=== PATIENT | female | born 2005 | race Hispanic/Latino ===

== ENCOUNTER 2024-07-30 17:02 | Inpatient (IN) | payer OTHER, SELFPAY ==
[2024-07-30] VITALS (20 sets, daily range): BP systolic 81–126; BP diastolic 42–85; BMI 35.4; BMI 31.4
[2024-07-30 13:48] LABS: % Eosinophils 0.4 % (0-6); % Immature Granulocytes 0.7 % (0-0.5); % Lymphocytes 23.5 % (20.5-51.1); % Monocytes 4.1 % (1.7-9.3); % Neutrophils 71.3 % (42.2-75.2); Absolute Immature Granulocytes 0.1 10^3/uL (0-0.05); Absolute Lymphocytes 2.1 10^3/uL (1.2-3.4); Absolute Monocytes 0.4 10^3/uL (0.1-0.6); Absolute Neutrophils 6.5 10^3/uL (1.4-6.5); Hematocrit 27.4 % (37.0-47.0); Mean Corp Hgb Conc. 29.2 g/dL (33.0-37.0); Mean Corpuscular Hgb 25.9 pg (27.0-31.0); Mean Corpuscular Volume 88.7 fL (81.0-99.0); Mean Platelet Volume 9.1 fL (7.4-10.4); Nucleated Red Blood Cells % 0.3 %; Platelet Count 329 10^3/uL (130-400); Red Blood Cell Count 3.09 10^6/uL (4.20-5.40); White Blood Cell Count 9.1 10^3/uL (4.8-10.8)
[2024-07-30 14:07] LABS: AST (SGOT) 90 U/L (14-36); Albumin 2.6 g/dl (3.5-5.0); Alkaline Phosphatase 182 U/L (38-126); Blood Urea Nitrogen 9 mg/dl (7-17); Calcium 7.4 mg/dl (8.4-10.2); Carbon Dioxide 16 mmol/L (22-30); Chloride 105 mmol/L (98-107); Glucose 115 mg/dl (70-99); Potassium 3.6 mmol/L (3.5-5.1); Sodium 135 mmol/L (135-145); Total Bilirubin 2.6 mg/dl (0.2-1.3); eGFR > 60.00
[2024-07-30 14:13] LABS: Lactic Acid 6.1 mmol/L (0.7-2.0)
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
[2024-07-30] MEDS: DILAUDID 0.25 MG IV (14:38)
[2024-07-30] MEDS: ZOSYN 100 IV ×2 (15:01→21:41)
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
[2024-07-30 15:38] LABS: ALT (SGPT) 21 U/L (0-35)
[2024-07-30] MEDS: CLEOCIN 50 IV (15:44)
[2024-07-30] MEDS: NSS 1000 IV ×3 (15:50→17:11)
[2024-07-30] MEDS: VANCOCIN 540 MG IV (15:51)
--- NOTE | 2024-07-30 16:17 | HPS.HSE ---
Family Physician
-
Family Physician: NOT KNOW UNKNOWN - PT DOES
Chief Complaint
-
Severe Right Buttock Pain
History of Present Illness
Patient is a 18 y/o female without significant past medical history who presents with severe right buttock pain. Language line used for translation. Patient reports about 1.5 months ago she developed small pimples on her buttocks. Due to the
location she was unable to care for them properly and they got worse. She reports pain, particularly in the right buttock has gotten significantly worse. She reports only tolerating small amount of food and then she develops vomiting. She denies
fevers, sweats or chills. She reports other symptoms including hair loss, dry skin and easy bruising.
Medical History
Past Medical History
Past Medical History: Reports None
Past Surgical History: Reports None
Social History
Tobacco: Non-smoker
Alcohol: None
Drug: None
Living: Other (Lives with Friends)
Family History
Family History: Not pertinent
Allergies / Home Medications
Allergies reflects when Allergies were last updated in [facility].
Home Medications with original date entered in [facility]
Allergy/Medication List:
Allergies
Allergy/AdvReac Type Severity Reaction Status Date / Time
No Known Allergies Allergy Unverified 07/30/24 14:28
Home Medications
No Meds [No Current Medications] 07/30/24
Review of Systems
-
Unable to obtain full review of systems at this time due to: Language Barrier
Physical Exam
Vital Signs
Vital Signs
Temp Pulse Resp BP Pulse Ox
99.5 F 159 34 119/77 100
07/30/24 13:40 07/30/24 14:37 07/30/24 14:37 07/30/24 14:37 07/30/24 13:40
Physical Exam
General: Well Developed, Well Nourished, Conversant, Obese and Other (Appears in pain)
HEENT: Anicteric and Other (Notable hair loss; Dry Lips)
Respiratory: Clear and Non Labored Respirations
Cardiac: S1/S2, Regular Rhythm and Tachycardia
GI: Soft, Tender (Mild throughout) and Other (Protuberant)
Rectal: Hemorrhoids
Musculoskeletal: No Clubbing and No Cyanosis
Skin: Other (Very dry flaking skin; Significant erythema right buttock, perineum and vulva with some superficial ulcers right buttock; Excoriation from scratching noted; Notable bruising on the bilateral upper extremities)
Neuro: Awake, Alert, Oriented and Nonfocal/grossly intact
Psych: Calm and Other (Appears to have poor insight into her medical condition)
Laboratory Results
-
07/30/24 13:38
07/30/24 13:38
Laboratory Results
Lactic Acid 6.1 mmol/L (0.7-2.0) H* 07/30/24 13:38
Total Bilirubin 2.6 mg/dl (0.2-1.3) H 12 13:38
AST 90 U/L (14-36) H 07/30/24 13:38
ALT 21 U/L (0-35) 07/30/24 13:38
Alkaline Phosphatase 182 U/L (38-126) H 07/30/24 13:38
Data Reviewed
-
CT Scan: Other (Abd/Pelvis CT scan )
Lab Data: Labs Reviewed by me
Impression/Plan
-
Septic Shock with Significant Lactic Acidosis
Right Buttock Cellulitis, high clinical concern for deep infection
-Patient evaluated by Surgery in ED
-Await Abd/Pelvis CT scan
-Continue broad spectrum antibiotics with Vancomycin and Zosyn
-Await blood cultures
-Continue to trend lactic acid
-Start Levophed
Severe Normocytic Anemia, unclear etiology
-Patient reports no menses for several months
-Notable skin bruising
-Check iron, ferritin, TIBC, Vit B12, LDH and haptoglobin
-Blood consent obtained by Shana Johns PA-C using Language Line at time of admission and scanned into chart
Elevated LFTs, possibly related to sepsis/shock liver
-Await CT scan result
-Repeat LFTs in AM
-Consider Hepatitis serologies
-Consider GI consult
DVT proph: SCDs
Code Status: Full Code
[2024-07-30] MEDS: DILAUDID 0.5 MG IV (16:43)
--- NOTE | 2024-07-30 16:52 | CON.INTV ---
Consultation
Consultation Request
Date/Time Consultation Requested: 07/30/2024 - 1609
Date/Time Consultation Performed: 07/30/2024 - 1639
Requesting Provider: Shana Johns PA-C
Performing Provider: Bryce Vergara MD
Reason for Consultation: Lactic acidosis/Hypotensive
Medical History
-
Chief Complaint: Worsening pain on wound on buttocks with chills and fast heart rate
History of Present Illness:
18-year-old female with a past medical history of physical deconditioning due to recent knee injury who presents with worsening pain on a right buttocks wound with chills and fast heart rate. Patient is Bhutanese-speaking and the lead systems developer
was used (rn stars number: [id number]). She says that she fell recently while at work at [employer] and hurt her knee. She has been apparently bedridden after this injury for the last 2 weeks or so with reduced mobility over last 1.5 months. She
developed a pressure injury on her right buttocks which has been increasingly becoming more painful and inflamed. It has been affecting her ability to walk due to the pain. She is also been having abdominal pain with vomiting + diarrhea over the
last week and eating less. In the ER she was afebrile to 99.5 �F, tachycardic to 152 bpm, breathing at 35-40 breaths/min, BP 101/79 and saturating 100% on room air. Labs showed WBC was WNL at 9.1, Hb 8, serum bicarbonate level 16 with pH 7.28,
pCO2 26, glucose 115, lactate 6.1, albumin level 2.6, UDS positive for opiates and TSH WNL at 3.99. Blood cultures were collected. CT chest/abdomen/pelvis was obtained showing trace bilateral pleural effusions (R >L) with severe fatty infiltration
and hepatomegaly, with a nonocclusive splenic vein thrombus with no focal collection or abscess seen in the right pelvic/buttocks region. In the ER she was given clindamycin, IV vancomycin, Zosyn, dilaudid, and NS 0.9% x 2 L. Due to hypotension
with SBP's in the 80s, Levophed was ordered and she was transferred to the ICU for further care. Senior Marketing Coordinator services consulted for additional management/recommendations.
When I saw the patient she was resting in bed in no acute distress. lead systems developer was used (see number above). She endorses pain in her right buttocks which she says the pain has been worsening with a burning sensation for the last several
days. Her friend was at bedside. She currently denies shortness of breath, chest pain, CHATTERJEE, or nausea.
PMHx: Recent knee injury leading to immobilization and right buttocks wound
PSHx: Noncontributory
Past Medical History
Past Medical History: Other (Above as per HPI)
Past Surgical History: Other (Above as per HPI)
Social History
Tobacco: Non-smoker
Alcohol: None
Drug: None
Personal: Single
Living: With Roomate
Employment: Not Employed (Previously worked at [employer]
Family History
Family History: Reviewed & Not Pertinent
Allergies / Home Medications
Allergies
Allergy/AdvReac Type Severity Reaction Status Date / Time
No Known Allergies Allergy Unverified 07/30/24 14:28
Home Medications
�Medication �Instructions �Recorded �Confirmed �Last Taken �Type
No Meds [No Current Medications] 07/30/24 07/30/24 Unknown History
Review of Systems
-
History Source: Patient
All other systems: Negative unless noted
Vitals / Labs / Diagnostic Testing
Vital Signs
Temp Pulse Resp BP Pulse Ox
99.5 F 139 38 102/60 97
07/30/24 13:40 07/30/24 16:15 07/30/24 16:15 07/30/24 16:00 07/30/24 15:45
Lab Data
07/30/24 13:38
07/30/24 13:38
Diagnostic Testing:
Physical Exam
-
HEENT: Normocephalic and Anicteric
Cardiovascular: S1/S2, Peripheral Edema (negative) and Other (Tachycardic)
Respiratory: Wheeze (negative), Rales (bibasilar (L>R)), Rhonchi (negative) and Non-Labored Respirations
GI: Soft, Distended (Abdominal obesity), Tender (Periumbilical) and Normal Bowel Sounds
Neurology: AO x 3 and Tremors (negative)
Skin: Warm, Dry and Other (Large area of erythema with multiple skin tears seen on her right buttock with foul odor; erythema spreads into the perineum; no purulence seen; area is painful to palpation; slow ooze of blood seen from right buttock)
General: Respiratory Distress (negative), Pain (right buttocks wound), Chills (negative) and Sweats (negative)
Assessment
-
Assessment: 18-year-old female with a past medical history of physical deconditioning due to recent knee injury who presents with worsening pain on a right buttocks wound with chills and fast heart rate. Patient is Bhutanese-speaking and the Bhutanese
rn stars was used (rn stars #: [id number]). She says that she fell recently while at work at [employer] and hurt her knee. She has been apparently bedridden after this injury for the last 2 weeks or so with reduced mobility over last 1.5 months.
She developed a pressure injury on her right buttocks which has been increasingly becoming more painful and inflamed. It has been affecting her ability to walk due to the pain. She is also been having abdominal pain with vomiting + diarrhea over
the last week and eating less. In the ER she was afebrile to 99.5 �F, tachycardic to 152 bpm, breathing at 35-40 breaths/min, BP 101/79 and saturating 100% on room air. Labs showed WBC was WNL at 9.1, Hb 8, serum bicarbonate level 16 with pH 7.28,
pCO2 26, glucose 115, lactate 6.1, albumin level 2.6, UDS positive for opiates and TSH WNL at 3.99. Blood cultures were collected. CT chest/abdomen/pelvis was obtained showing trace bilateral pleural effusions (R >L) with severe fatty infiltration
and hepatomegaly, with a nonocclusive splenic vein thrombus with no focal collection or abscess seen in the right pelvic/buttocks region. In the ER she was given clindamycin, IV vancomycin, Zosyn, dilaudid, and NS 0.9% x 2 L. Due to hypotension
with SBP's in the 80s, Levophed was ordered and she was transferred to the ICU for further care. Senior Marketing Coordinator services consulted for additional management/recommendations.
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
Impression:
#Shock: Multiple variables including hypovolemia from reduced PO intake + sepsis from right buttocks wound with extensive cellulitis
#Lactic acidosis with hypotension
#Right buttocks cellulitis with multiple skin tears which are slowly oozing blood
#Tachycardic likely due to SIRS criteria from right buttocks infection
#Transaminitis with hyperbilirubinemia
#Anemia (unknown baseline)
#Metabolic acidosis with increased anion gap due to lactic acidosis
#Hypoalbuminemia
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
#Hepatomegaly with severe fatty infiltration likely due to obesity
#Small bilateral pleural effusions (too small to sample)
#Obesity (BMI: 35.4)
Plan:
- Start levophed and titrate to keep MAP>65
- If levo requirements reach 10mcg/min or greater then would start vasopressin at that time
- Continue with broad-spectrum antibiotics (IV vanco + Zosyn) with surgery consult and wound care consult
- IVF with LR at 120cc/hr
- Follow up blood Cx X 2 (collected 07/30/2024)
- Continue to trend serum HCO3 level; her lactate how normalized, and her ABG showed a pH of 7.28. No need for bicarbonate infusion at this time; continue to monitor
- trend LFTs; check abdominal ultrasound with dopplers given that her LFTs are elevated with elevated T. bili and abdominal pain; check with dopplers given her splenic vein thrombus seen on CT
- Maintain SpO2 >90-94% with supplemental oxygen as needed
- Replete electrolytes with K>4, Mg>2
- Maintain euglycemia with goal BG 140-180
- Trend H/H and transfuse if needed to keep Hb>7g/dL; keep plt>20k, unless there is concern for bleeding then keep plt>50k
- prn nebulized bronchodilators - not currently bronchospastic
- Incentive spirometer encouraged 10x per hour for at least 4 hrs a day
- DVT ppx: SCDs for now given that her right buttock wound is bleeding --> once this bleeding is resolved then would consider starting systemic anticoagulation given presence of splenic vein thrombosis
Admit to ICU for this critically ill patient.
Critical care statement: A total of 40 minutes of critical care time was provided for this patient today. This includes management of unstable vital signs, evaluation of the patient at bedside, reviewing the patient's pertinent medical records
including radiographs, microbiology, laboratory evaluations, and discussion with primary team, consultants, pharmacy, nutrition, physical therapy, case management, charge nurse, critical care nursing, and respiratory therapy.
Data:
CT chest/abdomen/pelvis with IV contrast 07/30/2024:
Trace bilateral pleural effusion, right greater than left. Bibasilar atelectasis.
Hepatomegaly. Severe fatty infiltration.
Nonocclusive splenic vein thrombus. The portal vein is patent.
Mild nonspecific soft tissue stranding within the ischiorectal fossa fat, bilaterally, right slightly greater than left. However, no focal collection or abscess.
[2024-07-30 17:38] LABS: Venous Blood Gas B.E. -13.4 mmol/L (-4 to +4); Venous Blood Gas HCO3 12.2 mmol/L (22-27); Venous Blood Gas O2 Sat % 99.5 %; Venous Blood Gas pCO2 26 mmHg (35-48); Venous Blood Gas pH 7.28 (7.32-7.43); Venous Blood Gas pO2 137 mmHg (30-50)
--- NOTE | 2024-07-30 17:44 | W.PN.UPDATE ---
Update Note
Progress Note Update
This note serves as an addendum to the H&P by plunger shovel operator KERMIT Marjorie JENKINS
HPI
18 Japanese speaker F no significant past medical history who presents with severe right buttock pain. Language line used for translation.
- reports about 1.5 months ago she developed small pimples on her buttocks. Due to the location she was unable to care for them properly and they got worse.
- reports pain, particularly in the right buttock has gotten significantly worse. S
- She denies fevers, sweats or chills.
- She reports other symptoms including hair loss, dry skin and easy bruising.
Reviewed VS:
Vital Signs
Temp Pulse Resp BP Pulse Ox
99.5 F 134 25 99/62 97
07/30/24 13:40 07/30/24 16:45 07/30/24 16:45 07/30/24 16:30 07/30/24 15:45
PE
General: Conversant, Obese and looks toxic
HEENT: Notable hair loss; Dry Lips)
Respiratory: Clear and Non Labored Respirations
Cardiac: S1/S2, Regular Rhythm and Tachycardia
GI: Soft, Tender (Mild throughout) and Other (Protuberant)
Rectal: Hemorrhoids
Musculoskeletal: No Clubbing and No Cyanosis
Skin:
Significant erythema right buttock, perineum and vulva with some superficial ulcers right buttock; Excoriation from scratching noted; Notable bruising on the bilateral upper extremities
Neuro: Awake, Alert, Oriented and Nonfocal/grossly intact
Psych: Appears to have poor insight into her medical condition)
Laboratory Tests
07/30/24
13:38
WBC 9.1
Hgb 8.0 L
MCV 88.7
Carbon Dioxide 16 L
Creatinine 0.3 L
Lactic Acid 6.1 H*
Albumin 2.6 L
BCx sent
NO PRIOR hospitalist admission:
ASSESSMENT & PLAN
Septic Shock despite 2 L of septic fluid bolus
significant Lactic Acidosis
Associated Right Buttock Cellulitis, high clinical concern for deep infection
- Switch to LR 120/H in place of NS
- Pressor : Start Levophed
- empiric Vancomycin and Zosyn
- f/u BCx
- trend lactic acid
- Await CT AP scan to eval for necrotizing fascitis
- GS consulted evaluated in ED
Severe Normocytic Anemia, unclear etiology
-Patient reports no menses for several months
-Notable skin bruising
-Check iron, ferritin, TIBC, Vit B12, LDH and haptoglobin
-Blood consent obtained by Shana Chong PA-C using Language Line at time of admission and scanned into chart
Elevated LFTs, possibly related to sepsis/shock liver
-Await CT scan result
-Repeat LFTs in AM
-Consider Hepatitis serologies
-Consider GI consult
Concerning for HIV
-consent for HIV
DVT proph: SCDs
Code: Full code
ICU
Total Critical Care Time__60 ___ minutes. I was immediately available to the patient and staff. I personally examined, reviewed labs, diagnostic images/reports, interpretations, treatment plans, discussed patient care with other providers and
family or caregivers (if patient is unable to make decisions), entered orders as appropriate and documented the medical record.
[2024-07-30 17:46] LABS: Lactic Acid 0.8 mmol/L (0.7-2.0)
[2024-07-30] MEDS: LEVOPHED 250 IV (17:48)
[2024-07-30 17:51] LABS: HCG, Serum Qualitative Screen Negative
[2024-07-30 17:52] LABS: Folate 2.2 ng/ml (2.76-20); Vitamin B12 448 pg/ml (239-931)
[2024-07-30 17:52] LABS: Venous Blood Gas O2 Therapy Oxygen/Room Air 21%
[2024-07-30] MEDS: LR 1000 IV (17:56)
[2024-07-30 17:58] LABS: Iron 68 ug/dl (37-170); LDH 185 U/L (120-246)
[2024-07-30 18:07] LABS: Percent Saturation 45 % (20-50); Total Iron Binding Capacity 149 ug/dl (265-497)
[2024-07-30 18:15] LABS: Urine Albumin 1+ (Neg - Trace); Urine Bilirubin 1+ (Negative); Urine Character Clear (Clear); Urine Color Yellow; Urine Glucose Negative (Negative); Urine Ketone Trace (Negative); Urine Leukocyte Trace (Negative); Urine Nitrite Negative (Negative); Urine Occult Blood Negative (Negative); Urine Urobilinogen 3+ (Neg - 1+)
[2024-07-30 18:25] LABS: Urine Bacteria Few (Negative); Urine Red Blood Cell 0-2 /HPF (0-2); Urine Squamous Cell 0-2 /LPF (Few); Urine White Cell 0-2 /HPF (0-5)
[2024-07-30 18:31] LABS: Amphetamines Negative (Negative); Barbiturates Negative (Negative); Benzodiazepines Negative (Negative); Buprenorphine Negative (Negative); Cocaine Negative (Negative); Marijuana Negative (Negative); Methadone Negative (Negative); Methamphetamines Negative (Negative); Opiates Positive (Negative); Phencyclidine Negative (Negative); Tricyclic Antidepressants Negative (Negative)
[2024-07-30 18:57] LABS: Fentanyl, Urine Negative (Negative)
--- NOTE | 2024-07-30 20:00 | PTCARENOTE ---
Patient received from the ED accompanied by RN and friend. Transferred and admitted to ICU bed 3361. See assessment charted. Extensive Bilateral buttock wounds noted. Patient is malodorous and unkempt. Complete bath given with linen change. Very dry
on assessment. VSS. Levophed turned off, MAP 96. ST on CM 110-120s.
--- NOTE | 2024-07-30 20:12 | PHA.VAN.IN ---
Assessment
- Assessment
Renal Function: Appears similar to baseline
Concomitant Antimicrobials: Piperacillin/tazobactam, Clindamycin
AUC Dosing Plan
- Dosing Variables
Dosing Weight (kg): 82.2
Dosing CrCl (ml/min): 176
Vd coefficient (L/kg): 0.7
- Empiric Dosing
Initial / Loading Dose: Vanco 2000 mg loading dose given 07/30/24 at 15:01
Maintenance Regimen: Vanco 1500 mg Q12H Starting 07/31/24 0600
Estimated AUC (mcg*h/mL): 521
Estimated Peak (mcg*h/mL): 35.9
Estimated Trough (mcg/ml): 11.5
Estimated Half Life (H): 6.4
- Monitoring
No levels ordered at this time: Consider level in the next few days
Pharmacokinetics Vancomycin I
- -
Patient Age: 18
Patient Sex: Female
Vancomycin Day #: 1
Indication: Skin And Soft Tissue
Requesting Provider: Nat/Colin
Pertinent Antimicrobial Allergies:
NKDA
Height / Weight:
Height 5 ft
Actual Weight 82.2 kg
- Vital Signs / Lab Results
Temp Pulse Resp BP Pulse Ox
99.6 F 125 25 108/67 99
07/30/24 17:54 07/30/24 19:15 07/30/24 19:15 07/30/24 19:00 07/30/24 19:15
Lab Results - Hematology
07/30/24
13:38
WBC 9.1
Lab Results - Chemistry
07/30/24
13:38
BUN 9
Creatinine 0.3 L
Albumin 2.6 L
07/30/24 07/30/24 07/30/24
13:38 17:15 21:30
Lactic Acid 6.1 H* 0.8 Cancelled
Lab Results - Urine
07/30/24
17:15
Urine Nitrite (Reflex) Negative
Leukocyte Esterase Rfl Trace A
Urine WBC (Reflex) 0-2
Ur Squamous Epith Cells 0-2
Urine Bacteria (Reflex) Few A
[2024-07-30 21:10] LABS: TSH Reflex To Free T4 3.99 uIU/ml (0.47-4.68)
--- NOTE | 2024-07-30 21:20 | PTCARENOTE ---
Patient assisted to BSC with assist x 1. Voids 200 cc mekhi urine, cloudy. Skin care given and assisted back to bed. Transfers steadily but LEs weak.
[2024-07-30] MEDS: PEPCID 20 MG IV (21:41)
[2024-07-30] MEDS: TYLENOL 650 MG PO (21:49)
[2024-07-31] VITALS (23 sets, daily range): BP systolic 84–124; BP diastolic 60–82; BMI 32.0
--- NOTE | 2024-07-31 | PTCARENOTE ---
At 2200 patient was provided snack and water. Did not tolerate, vomited. Notified Nilson Conn APN. Made NPO. Incontinent of large amount of urine. Skin care given with linen change. Refused Tigan. Otherwise assessment essentially unchanged.
--- NOTE | 2024-07-31 01:45 | PTCARENOTE ---
Addendum entered by Caroline Grajeda RN 07/31/24 07:39:
Refusing SCDs due to LE discomfort
Original Note:
up to BSC with assistance x 2. Very weak and unsteady on feet. Voided 200, skin care and assisted back to bed.
[2024-07-31] MEDS: LR 1000 IV ×2 (03:11→16:41)
[2024-07-31] MEDS: ZOSYN 100 IV ×4 (03:58→21:32)
[2024-07-31] MEDS: DILAUDID 0.25 MG IV ×4 (03:58→16:54)
--- NOTE | 2024-07-31 04:00 | PTCARENOTE ---
No marked change in assessment. Labs drawn and sent.
[2024-07-31 05:41] LABS: Hematocrit 18.5 % (37.0-47.0); Hemoglobin 5.6 g/dL (12.0-16.0); Mean Corp Hgb Conc. 30.3 g/dL (33.0-37.0); Mean Corpuscular Hgb 26.7 pg (27.0-31.0); Mean Corpuscular Volume 88.1 fL (81.0-99.0); Mean Platelet Volume 9.2 fL (7.4-10.4); Platelet Count 235 10^3/uL (130-400); Red Cell Dist. Width 18.3 % (11.5-14.5); White Blood Cell Count 3.5 10^3/uL (4.8-10.8)
[2024-07-31 05:54] LABS: ALT (SGPT) 11 U/L (0-35); AST (SGOT) 50 U/L (14-36); Alkaline Phosphatase 134 U/L (38-126); Blood Urea Nitrogen 6 mg/dl (7-17); Calcium 6.9 mg/dl (8.4-10.2); Carbon Dioxide 18 mmol/L (22-30); Chloride 105 mmol/L (98-107); Direct Bilirubin 1.7 mg/dl (0.0-0.4); Estimated Creatinine Clearance > 125 ml/min; Glucose 101 mg/dl (70-99); Magnesium 1.5 mg/dl (1.6-2.3); Phosphorus 3.4 mg/dl (2.5-4.5); Sodium 135 mmol/L (135-145); Total Bilirubin 2.3 mg/dl (0.2-1.3); eGFR > 60.00
--- NOTE | 2024-07-31 06:00 | PTCARENOTE ---
H/H low. Labs redrawn per order.
[2024-07-31] MEDS: VANCOCIN 530 MG IV ×2 (06:12→17:08)
[2024-07-31 07:15] LABS: Blood Urea Nitrogen 6 mg/dl (7-17); Calcium 7.1 mg/dl (8.4-10.2); Carbon Dioxide 20 mmol/L (22-30); Chloride 106 mmol/L (98-107); Estimated Creatinine Clearance > 125 ml/min; Glucose 78 mg/dl (70-99); Magnesium 1.5 mg/dl (1.6-2.3); Sodium 134 mmol/L (135-145); eGFR > 60.00
[2024-07-31 07:24] LABS: Hematocrit 17.9 % (37.0-47.0); Hemoglobin 5.4 g/dL (12.0-16.0); Mean Corp Hgb Conc. 30.2 g/dL (33.0-37.0); Mean Corpuscular Hgb 26.3 pg (27.0-31.0); Mean Corpuscular Volume 87.3 fL (81.0-99.0); Mean Platelet Volume 9.3 fL (7.4-10.4); Platelet Count 227 10^3/uL (130-400); Red Blood Cell Count 2.05 10^6/uL (4.20-5.40); Red Cell Dist. Width 18.5 % (11.5-14.5); White Blood Cell Count 3.1 10^3/uL (4.8-10.8)
--- NOTE | 2024-07-31 07:25 | PTCARENOTE ---
Report given to oncoming OTILIA Rush, questions answered. #16 FR Huffman catheter inserted via sterile technique, tolerated well with yellow urine.
--- NOTE | 2024-07-31 07:36 | PTCARENOTE ---
up to BSC with assistance x 2. Very weak and unsteady on feet. Voided 200, skin care and assisted back to bed.
[2024-07-31] MEDS: PEPCID 20 MG IV ×2 (08:14→21:03)
[2024-07-31] MEDS: FLUSH (NSS) 1 FLUSH IV (08:15)
[2024-07-31 08:20] LABS: INR 1.23; PT 15.8 Sec (11.4-14.6)
[2024-07-31 08:21] LABS: APTT 40.5 Sec (23.4-35.0)
--- NOTE | 2024-07-31 08:31 | W.PN.INTV ---
Today's Communication / Plan
Recommendations
Keep MAP >65
Pain control
PICC team is working on IV access - right arm is more swollen but ultrasound shows no evidence of thrombus
Antibiotics
Follow-up blood cultures (NGTD)
Transfuse blood products to maintain Hb >7 (patient is not actively bleeding besides low bruise on right buttocks)
Surgery consult with recommendation appreciated
Wound care
If patient remains hemodynamically stable today without vasopressors for >6-8 hours then will downgrade out of ICU to telemetry. Once downgraded then we will sign off. Please call back with any additional questions or concerns.
Assessment
-
Assessment: 18-year-old female with a past medical history of physical deconditioning due to recent knee injury who presents with worsening pain on a right buttocks wound with chills and fast heart rate. Patient is Nicaraguan-speaking and the [place]araguan
whiting can worker was used (whiting can worker #: [id number]). She says that she fell recently while at work at [employer] and hurt her knee. She has been apparently bedridden after this injury for the last 2 weeks or so with reduced mobility over last 1.5 months.
She developed a pressure injury on her right buttocks which has been increasingly becoming more painful and inflamed. It has been affecting her ability to walk due to the pain. She is also been having abdominal pain with vomiting + diarrhea over
the last week and eating less. In the ER she was afebrile to 99.5 �F, tachycardic to 152 bpm, breathing at 35-40 breaths/min, BP 101/79 and saturating 100% on room air. Labs showed WBC was WNL at 9.1, Hb 8, serum bicarbonate level 16 with pH 7.28,
pCO2 26, glucose 115, lactate 6.1, albumin level 2.6, UDS positive for opiates and TSH WNL at 3.99. Blood cultures were collected. CT chest/abdomen/pelvis was obtained showing trace bilateral pleural effusions (R >L) with severe fatty infiltration
and hepatomegaly, with a nonocclusive splenic vein thrombus with no focal collection or abscess seen in the right pelvic/buttocks region. In the ER she was given clindamycin, IV vancomycin, Zosyn, dilaudid, and NS 0.9% x 2 L. Due to hypotension
with SBP's in the 80s, Levophed was ordered and she was transferred to the ICU for further care. Media Supervisor services consulted for additional management/recommendations.
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
Impression:
#Shock: Multiple variables including hypovolemia from reduced PO intake + sepsis from right buttocks wound with extensive cellulitis - shock state now resolved
#Lactic acidosis with hypotension - lactic acidosis now resolved
#Right buttocks cellulitis with multiple skin tears which are slowly oozing blood
#Tachycardic likely due to SIRS criteria from right buttocks infection - HR now normalized
#Transaminitis with hyperbilirubinemia - improving
#Anemia (unknown baseline) - worse (?dilutional)
#Metabolic acidosis with increased anion gap due to lactic acidosis - acidosis improving
#Hypoalbuminemia
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
#Hepatomegaly with severe fatty infiltration likely due to obesity
#Small bilateral pleural effusions (too small to sample)
#Obesity (BMI: 35.4)
Plan:
- Pt now off levophed; keep MAP>65
- Continue with broad-spectrum antibiotics (IV vanco + Zosyn) with surgery consult and wound care consult
- Surgery saw patient and there is no acute need for surgical intervention at this time
- IVF with LR at 120cc/hr --> stop this today as pt is eating
- Follow up blood Cx X 2 (collected 07/30/2024 - NGTD)
- Continue to trend serum HCO3 level; her lactate how normalized, and her ABG showed a pH of 7.28. No need for bicarbonate infusion at this time; continue to monitor; trend VBG to assess pH + pCO2
- trend LFTs; check abdominal ultrasound with dopplers given that her LFTs are elevated with elevated T. bili and abdominal pain; check with dopplers given her splenic vein thrombus seen on CT
- Abdominal ultrasound shows diffusely fatty liver with hepatomegaly with no cholelithiasis, gallbladder wall thickening or biliary ductal dilatation; there was normal directional blood flow in the hepatic and portal veins and unable to confirm
splenic vein thrombosis
- Maintain SpO2 >90-94% with supplemental oxygen as needed
- Replete electrolytes with K>4, Mg>2
- Maintain euglycemia with goal BG 140-180
- Trend H/H and transfuse if needed to keep Hb>7g/dL; keep plt>20k, unless there is concern for bleeding then keep plt>50k
- prn nebulized bronchodilators - not currently bronchospastic
- Incentive spirometer encouraged 10x per hour for at least 4 hrs a day
- DVT ppx: SCDs for now given that her right buttock wound is bleeding --> once this bleeding is resolved then would consider starting systemic anticoagulation given presence of splenic vein thrombosis
If patient remains off vasopressors for at least 6-8 hours and remains clinically stable then will downgrade to telemetry. Once downgraded then home care and home health aides teacher/pulmonary service will sign off. Please call back if there are any additional questions or
concerns.
Data:
CT chest/abdomen/pelvis with IV contrast 07/30/2024:
Trace bilateral pleural effusion, right greater than left. Bibasilar atelectasis.
Hepatomegaly. Severe fatty infiltration.
Nonocclusive splenic vein thrombus. The portal vein is patent.
Mild nonspecific soft tissue stranding within the ischiorectal fossa fat, bilaterally, right slightly greater than left. However, no focal collection or abscess.
Total time spent today was 78 minutes for this encounter. Time includes reviewing laboratory test/imaging results, reviewing pertinent medical records, obtaining and reviewing medical history, performing an appropriate exam, ordering medications,
tests and procedures. Time also includes documentation of this encounter, coordinating patient care and communicating with other healthcare professionals. Total time does not include separately billed tests performed on this date of service.
Subjective Dataa
Subjective Data
Date of Service:
Date of Service: July 31, 2024
Chief Complaint: Media Supervisor Follow Up
Subjective:
Patient seen and evaluated today at bedside. Heart rate 97, BP 119/76 and saturating 99% on room air. Still has pain on her right buttocks region. Afebrile overnight. She denies chest pain, CHATTERJEE, shortness of breath, fevers or chills.
Review of Systems
General: Other (Negative unless mentioned above)
Objective Data
Data Reviewed
Vital Signs / I&O / Oxygen:
Vital Signs
Temp Pulse Resp BP Pulse Ox
97.9 F 109 24 109/68 100
07/31/24 09:48 07/31/24 09:48 07/31/24 09:48 07/31/24 09:48 07/31/24 09:48
Intake and Output
07/30/24 07/31/24 08/01/24
06:59 06:59 06:59
Intake Total 2009 / 2260 250 / 250
Output Total 500 / 500
Balance 1510 / 1760 250 / 250
SaO2 100
Physical Exam
General: Respiratory Distress (negative), Pain (right buttocks region), Chills (negative) and Sweats (negative)
HEENT: Normocephalic and Anicteric
Cardiovascular: S1-S2, Rub (negative) and Peripheral Edema (negative)
Respiratory: Wheeze (negative), Crackles (Bibasilar (L >R)), Rhonchi (negative), Non-Labored Respirations and Stridor (negative)
GI: Distended (Abdominal obesity), Non Tender and Normal Bowel Sounds
Neurology: Awake, Alert and Tremors (negative)
Skin: Warm, Dry, Cyanosis (negative), Jaundice (negative) and Other (arge area of erythema with multiple skin tears seen on her right buttock with foul odor; erythema spreads into the perineum; no purulence seen; area is painful to palpation; slow
ooze of blood seen from right buttock)
Labs/Micro/Reports
Lab Data
07/31/24 06:22
07/31/24 06:22
Laboratory Results
07/31/24
07:59
PT 15.8 H
INR 1.23
APTT 40.5 H
--- NOTE | 2024-07-31 08:37 | PTCARENOTE ---
Addendum entered by Adri Marshall RN 07/31/24 09:54:
first unit PRBC initiated
Original Note:
report received, stat labs sent. increased anxiety and pain. assessments and care provided utilizing video mechanic and welder. monitor sinus tachycardia. generalized anasarca. oriented. c/o tingling sensation soles of feet, left more than right. Dr Molina
at bedside. wound assessments per work list. lips cracked with some bleeding. abdomen soft, hypoactive bowel sounds. c/o generalized severe pain, cries with touch. medicated with dilaudid per prn order. arms and legs bruised.
--- NOTE | 2024-07-31 08:52 | PHA.VAN.FU ---
Vancomycin Assessment / Plan
- Assessment
Renal Function: Stable
WBC's are: Trending Down
In the past 24 hrs, patient has been: Afebrile
Concomitant Antimicrobials: Piperacillin-tazobactam
- Dosing Plan
Continue: Vanc 1500mg IV q12H
- Monitoring Plan
No level(s) ordered at this time: Will order levels after 08/01 1800 dose
- Follow Up
Pharmacy will continue to follow.
Vancomycin Follow UP
- -
Patient Age: 18
Patient Sex: Female
Vancomycin Day #: 2
Indication: Skin And Soft Tissue
Requesting Provider: Nat/Colin
Pertinent Antimicrobial Allergies:
NKDA
Height / Weight:
Height 5 ft 4 in
Actual Weight 82.8 kg
- Vital Signs / Lab Results
Temp Pulse Resp BP Pulse Ox
97.9 F 101 25 118/64 97
07/31/24 08:05 07/31/24 06:00 07/31/24 06:00 07/31/24 04:00 07/31/24 06:00
Lab Results - Hematology
07/30/24 07/31/24 07/31/24
13:38 04:42 06:22
WBC 9.1 3.5 L 3.1 L
Lab Results - Chemistry
07/30/24 07/31/24 07/31/24
13:38 04:42 06:22
BUN 9 6 L 6 L
Creatinine 0.3 L 0.4 L 0.4 L
Estimated Creat Clear > 125 > 125
Albumin 2.6 L 2.0 L
07/30/24 07/30/24 07/30/24
13:38 17:15 21:30
Lactic Acid 6.1 H* 0.8 Cancelled
Lab Results - Urine
07/30/24
17:15
Urine Nitrite (Reflex) Negative
Leukocyte Esterase Rfl Trace A
Ur Squamous Epith Cells 0-2
--- NOTE | 2024-07-31 09:04 | CON.ID ---
Consultation
-
Date/Time Consultation Requested: 07/30/20241957
Date/Time Consultation Performed: 07/31/2024 0830
Requesting Provider: Shana Johns PA-C
Performing Provider: Dr. Cruz
Reason for Consultation: Bilateral buttock cellulitis
Chief Complaint / Past History
History of Present Illness
Domenica Paulson is a 18-year-old female being evaluated at the request of Shana Johns regarding buttock cellulitis. History is obtained from chart review, along with patient interview (via language line).
The patient reports no prior medical history and states that she was in her usual state of health until approximately 1-1/2 months ago. She reports that she recently had a knee injury, having fallen while she was working at [employer]. She reports
the knee injury has gotten worse, with decreased overall mobility over the past 1-1/2 months, but worse over the past approximately 2 weeks.
She also reports that she developed a pimple on her buttock area approximately 1-1/2 months ago when she tried to take care of, but over the interval time discomfort in the buttock region has gotten worse. She found it difficult to take care of at
home, and combined with her decreased mobility and reportedly being bedbound over the past 2 weeks, it has grown increasingly more painful.
Additional history indicates that she has been having abdominal pain with vomiting along with diarrhea over the past week. She has had decreased p.o. intake. She noted some bloody drainage on her bed sheets at home. Currently she has the most
pain in the right buttock region, but notes that discomfort extends out from that area. She additionally reports some bilateral heel discomfort. She notes no prior history of pimples or carbuncles. She has no sick contacts.
Past History
Past Medical History: None
Past Surgical History: None
Allergy History:
pineapple Allergy (Verified 07/31/24 00:13)
Unknown
Medications Reviewed: Yes
Current Antibiotics:
Vancomycin (dosed per pharmacy)
Zosyn 4.5 g IV every 6 hours
Social History
Tobacco: Non-Smoker
Alcohol: None
Drug: None
Personal: Single
Living: Alone
Employment: Employed
Family History
Family History: Not Pertinent
Review of Systems
Vital Signs
Temp Pulse Resp BP Pulse Ox
97.9 F 101 25 118/64 97
07/31/24 08:05 07/31/24 06:00 07/31/24 06:00 07/31/24 04:00 07/31/24 06:00
Physical Exam
Physical Exam
Constitutional: Comfortable, Acutely Ill, Non-toxic and Obese
Head: Normocephalic and Other (Partial alopecia)
Eyes: Pupils Equal, Pupils Round, No Conjunctival Hemorrhage and Sclera Anicteric
Oral: No Thrush and No Ulcers
Cardiovascular: Regular Rate and S1/S2; Negative S3/S4
Pulmonary: Clear; Negative Wheezes, Rales or Rhonchi
Gastrointestinal: Soft, Non Tender, Non Distended and Normal Bowel Sounds
Genito-Urinary: Huffman and Turbid Urine; Negative Hematuria
Extremities: Edema; Negative Cyanosis or Erythema
Musculoskeletal: Negative Joint Swelling or Joint Effusion
Skin: Warm and Dry
Wound: Other (Bilateral buttock excoriations and superficial wounds with marked surrounding erythema. No purulence noted.)
Neurological: Awake and Alert
Psychological: Calm
.
Lab / Diagnostic Study Results
07/31/24 06:22
07/31/24 06:22
Abs Immat Gran (auto) 0.1 10^3/uL (0-0.05) H 07/30/24 13:38
Absolute Neuts (auto) 6.5 10^3/uL (1.4-6.5) 07/30/24 13:38
Absolute Lymphs (auto) 2.1 10^3/uL (1.2-3.4) 07/30/24 13:38
Absolute Monos (auto) 0.4 10^3/uL (0.1-0.6) 07/30/24 13:38
Absolute Basos (auto) 0.0 10^3/uL (0-0.2) 07/30/24 13:38
Immature Gran % 0.7 % (0-0.5) H 07/30/24 13:38
Neutrophils % 71.3 % (42.2-75.2) 07/30/24 13:38
Lymphocytes % 23.5 % (20.5-51.1) 07/30/24 13:38
Monocytes % 4.1 % (1.7-9.3) 07/30/24 13:38
Eosinophils % 0.4 % (0-6) 07/30/24 13:38
Basophils % 0.0 % (0-2) 07/30/24 13:38
PT 15.8 Sec (11.4-14.6) H 07/31/24 07:59
INR 1.23 07/31/24 07:59
Lactic Acid Cancelled 07/30/24 21:30
Ur Squamous Epith Cells 0-2 /LPF (Few) 07/30/24 17:15
Microbiology Results
Micro:
07/31/24 04:22 MRSA Screen - Pending
Nose
07/30/24 15:56 Blood Culture - Pending
Blood/Venous
07/30/24 15:56 Blood Culture - Pending
Blood/Venous
Imaging:
07/30/2024 CT chest / abdomen / pelvis with IV contrast: Hepatomegaly with severe fatty infiltration. No retroperitoneal mass or adenopathy. Nonocclusive thrombus demonstrated throughout most of the splenic vein. Portal vein is patent. No
abdominal free air or ascites. No focal collection or abscess noted. Mild nonspecific soft tissue stranding within the ischial rectal fossa fat bilaterally, right slightly greater than left. No focal collection or abscess seen, although on direct
visualization, attenuation noted in the right buttock/gluteal area on image 105.
Assessment / Plan
Bilateral buttock/gluteal cellulitis with superficial tissue ulcerations
- Given history of immobility, suspect local reaction to incontinence
Marked anemia
SIRS (hypotension, tachycardia, leukopenia)
Fatty liver
Elevated bilirubin
Obesity
Recommendations:
Continue with empiric vancomycin and Zosyn for the present.
Monitor white count and temperature curve.
Trend hemoglobin. Transfusion per primary service.
Continue with supportive measures. Local care to the superficial buttock wounds.
Follow pending cultures.
Further recommendations as additional data is returned.
Care Review
Plan reviewed with: Nurse
[2024-07-31] MEDS: KCL 40 MEQ PO (09:26)
[2024-07-31] MEDS: FOLVITE 1 MG PO (09:26)
[2024-07-31] MEDS: MAGNESIUM SULFATE 50 IV (10:10)
--- NOTE | 2024-07-31 10:14 | CM ---
Initial assessment and case management consult completed with the assistance of Language Line audio/video medical office administrator
Pharmacy verified: [facility] @ [address] [place] [address], [place], [place]
No Family Physician
Lives with friend/primary contact, Chad Smith in a 2 story home; bathroom on 1st floor; has been staying on the 2nd floor; 2nd floor bath has tub w/shower
PLOF: reported she recently needs assistance with ADLs; unable to go up/down stairs; unable to walk; does not drive; currently unemployed
No DME
No history of SNF or Home Health utilization
Friend will transport home; takes the Bus when she needs transport
Midline IV Cath insertion ordered
No Medication Coverage; no medical insurance
Plan: CM will monitor hospital course and coordinate discharge planning when determined
[2024-07-31 10:39] LABS: Glycohemoglobin (HgbA1c) 4.7 % (4.0-5.6)
--- NOTE | 2024-07-31 11:55 | CON.ONC ---
Impression
Impression
Septic shock secondary to right buttocks wound with extensive cellulitis
Normocytic anemia, folic acid deficiency
Possible nonocclusive splenic vein thrombosis, seen on CT but not by ultrasound
Plan
Plan
I suspect that anemia is multifactorial, including marrow suppression from prolonged infection, folic acid deficiency/malnutrition, blood loss from wound. She also reports a history of anemia at baseline, of unknown etiology.
Would transfuse as clinically indicated
Fecal occult blood testing
Continue folic acid and B12 supplementation. Iron stores are replete, no need for iron supplementation.
Broad-spectrum antibiotics and supportive care per primary team
Would hold off on any anticoagulation for possible nonocclusive splenic vein thrombus in the setting of significant anemia, and thrombus not seen on ultrasound
Patient History
History of Present Illness
This is a 26-year-old Yi-speaking female who presented to the emergency room on July 30, 2024 with progressive buttock cellulitis. She reports that she fell at work 6 weeks ago and had a knee injury, for which she spent a lot of time in
bed. She developed a pimple to her buttocks, which has progressed and caused significant swelling and cellulitis. CBC upon admission was noted for hemoglobin of 8, white blood cell count of 9.1 and platelet count of 329. With IV fluids, her CBC
today shows hemoglobin of 5.4 with an MCV of 87.3. White blood cell count is 3.1 and platelet count is 227. Reticulocyte count is 2%. Haptoglobin is pending. Iron studies are consistent with anemia of chronic disease. Folate is low at 2.2. She
has had some bleeding from her cellulitis, but denies bleeding elsewhere. She has not had a menstrual period in many months. She reports nausea and vomiting, weight loss.
She does report a history of anemia, without further explanation. She has not needed blood transfusions in the past.
CT scans showed severe fatty liver with hepatomegaly, inflammation consistent with her cellulitis and possible nonocclusive thrombus in the splenic vein. Ultrasound of the abdomen did not identify any thrombus.
She is currently receiving broad-spectrum antibiotics, blood transfusion, and pressor support in the ICU.
She was interviewed with the use of a language line supervisor plate pasting
Past-Medical/Surgical History
Past medical/surgical history, only noted for anemia
Social history: Lives with friends, previously worked at [employer]
Family history: Mother with diabetes
Patient Medication
�Medication �Instructions �Recorded �Confirmed �Last Taken �Type
No Meds [No Current Medications] 07/30/24 07/30/24 Unknown History
Active Medications
Generic Name Dose Route Start Last Admin
Trade Name Freq PRN Reason Stop Dose Admin
Acetaminophen 650 mg 07/30/24 19:58 07/30/24 21:49
Acetaminophen 325 Mg Tablet PO 08/27/24 19:57 650 mg
Q4HPRN PRN Administration
CHATTERJEE/mild pain/temp > 100.4 F
Acetaminophen 650 mg 07/30/24 19:58
Acetaminophen 650 Mg Rectal Suppository RECTAL 08/27/24 19:57
Q4HPRN PRN
CHATTERJEE/ mild pain/ temp >/= 100.4F
Cyanocobalamin 1,000 mcg 08/01/24 08:00
Cyanocobalamin 1,000 Mcg Tablet PO 08/29/24 07:59
DAILY LINDA
Famotidine 20 mg 07/30/24 20:00 07/31/24 08:14
Famotidine 20 Mg/2 Ml Vial IV 08/27/24 19:59 20 mg
Q12 LINDA Administration
Folic Acid 1 mg 07/31/24 10:00 07/31/24 09:26
Folic Acid 1 Mg Tablet PO 08/28/24 09:59 1 mg
DAILY LINDA Administration
Hydromorphone HCl 0.25 mg 07/30/24 19:58 07/31/24 08:14
Hydromorphone 0.25 Mg/0.5 Ml Syringe IV 08/13/24 19:57 0.25 mg
Q3HPRN PRN Administration
severe pain
Norepinephrine Bitartrate 4 mg in 250 mls @ 0 mls/hr 07/30/24 17:45 07/30/24 17:48
Levophed IV 250 mls
PER PROTOCOL LINDA Administration
Protocol
Per Protocol
Lactated Ringer's 1,000 mls @ 120 mls/hr 07/30/24 18:00 07/31/24 03:11
Lr IV 1,000 mls
.Q8H20M LINDA Administration
Piperacillin Sod/Tazobactam Sod 4.5 gram in 100 mls @ 200 mls/hr 07/30/24 21:00 07/31/24 09:11
Zosyn IV 100 mls
Q6H LINDA Administration
Vancomycin HCl 1,500 mg/ 530 mls @ 353.333 mls/hr 07/31/24 06:00 07/31/24 06:12
Sodium Chloride IV 530 mls
Q12H LINDA Administration
Oxycodone HCl 5 mg 07/30/24 19:58
Oxycodone 5 Mg Regular Release Tablet PO 08/13/24 19:57
Q4HPRN PRN
moderate pain
Sodium Chloride 0 flush 07/30/24 18:00 07/31/24 08:15
Sodium Chloride 0.9% (Flush) Syringe IV 08/27/24 17:59 1 flush
PER PROTOCOL LINDA Administration
Trimethobenzamide HCl 200 mg 07/30/24 23:13
Trimethobenzamide 200 Mg/2 Ml Vial IM 08/27/24 23:12
Q6HPRN PRN
Nausea and vomiting
Review of Systems
-
All Other Systems: Not reviewed unless documented
Physical Exam
-
General: No Apparent Distress, Conversant and Appears Chronically Ill
HEENT: Moist Mucous Membranes (Dry cracked lips) and Other (Hair loss noted)
Neurology: Non Focal, No Lateralizing Symptoms and No Word Finding Difficulty
Psych: Calm and Intact Judgement/Insight
Labs
Lab Results
WBC 3.1 10^3/uL (4.8-10.8) L 07/31/24 06:22
RBC 2.05 10^6/uL (4.20-5.40) L 07/31/24 06:22
Hgb 5.4 g/dL (12.0-16.0) L* 07/31/24 06:22
Hct 17.9 % (37.0-47.0) L* 07/31/24 06:22
MCV 87.3 fL (81.0-99.0) 07/31/24 06:22
MCH 26.3 pg (27.0-31.0) L 07/31/24 06:22
MCHC 30.2 g/dL (33.0-37.0) L 07/31/24 06:22
RDW 18.5 % (11.5-14.5) H 07/31/24 06:22
Plt Count 227 10^3/uL (130-400) 07/31/24 06:22
MPV 9.3 fL (7.4-10.4) 07/31/24 06:22
Abs Immat Gran (auto) 0.1 10^3/uL (0-0.05) H 07/30/24 13:38
Absolute Neuts (auto) 6.5 10^3/uL (1.4-6.5) 07/30/24 13:38
Absolute Lymphs (auto) 2.1 10^3/uL (1.2-3.4) 07/30/24 13:38
Absolute Monos (auto) 0.4 10^3/uL (0.1-0.6) 07/30/24 13:38
Absolute Eos (auto) 0.0 10^3/uL (0-0.7) 07/30/24 13:38
Absolute Basos (auto) 0.0 10^3/uL (0-0.2) 07/30/24 13:38
Immature Gran % 0.7 % (0-0.5) H 07/30/24 13:38
Neutrophils % 71.3 % (42.2-75.2) 07/30/24 13:38
Lymphocytes % 23.5 % (20.5-51.1) 07/30/24 13:38
Monocytes % 4.1 % (1.7-9.3) 07/30/24 13:38
Eosinophils % 0.4 % (0-6) 07/30/24 13:38
Basophils % 0.0 % (0-2) 07/30/24 13:38
Creatinine 0.4 mg/dL (0.6-1.0) L 07/31/24 06:22
Vital Signs
Vital Signs
Temp Pulse Resp BP Pulse Ox
98.1 F 106 28 111/74 99
07/31/24 10:04 07/31/24 11:00 07/31/24 11:00 07/31/24 10:06 07/31/24 11:00
--- NOTE | 2024-07-31 12:32 | W.PN.GS2 ---
Addendum entered and electronically signed by Avni Yancey MD 07/31/24 12:54:
I saw and examined the patient.
The Ammunition Comp[employer] Inspector's note was reviewed and I agree with the note.
Comment: Pt feeling better today than yesterday. Discussed the CT results which do not indicate a need for surgical intervention at this time. Rec local wound care, nutrition, offloading, abx. Pls call with ?s
Original Note:
Today's Communication / Plan
-
no surgical intervention; continue local wound care
Assessment / Plan
-
18 yo female presenting in septic shock from cellulitis to the perineum/buttocks. N/V on presentation which is resolved with treatment of acidosis.
Hematology following for anemia
Metabolic derangements being corrected in ICU
ID following on ABX
CT imaging consistent with cellulitis changes without drainable abscess present or acute intraabdominal pathology.
--No surgical intervention needed at this time, continue local wound care
--Started on clears this am, ok to advance as tolerated from surgical standpoint
--Wound care consulted to follow
--Continue abx as per ID for management of cellulitis
Surgery service to follow peripherally, please call with question's concerns
Subjective Data
-
Date of Service: July 31, 2024
Patient seen and examined at bedside with Dr. Yancey. Feeling a little better today. Notes she was afraid to come to the hospital, but is glad that she did. Denies nausea/vomiting.
Utilized language line it operations specialist #[id number]
Objective Data
-
Intake and Output
07/30/24 07/31/24 08/01/24
06:59 06:59 06:59
Intake Total 2009 1085 / 1085
Output Total 500 / 500 375 / 375
Balance 1510 / 1760 710 / 710
Intake:
Oral fluids 480 / 480 125 / 125
IV fluids (Total) 1079 60 60
Levophed 0 / 0
Lr 1,000 ml @ 120 mls/hr IV . 1079 60
Q8H20M LINDA Rx#:[id number]
IV piggybacks 450 / 700 650 / 650
Blood Product Amount Infused ( 250 / 250
mL)
Packed Rbc Leukoreduced Unit 250 / 250
[id number]
Output:
Urine, Huffman 375 / 375
Urine, Voided 500 / 500
Other:
Number of approximated MODERATE 1
amounts of urine
Vital Signs
Temp Pulse Resp BP Pulse Ox
98.1 F 109 23 113/70 99
07/31/24 12:00 07/31/24 12:00 07/31/24 12:00 07/31/24 12:00 07/31/24 12:00
Lab Results
07/31/24 06:22
07/31/24 06:22
Calcium 7.1 mg/dl (8.4-10.2) L 07/31/24 06:22
Phosphorus 3.4 mg/dl (2.5-4.5) 07/31/24 04:42
Magnesium 1.5 mg/dl (1.6-2.3) L 07/31/24 06:22
Total Bilirubin 2.3 mg/dl (0.2-1.3) H 07/31/24 04:42
Direct Bilirubin 1.7 mg/dl (0.0-0.4) H 07/31/24 04:42
AST 50 U/L (14-36) H 07/31/24 04:42
ALT 11 U/L (0-35) 07/31/24 04:42
Alkaline Phosphatase 134 U/L (38-126) H 07/31/24 04:42
Total Protein 5.0 g/dl (6.3-8.2) L 07/31/24 04:42
Albumin 2.0 g/dl (3.5-5.0) L 07/31/24 04:42
Physical Exam
-
NAD
ABD soft, nt, nd
Wound with ulcerations to the right buttock and significant erythema/excoriations to the BL buttocks, perineum to upper thighs
Huffman with clear, yellow urine
--- NOTE | 2024-07-31 12:42 | PTCARENOTE ---
patien reassessed. multiple MD in to evaluate. first unit PRBC completed without signs reaction. second unit initiated. awaiting ultrasound to evaluate right upper arm prior to VAT team insertion of midline. myles draining mekhi urine. call wheeler in
hand.
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
[2024-07-31] MEDS: ZOFRAN 4 MG IV (13:51)
--- NOTE | 2024-07-31 14:00 | PTCARENOTE ---
Addendum entered by Adri Marshall RN 07/31/24 14:31:
unit PRBC completed without signs transfusion reaction. medicated with dilaudid for pain.
Original Note:
medicated with zofran per prn order for c/o slight nausea. transfusing second unit PRBC without signs reaction
[2024-07-31 15:16] LABS: Hematocrit 27.3 % (37.0-47.0); Hemoglobin 8.9 g/dL (12.0-16.0)
--- NOTE | 2024-07-31 16:47 | PTCARENOTE ---
VAT RN placed midline right arm. patient tearful post procedure. support given. face timing with her mother. urine mekhi orange
--- NOTE | 2024-07-31 20:00 | PTCARENOTE ---
Received patient AAOx3, following commands. Normal sinus/sinus tach 80s-100s, BP stable. Normothermic. +2 pitting edema generalized anasarca, bruising throughout b/l upper extremities. 98% on room air, lung sounds diminished. Abdomen round, obese,
hypoactive bowel sounds. BM with diarrhea. Huffman in place draining yellow/mekhi urine. Stage 2 pressure injuries throughout buttocks/perineum, dressings changed, CDI. PIVs patent, WNL. Midline patent. Call wheeler within reach.
--- NOTE | 2024-07-31 20:00 | PTCARENOTE ---
Cannot verify vitals prior to 1900, previous shift.
[2024-07-31] MEDS: NSS (PRESERVATIVE FREE) 8 ML IV (21:02)
[2024-07-31 21:46] LABS: Blood Urea Nitrogen 4 mg/dl (7-17); Calcium 7.3 mg/dl (8.4-10.2); Carbon Dioxide 19 mmol/L (22-30); Chloride 110 mmol/L (98-107); Estimated Creatinine Clearance > 125 ml/min; Glucose 86 mg/dl (70-99); Magnesium 2.2 mg/dl (1.6-2.3); Potassium 3.6 mmol/L (3.5-5.1); Sodium 134 mmol/L (135-145); eGFR > 60.00
[2024-08-01] VITALS (8 sets, daily range): BP systolic 106–127; BP diastolic 67–83; BMI 32.8
--- NOTE | 2024-08-01 01:15 | PTCARENOTE ---
Patient assessment unchanged from previous, call wheeler within reach.
[2024-08-01] MEDS: DILAUDID 0.25 MG IV ×3 (01:57→13:27)
[2024-08-01] MEDS: ZOSYN 100 IV ×4 (01:57→20:14)
--- NOTE | 2024-08-01 04:41 | PTCARENOTE ---
Patient assessment unchanged from previous, call wheeler within reach.
[2024-08-01] MEDS: VANCOCIN 530 MG IV (05:28)
[2024-08-01 05:36] LABS: Venous Blood Gas O2 Sat % 99.7 %; Venous Blood Gas pCO2 29 mmHg (35-48); Venous Blood Gas pO2 144 mmHg (30-50)
[2024-08-01 06:16] LABS: ALT (SGPT) 13 U/L (0-35); AST (SGOT) 97 U/L (14-36); Alkaline Phosphatase 180 U/L (38-126); Blood Urea Nitrogen 4 mg/dl (7-17); Calcium 7.4 mg/dl (8.4-10.2); Carbon Dioxide 18 mmol/L (22-30); Chloride 110 mmol/L (98-107); Estimated Creatinine Clearance > 125 ml/min; Glucose 83 mg/dl (70-99); Magnesium 2.2 mg/dl (1.6-2.3); Phosphorus 3.6 mg/dl (2.5-4.5); Potassium 3.3 mmol/L (3.5-5.1); Sodium 136 mmol/L (135-145); Total Bilirubin 1.9 mg/dl (0.2-1.3); eGFR > 60.00
[2024-08-01 06:24] LABS: Hematocrit 26.5 % (37.0-47.0); Hemoglobin 8.3 g/dL (12.0-16.0); Mean Corp Hgb Conc. 31.3 g/dL (33.0-37.0); Mean Corpuscular Hgb 27.5 pg (27.0-31.0); Mean Corpuscular Volume 87.7 fL (81.0-99.0); Mean Platelet Volume 8.9 fL (7.4-10.4); Platelet Count 241 10^3/uL (130-400); Red Blood Cell Count 3.02 10^6/uL (4.20-5.40); Red Cell Dist. Width 17.2 % (11.5-14.5); White Blood Cell Count 3.2 10^3/uL (4.8-10.8)
[2024-08-01 06:33] LABS: Vitamin D, 25-OH*** < 12.8 ng/mL (30-80)
[2024-08-01] MEDS: ROXICODONE 5 MG PO ×2 (08:06→15:29)
[2024-08-01] MEDS: NSS (PRESERVATIVE FREE) 8 ML IV (08:06)
[2024-08-01] MEDS: FOLVITE 1 MG PO (08:06)
[2024-08-01] MEDS: PEPCID 20 MG IV (08:06)
[2024-08-01] MEDS: VITAMIN B-12 1000 MCG PO (08:06)
--- NOTE | 2024-08-01 08:31 | W.PN.INTV ---
Today's Communication / Plan
Recommendations
Keep MAP >65
Pain control
Antibiotics
Follow-up blood cultures (NGTD)
Transfuse blood products to maintain Hb >7 with serial H/H
Surgery consult with recommendation appreciated
Wound care
Patient is stable for downgrade out of ICU to telemetry. No additional recommendations at this time. Website Admin/Pulmonary service will now sign off. Please reconsult if there are any additional questions/concerns, or if patient's respiratory
status deteriorates.
Assessment
-
Assessment: 18-year-old female with a past medical history of physical deconditioning due to recent knee injury who presents with worsening pain on a right buttocks wound with chills and fast heart rate. Patient is Italian-speaking and the Italian
structural design engineer was used (structural design engineer #: [id number]). She says that she fell recently while at work at [employer] and hurt her knee. She has been apparently bedridden after this injury for the last 2 weeks or so with reduced mobility over last 1.5 months.
She developed a pressure injury on her right buttocks which has been increasingly becoming more painful and inflamed. It has been affecting her ability to walk due to the pain. She is also been having abdominal pain with vomiting + diarrhea over
the last week and eating less. In the ER she was afebrile to 99.5 �F, tachycardic to 152 bpm, breathing at 35-40 breaths/min, BP 101/79 and saturating 100% on room air. Labs showed WBC was WNL at 9.1, Hb 8, serum bicarbonate level 16 with pH 7.28,
pCO2 26, glucose 115, lactate 6.1, albumin level 2.6, UDS positive for opiates and TSH WNL at 3.99. Blood cultures were collected. CT chest/abdomen/pelvis was obtained showing trace bilateral pleural effusions (R >L) with severe fatty infiltration
and hepatomegaly, with a nonocclusive splenic vein thrombus with no focal collection or abscess seen in the right pelvic/buttocks region. In the ER she was given clindamycin, IV vancomycin, Zosyn, dilaudid, and NS 0.9% x 2 L. Due to hypotension
with SBP's in the 80s, Levophed was ordered and she was transferred to the ICU for further care. Website Admin services consulted for additional management/recommendations.
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
Impression:
#Shock: Multiple variables including hypovolemia from reduced PO intake + sepsis from right buttocks wound with extensive cellulitis - shock state now resolved
#Lactic acidosis with hypotension - lactic acidosis now resolved
#Right buttocks cellulitis with multiple skin tears which are slowly oozing blood
#Tachycardic likely due to SIRS criteria from right buttocks infection
#Transaminitis with hyperbilirubinemia - improving
#Anemia (unknown baseline) - worse (?dilutional)
#Metabolic acidosis with increased anion gap due to lactic acidosis - acidosis improving
#Hypoalbuminemia
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
#Hepatomegaly with severe fatty infiltration likely due to obesity
#Small bilateral pleural effusions (too small to sample)
#Obesity (BMI: 35.4)
Plan:
- Pt now off levophed; keep MAP>65
- Continue with broad-spectrum antibiotics (Zosyn s/p IV vanco) with surgery consult and wound care consult
- Abx as per ID
- Surgery saw patient and there is no acute need for surgical intervention at this time
- Follow up blood Cx X 2 (collected 07/30/2024 - NGTD)
- Continue to trend serum HCO3 level; her lactate how normalized, and her ABG showed a pH of 7.4 this AM (08/01). No need for bicarbonate infusion at this time; continue to monitor
- trend LFTs; check abdominal ultrasound with dopplers given that her LFTs are elevated with elevated T. bili and abdominal pain; check with dopplers given her splenic vein thrombus seen on CT
- Abdominal ultrasound shows diffusely fatty liver with hepatomegaly with no cholelithiasis, gallbladder wall thickening or biliary ductal dilatation; there was normal directional blood flow in the hepatic and portal veins and unable to confirm
splenic vein thrombosis
- Maintain SpO2 >90-94% with supplemental oxygen as needed
- Replete electrolytes with K>4, Mg>2
- Maintain euglycemia with goal BG 140-180
- Trend H/H and transfuse if needed to keep Hb>7g/dL; keep plt>50k given the slow ooze of blood seen on right buttocks wound
- Getting 2 units PRBC this AM - c/t trend H/H s/p transfusion to assess for appropriate rise
- prn nebulized bronchodilators - not currently bronchospastic
- Incentive spirometer encouraged 10x per hour for at least 4 hrs a day
- DVT ppx: SCDs for now given her acute anemia this AM --> once H/H is stable and her right buttocks is not bleeding then would consider starting systemic anticoagulation given suspected splenic vein thrombosis
Patient is stable for downgrade out of ICU to telemetry. No additional recommendations at this time. Website Admin/Pulmonary service will now sign off. Thank you for allowing us to be involved in the care of this patient. Please reconsult if there
are any additional questions/concerns, or if patient's respiratory status deteriorates.
Data:
CT chest/abdomen/pelvis with IV contrast 07/30/2024:
Trace bilateral pleural effusion, right greater than left. Bibasilar atelectasis.
Hepatomegaly. Severe fatty infiltration.
Nonocclusive splenic vein thrombus. The portal vein is patent.
Mild nonspecific soft tissue stranding within the ischiorectal fossa fat, bilaterally, right slightly greater than left. However, no focal collection or abscess.
Total time spent today was 38 minutes for this encounter. Time includes reviewing laboratory test/imaging results, reviewing pertinent medical records, obtaining and reviewing medical history, performing an appropriate exam, ordering medications,
tests and procedures. Time also includes documentation of this encounter, coordinating patient care and communicating with other healthcare professionals. Total time does not include separately billed tests performed on this date of service.
Subjective Dataa
Subjective Data
Date of Service:
Date of Service: August 01, 2024
Chief Complaint: Website Admin Follow Up
Subjective:
Patient seen and evaluated today at bedside. Pain in her belly is now gone. She feels much better today. Still having some pain on the right side of her leg. Afebrile from overnight. Denies chest pain, CHATTERJEE, nausea, fevers or chills.
Review of Systems
General: Other (Negative unless mentioned above)
Objective Data
Data Reviewed
Vital Signs / I&O / Oxygen:
Vital Signs
Temp Pulse Resp BP Pulse Ox
98.7 F 107 30 119/81 98
08/01/24 07:32 08/01/24 09:00 08/01/24 09:00 08/01/24 08:00 08/01/24 09:00
Intake and Output
07/31/24 08/01/24 08/02/24
06:59 06:59 06:59
Intake Total 2009 / 0 3165 / 3165
Output Total 500 / 500 1330 / 1330
Balance 1510 / 1760 1835 / 1835
SaO2 98
Physical Exam
General: Respiratory Distress (negative), Pain (right buttocks region), Chills (negative) and Sweats (negative)
HEENT: Normocephalic and Anicteric
Cardiovascular: S1-S2, Rub (negative) and Peripheral Edema (negative)
Respiratory: Wheeze (negative), Crackles (Bibasilar (L >R)), Rhonchi (negative), Non-Labored Respirations and Stridor (negative)
GI: Soft, Distended (Abdominal obesity), Non Tender and Normal Bowel Sounds
Neurology: Awake, Alert and Tremors (negative)
Skin: Warm, Dry, Cyanosis (negative), Jaundice (negative) and Other (Large area of erythema with multiple skin tears seen on her right buttock; erythema spreads into the perineum; no purulence seen; area is painful to palpation)
Labs/Micro/Reports
Lab Data
08/01/24 05:29
08/01/24 05:29
Microbiology
07/31/24 04:22 Nose MRSA Screen - Final
No Methicillin Resistant Staphylococcus aureus isolated.
07/30/24 15:56 Blood/Venous Blood Culture - Preliminary
No Growth in 24 hours- Final report to follow
07/30/24 15:56 Blood/Venous Blood Culture - Preliminary
No Growth in 24 hours- Final report to follow
[2024-08-01] MEDS: KCL 40 MEQ PO (09:08)
[2024-08-01] MEDS: SODIUM BICARBONATE 650 MG PO ×3 (09:08→21:10)
--- NOTE | 2024-08-01 09:22 | PTCARENOTE ---
report received, assessments per work list. patient anxious. legs with increased discomfort, left greater than right. c/o tingling bilateral lower extremities. roxicodone per prn order. monitor sinus tachycardia. diminished breath sounds. crackles
bases. + 2 edema. abdomen soft, hyperactive bowel sounds. assisted to bedpan, had large liquid yellow stool, complete buttock sacral and perineal wound care completed. wounds bleeding with care. foely draining clear yellow urine.hospitalist at
bedside, orders received. care, assessments and plan of care reviewed with patient utilizing transcriber services
--- NOTE | 2024-08-01 09:30 | PHA.VAN.FU ---
Vancomycin Assessment / Plan
- Assessment
Renal Function: Stable
WBC's are: Trending Down
In the past 24 hrs, patient has been: Afebrile
Concomitant Antimicrobials: Piperacillin-tazobactam
- Dosing Plan
Continue: Vanc 1500mg IV q12H
- Monitoring Plan
Peak Level: 08/01 at 2100
Trough Level: 08/02 at 0530
- Follow Up
Pharmacy will continue to follow.
Vancomycin Follow UP
- -
Patient Age: 18
Patient Sex: Female
Vancomycin Day #: 3
Indication: Skin And Soft Tissue
Requesting Provider: Nat/Colin
Pertinent Antimicrobial Allergies:
NKDA
Height / Weight:
Height 5 ft 4 in
Actual Weight 86.5 kg
- Vital Signs / Lab Results
Temp Pulse Resp BP Pulse Ox
98.7 F 107 30 119/81 98
08/01/24 07:32 08/01/24 09:00 08/01/24 09:00 08/01/24 08:00 08/01/24 09:00
Lab Results - Hematology
07/30/24 07/31/24 07/31/24
13:38 04:42 06:22
WBC 9.1 3.5 L 3.1 L
08/01/24
05:29
WBC 3.2 L
Lab Results - Chemistry
07/30/24 07/31/24 07/31/24
13:38 04:42 06:22
BUN 9 6 L 6 L
Creatinine 0.3 L 0.4 L 0.4 L
Estimated Creat Clear > 125 > 125
Albumin 2.6 L 2.0 L
07/31/24 08/01/24
21:12 05:29
BUN 4 L 4 L
Creatinine 0.3 L 0.4 L
Estimated Creat Clear > 125 > 125
Albumin 2.0 L
07/30/24 07/30/24 07/30/24
13:38 17:15 21:30
Lactic Acid 6.1 H* 0.8 Cancelled
Microbiology Results
07/30/24 15:56 Blood Culture - Preliminary
Blood/Venous No Growth in 24 hours- Final report to follow
07/30/24 15:56 Blood Culture - Preliminary
Blood/Venous No Growth in 24 hours- Final report to follow
[2024-08-01] MEDS: DRISDOL (VITAMIN D2) 50000 UNITS PO (10:09)
--- NOTE | 2024-08-01 10:14 | W.PN.ID1 ---
Date of Service
Date of Service: August 01, 2024
Today's Communication
Continue Zosyn.
Assessment / Plan
Bilateral buttock/gluteal cellulitis with superficial tissue ulcerations
- Given history of immobility, suspect local reaction to incontinence
Marked anemia
SIRS (hypotension, tachycardia, leukopenia)
- improved
Fatty liver
Elevated bilirubin
Obesity
Recommendations:
Continue with empiric Zosyn (day #2). Discontinue further Vanco as MRSA screen is negative.
Monitor white count and temperature curve.
Continue with supportive measures. Local care to the superficial buttock wounds.
Follow pending cultures.
Further recommendations as additional data is returned.
����������������������������������������������������������
Chief Complaint
-: Cellulitis
Subjective / Review of Systems
Review of Systems: No Fever and No Chills
Vital Signs / Physical Exam
Vital Signs
Vital Signs
Temp Pulse Resp BP Pulse Ox
98.7 F 107 30 119/81 98
08/01/24 07:32 08/01/24 09:00 08/01/24 09:00 08/01/24 08:00 08/01/24 09:00
Physical Exam
Constitutional: Comfortable, Chronically Ill, Non-toxic and Obese
Head: Normocephalic
Eyes: No Conjunctival Hemorrhage and Sclera Anicteric
Cardiovascular: S1/S2; Negative S3/S4
Pulmonary: Non Labored
Gastrointestinal: Soft, Non Tender and Non Distended
Neurological: Awake and Alert
Psychological: Calm
Objective Data
Lab Data
Lab Results
08/01/24 05:29
08/01/24 05:29
PT 15.8 Sec (11.4-14.6) H 07/31/24 07:59
INR 1.23 07/31/24 07:59
APTT 40.5 Sec (23.4-35.0) H 07/31/24 07:59
Estimated Creat Clear > 125 ml/min 08/01/24 05:29
Lactic Acid Cancelled 07/30/24 21:30
Total Bilirubin 1.9 mg/dl (0.2-1.3) H 08/01/24 05:29
AST 97 U/L (14-36) H 08/01/24 05:29
ALT 13 U/L (0-35) 08/01/24 05:29
Alkaline Phosphatase 180 U/L (38-126) H 08/01/24 05:29
Most recent labs reviewed.
Micro Results:
07/31/24 04:22 MRSA Screen - Final
Nose No Methicillin Resistant Staphylococcus aureus isolated.
07/30/24 15:56 Blood Culture - Preliminary
Blood/Venous No Growth in 24 hours- Final report to follow
07/30/24 15:56 Blood Culture - Preliminary
Blood/Venous No Growth in 24 hours- Final report to follow
Imaging:
07/30/2024 CT chest / abdomen / pelvis with IV contrast: Hepatomegaly with severe fatty infiltration. No retroperitoneal mass or adenopathy. Nonocclusive thrombus demonstrated throughout most of the splenic vein. Portal vein is patent. No
abdominal free air or ascites. No focal collection or abscess noted. Mild nonspecific soft tissue stranding within the ischial rectal fossa fat bilaterally, right slightly greater than left. No focal collection or abscess seen, although on direct
visualization, attenuation noted in the right buttock/gluteal area on image 105.
(Photo taken 07/31/2024)
--- NOTE | 2024-08-01 10:49 | W.PN.HOSP.TC ---
Today's Communication/Plan
-
Check LE xray
check venous doppler
trend cbc
start vit D supplementation
Tx out of ICU
Assessment / Plan
Assessment / Plan
#Septic Shock with Significant Lactic Acidosis
#Bilateral gluteal/ Buttock Cellulitis with skin ulceration
Lactic acidosis resolved with IV fluid
Patient is off Levophed . Monitor blood pressure.
CT abdomen pelvis was negative for deep tissue infection or abscess
Continue with broad-spectrum antibiotic with zosyn. MRSA negative and vancomycin stopped.
Follow-up on the blood culture data
Surgery signed off. Advance diet.
Wound consult. Off loading.
ID following
#Normocytic anemia which is multifactorial secondary to malnutrition, inflammatory, folate and B12 deficiency
Patient has been started on folate and vitamin B12
No margarito hematuria noted
Check for FOBT would be difficult as patient with perianal and buttocks wound
No margarito luminal bleeding was noted
Hemoglobin of 5.4 s/p 2u of PRBC. Hgb at 8.
Trend H&H and transfuse for hemoglobin less than 7.
Doubt any hemolysis. Reticulocyte count at 2 Expected to be higher.
Iron stores are appropriate. LDH normal. Haptoglobin is pending.
Appreciate oncology assistance
Hemoglobin was 8 on admission. ?chronic anemia
Appreciate oncology recs.
#Left knee pain/brusing from fall
#B/L LE swelling L>R
-Check B/L LE xray as complaining of generalized pain
-Check venous doppler
-Fall prior to arrival-Check B/L LE xray.
#Leukopenia
? Due to sepsis
Trend CBC for now
#Nonocclusive splenic vein thrombosis
On arterial Doppler ultrasound splenic vein thrombosis. Confirmed
Oncology correspondence noted and recommended against anticoagulation
#Hypokalemia/hypomagnesemia
Replete and monitor
Check phos level-wnl
#HypoViT D
-started supplementation
#Hair loss could be due to inflammatory condition
Will need to see dermatology as outpatient
Vitamin B12 and folic supplementation was started
TSH is normal
HIV was checked and pending
#Mild metabolic acidosis
-started po sodium bicarbonate
#Obesity wit hepatomegaly
Will need to f/u with GI as outpatient
Once improvement in mobility recommend wt loss.
DVT proph: SCDs if pt can tolerate it
Code Status: Full Code
PT ordered
Anticipated Discharge: > 48 hours
Subjective/Interval History
-
Date of Service: August 01, 2024
Patient on video call with mother.
states of numbing and tingling in LE started 8 days ago while bedbound
states of body pain diffuse
states of pain at IV site
Denies nausea. having loose stools
mild oozing from wound per RN
used Translational line for interview
Objective Data
-
Labs:
Laboratory Results
08/01/24
05:29
WBC 3.2 L
Hgb 8.3 L
Hct 26.5 L
Plt Count 241
Sodium 136
Potassium 3.3 L
Chloride 110 H
Carbon Dioxide 18 L
BUN 4 L
Creatinine 0.4 L
Glucose 83
Calcium 7.4 L
Total Bilirubin 1.9 H
AST 97 H
ALT 13
Alkaline Phosphatase 180 H
Vital Signs:
Vital Signs
Temp Pulse Resp BP Pulse Ox
98.7 F 107 30 119/81 98
08/01/24 07:32 08/01/24 09:00 08/01/24 09:00 08/01/24 08:00 08/01/24 09:00
I&O
07/31/24 08/01/24 08/02/24
06:59 06:59 06:59
Intake Total 2009 3165 / 3165 580 / 580
Output Total 500 / 500 1330 / 1330 550 / 550
Balance 1510 / 1760 1835 / 1835 30 / 30
Physical Exam
-
General: Well Developed, Well Nourished, No Apparent Distress and Obese
HEENT: Normocephalic, Atraumatic, Moist Mucous Membranes and Other (hair loss/hair wig noted )
Respiratory: Clear to Auscultation
Cardiac: Regular Rhythm and S1/S2; Negative Murmur, Rub or Gallop
GI: Soft, Nontender, Nondistended and Normal Bowel Sounds; Negative Organomegaly
Rectal: Deferred by Provider
Musculoskeletal: No Clubbing, No Cyanosis, Edema, Right Lower Extrem (non pitting ) and Edema, Left Lower Extrem (non pitting )
Skin: Rash (Buttocks ) and Other (bruising noted on Left knee and Right arm)
Neuro: Awake, Alert, Oriented, AO x 3, No Motor Deficits, Nonfocal/Grossly Intact and No Sensory Deficits; Negative Slurred Speech or Facial Droop
Psych: Calm
Data Reviewed
-
Total Time Spent with Patient (in minutes): 56
[2024-08-01 11:21] LABS: % Basophils 0.3 % (0-2); % Eosinophils 2.5 % (0-6); % Immature Granulocytes 0.9 % (0-0.5); % Lymphocytes 25.2 % (20.5-51.1); % Monocytes 4.4 % (1.7-9.3); % Neutrophils 66.7 % (42.2-75.2); Absolute Eosinophils 0.1 10^3/uL (0-0.7); Absolute Lymphocytes 0.8 10^3/uL (1.2-3.4); Absolute Monocytes 0.1 10^3/uL (0.1-0.6); Absolute Neutrophils 2.1 10^3/uL (1.4-6.5); Nucleated Red Blood Cells % 0 %
--- NOTE | 2024-08-01 13:53 | PTCARENOTE ---
patient xray completed. unable to tolerate ultrasound in department due to pain. returned to unit. medicated with dilaudid, ultrasound notified to come to unit to complete study
--- NOTE | 2024-08-01 20:15 | PTCARENOTE ---
Received patient AAOx3, following commands. Pain when cleaned but patient reports being able to move extremities more and feels 'very happy'. Normal sinus/sinus tach 90s-100s, BP stable, normothermic. +2/3 generalized anasarca, palpable radial and
pedal pulses b/l. 98% on room air, lung sounds clear. Abdomen soft, round, obese, hypoactive BS. Poor appetite. Liquid bowel movement, CHG bath done, sheets changed, myles care done. Myles in place draining yellow urine. PIV and midline patent, WNL.
Call wheeler within reach.
[2024-08-02] VITALS (10 sets, daily range): BP systolic 101–134; BP diastolic 73–94; PULSE 90; O2SAT 99; BMI 32.3
[2024-08-02 02:40] LABS: Haptoglobin 179 mg/dL (30-200)
[2024-08-02] MEDS: ZOSYN 100 IV ×4 (03:12→21:50)
[2024-08-02] MEDS: PEPCID 20 MG PO (08:19)
[2024-08-02] MEDS: VITAMIN B-12 1000 MCG PO (08:19)
[2024-08-02] MEDS: SODIUM BICARBONATE 650 MG PO ×3 (08:19→21:51)
[2024-08-02] MEDS: FOLVITE 1 MG PO (08:19)
[2024-08-02 08:27] LABS: % Basophils 0.4 % (0-2); % Eosinophils 2.5 % (0-6); % Immature Granulocytes 1.1 % (0-0.5); % Lymphocytes 32.4 % (20.5-51.1); % Monocytes 11.5 % (1.7-9.3); % Neutrophils 52.1 % (42.2-75.2); Absolute Eosinophils 0.1 10^3/uL (0-0.7); Absolute Lymphocytes 0.9 10^3/uL (1.2-3.4); Absolute Monocytes 0.3 10^3/uL (0.1-0.6); Absolute Neutrophils 1.5 10^3/uL (1.4-6.5); Hematocrit 27.4 % (37.0-47.0); Hemoglobin 8.4 g/dL (12.0-16.0); Mean Corp Hgb Conc. 30.7 g/dL (33.0-37.0); Mean Corpuscular Hgb 27.6 pg (27.0-31.0); Mean Corpuscular Volume 90.1 fL (81.0-99.0); Mean Platelet Volume 8.6 fL (7.4-10.4); Nucleated Red Blood Cells % 0 %; Platelet Count 248 10^3/uL (130-400); Red Blood Cell Count 3.04 10^6/uL (4.20-5.40); Red Cell Dist. Width 18.4 % (11.5-14.5); White Blood Cell Count 2.8 10^3/uL (4.8-10.8)
[2024-08-02 08:46] LABS: ALT (SGPT) 15 U/L (0-35); AST (SGOT) 116 U/L (14-36); Albumin 2.2 g/dl (3.5-5.0); Alkaline Phosphatase 175 U/L (38-126); Blood Urea Nitrogen < 2 mg/dl (7-17); Calcium 7.8 mg/dl (8.4-10.2); Carbon Dioxide 18 mmol/L (22-30); Chloride 114 mmol/L (98-107); Estimated Creatinine Clearance > 125 ml/min; Glucose 75 mg/dl (70-99); Potassium 3.5 mmol/L (3.5-5.1); Sodium 141 mmol/L (135-145); Total Bilirubin 1.6 mg/dl (0.2-1.3); Total Protein 5.2 g/dl (6.3-8.2); eGFR > 60.00
[2024-08-02] MEDS: DILAUDID 0.25 MG IV (10:19)
--- NOTE | 2024-08-02 11:40 | WOUNDNOTE ---
SACRAL/INNER BUTTOCKS
--- NOTE | 2024-08-02 11:41 | WOUNDNOTE ---
WOC RN note: Patient admitted with severe septic lactic acidosis. Patient lives with friends and has been recently bedbound suspect d/t recent fall at work and hurt her knee.
See H&P for complete history.
PMH: obesity.
Wound Location and type/assessment: Patient admitted with: Multiple scattered deep dermal stage 2 pressure injuries/moisture related injuries bilateral buttocks (R>L) and linear stage 2 vs MASD coccyx crease ulcer. Bruises posterior legs.
Appetite: good.
Pressure redistribution devices in place: Centrella Max air bed. Patient turns with assistance.
Plan: Buttocks and coccyx dressings changed. Patient turned with help from WOC RN Jl Davis and REPAIR COIL WINDER Lukas. Heels off bed with pillows. Bariatric air chair cushion given. PT/OT in to see patient.
Will confirm orders with Dr. Grijalva and discussed with OTILIA Gaytan.
Care plan to be updated and will follow as needed.
Note to case management of equipment requested for discharge: Air mattress if mobility does not improve.
Recommend follow up at wound care center upon discharge.
[2024-08-02 12:13] LABS: HIV Combo Negative (Negative)
--- NOTE | 2024-08-02 12:53 | W.PN.ID1 ---
Date of Service
Date of Service: August 02, 2024
Today's Communication
Continue Zosyn for today.
Assessment / Plan
Bilateral buttock/gluteal cellulitis with superficial tissue ulcerations
- Given history of immobility, suspect local reaction to incontinence
Marked anemia
SIRS (hypotension, tachycardia, leukopenia)
- improved
Fatty liver
Elevated bilirubin
Obesity
Recommendations:
Continue with empiric Zosyn (day #4).
Monitor white count and temperature curve.
Continue with supportive measures. Local care to the superficial buttock wounds.
Follow pending cultures.
Further recommendations as additional data is returned.
����������������������������������������������������������
Chief Complaint
-: Cellulitis
Subjective / Review of Systems
Patient seen and examined. Continues with general body pain. Significant discomfort still noted and excoriated areas of buttock region.
Review of Systems: No Fever and No Chills
Vital Signs / Physical Exam
Vital Signs
Vital Signs
Temp Pulse Resp BP Pulse Ox
98.5 F 105 30 101/76 99
08/02/24 07:13 08/02/24 12:00 08/01/24 10:00 08/02/24 12:00 08/02/24 12:00
Physical Exam
Constitutional: Comfortable, Chronically Ill, Non-toxic and Obese
Head: Normocephalic
Eyes: No Conjunctival Hemorrhage and Sclera Anicteric
Cardiovascular: S1/S2; Negative S3/S4
Pulmonary: Non Labored
Gastrointestinal: Soft, Non Tender and Non Distended
Wound: Other (Buttock wounds dressed. Surrounding tissue remains erythematous, although slight improvement. Wounds appear less 'moist')
Neurological: Awake and Alert
Psychological: Calm
Objective Data
Lab Data
Lab Results
08/02/24 08:20
08/02/24 08:20
PT 15.8 Sec (11.4-14.6) H 07/31/24 07:59
INR 1.23 07/31/24 07:59
APTT 40.5 Sec (23.4-35.0) H 07/31/24 07:59
Estimated Creat Clear > 125 ml/min 08/02/24 08:20
Lactic Acid Cancelled 07/30/24 21:30
Total Bilirubin 1.6 mg/dl (0.2-1.3) H 08/02/24 08:20
AST 116 U/L (14-36) H 08/02/24 08:20
ALT 15 U/L (0-35) 08/02/24 08:20
Alkaline Phosphatase 175 U/L (38-126) H 08/02/24 08:20
Most recent labs reviewed.
Micro Results:
07/30/24 15:56 Blood Culture - Preliminary
Blood/Venous No Growth in 48 hours- Final report to follow
07/30/24 15:56 Blood Culture - Preliminary
Blood/Venous No Growth in 48 hours- Final report to follow
07/31/24 04:22 MRSA Screen - Final
Nose No Methicillin Resistant Staphylococcus aureus isolated.
Imaging:
07/30/2024 CT chest / abdomen / pelvis with IV contrast: Hepatomegaly with severe fatty infiltration. No retroperitoneal mass or adenopathy. Nonocclusive thrombus demonstrated throughout most of the splenic vein. Portal vein is patent. No
abdominal free air or ascites. No focal collection or abscess noted. Mild nonspecific soft tissue stranding within the ischial rectal fossa fat bilaterally, right slightly greater than left. No focal collection or abscess seen, although on direct
visualization, attenuation noted in the right buttock/gluteal area on image 105.
(Photo taken 07/31/2024)
--- NOTE | 2024-08-02 13:26 | W.PN.HOSP.TC ---
Today's Communication/Plan
-
Continue antibiotics for now
Continue vitamin D, folate, B12 supplementation
Increase Dilaudid to 0.5 as needed
Trend CBC
Assessment / Plan
Assessment / Plan
#Septic shock secondary to bilateral gluteal cellulitis with skin ulceration
-Status post vasopressor course with Levophed, has been hemodynamically stable since
-CT A/P was negative for deep tissue infection or abscess
-ID following, has been improving on IV Zosyn; s/p vancomycin, negative MRSA test
-Was evaluated by surgery, recommended no surgical intervention at this time
-Blood cultures pending final results, have been negative after 48 hours
-Continue IV Zosyn, trend CBC and temperature curve, follow-up cultures
-Continue with as needed analgesia
#Leukopenia
-Likely secondary to B vitamin deficiency and reactive component with sepsis
-White cell count has been in the range of 3-4
-Continue to trend CBC
#Bruising
-Patient complaining of generalized discomfort, noted to have bruising along extremities
-Question if she has some underlying coagulopathy
-On arrival PT 15.8, APTT 40.5
-Will repeat coags tomorrow, consider mixing study
#Transaminitis
-ALT levels normal, AST elevated in the 100s (>10 X ALT)
-Suspect that this may be secondary to muscle breakdown and ulcerations
-Will continue to trend LFTs, consider RUQ US
#Normocytic anemia
-Likely multifactorial secondary to malnutrition, folate and B12 deficiency; possible component of inflammatory anemia
-Status post 2 units of PRBC for initial hemoglobin 5.4; most recent hemoglobin 8.4
-Iron panel without evidence of iron deficiency; reticulocyte count 2 likely low in the context of B vitamin deficiency
-No obvious signs of bleeding, trace amounts near her skin ulcers on the buttocks
-Continue to trend daily CBC
#Nonocclusive splenic vein thrombus
-Noted on arterial Doppler ultrasound
-Evaluated by heme/onc, recommended against anticoagulation
#Vitamin D deficiency
-Was started on vitamin D supplement here
#Mild metabolic acidosis
-Likely secondary to infection, was started on oral bicarbonate previously here
-Continue to trend BMP, expect this to improve with elimination of infection
#Hair loss
-Cannot rule out underlying inflammatory condition/autoimmunity
-TSH levels were normal, no other obvious metabolic cause
-Should follow-up with manager of selection and assessment as outpatient
#Hepatomegaly
-With her obesity, suspicion high for NAFLD
-Will need to follow-up with gastroenterology as outpatient
DVT prophylaxis: SCDs
Diet: Regular
CODE STATUS: Full code
Anticipated Discharge: > 48 hours
Subjective/Interval History
-
Date of Service: August 02, 2024
Seen and examined at the bedside. No acute events reported overnight. AFVSS this morning
She does complain of generalized achiness/pain. Still has significant discomfort at the site of the ulcerations on her buttocks. Significant bruising noted along extremity
She denies acute complaints such as chest pain, dyspnea, fevers or chills, nausea/vomiting/diarrhea, abnormal bleeding, paresthesias or weakness
Objective Data
-
Labs:
Laboratory Results
08/02/24
08:20
WBC 2.8 L
Hgb 8.4 L
Hct 27.4 L
Plt Count 248
Sodium 141
Potassium 3.5
Chloride 114 H
Carbon Dioxide 18 L
BUN < 2 L
Creatinine 0.5 L
Glucose 75
Calcium 7.8 L
Total Bilirubin 1.6 H
AST 116 H
ALT 15
Alkaline Phosphatase 175 H
Vital Signs:
Vital Signs
Temp Pulse Resp BP Pulse Ox
98.5 F 105 30 101/76 99
08/02/24 07:13 08/02/24 12:00 08/01/24 10:00 08/02/24 12:00 08/02/24 12:00
I&O
08/01/24 08/02/24 08/03/24
06:59 06:59 06:59
Intake Total 3165 / 3165 1140 / 1140 480 / 480
Output Total 1330 / 1330 3005 / 3005 600 / 600
Balance 1835 / 1835 -1865 / -1865 -120 / -120
Review of Systems
-
History Source: Patient
All other systems: Reviewed and negative
Physical Exam
-
General: Well Developed, Pain, Conversant and Obese
HEENT: Normocephalic, Atraumatic, Moist Mucous Membranes, Anicteric and Other (Thinning hair)
Respiratory: Clear to Auscultation and Non Labored Respirations
Cardiac: Regular Rhythm, S1/S2 and Tachycardic; Negative Murmur, Rub or Gallop
GI: Soft, Nontender, Nondistended and Normal Bowel Sounds
Musculoskeletal: No Clubbing, No Cyanosis and No Edema
Skin: Warm, Dry, Ulcers (Bilateral buttocks, indurated, no purulence or fluctuance) and Other (Bruising along extremity); Negative Rash
Neuro: AO x 3 and Nonfocal/Grossly Intact; Negative Tremors
Psych: Calm
Data Reviewed
-
Labs: Labs Reviewed by me, Discussed with Nurse and Discussed with Patient
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
[2024-08-02] MEDS: DILAUDID 0.5 MG IV (16:57)
--- NOTE | 2024-08-02 17:08 | PTCARENOTE ---
Pt received start of shift, HR Sinus Arrhythmia. Pt AAOx4. Lungs diminished at bases, shallow breathing. Huffman catheter in place - urine clear yellow, large output. Language line in room. Pt very tender on buttocks. PRN dilaudid - see MAR. Assisted
pt in ordering food. Good appetite. Pt w/ loose BM - unable to hemetest as wounds on buttocks oozing blood into sample. Dressings changed.
On alarm review, ~0532 pt in what appears to be second degree HB type 1 with rate down to 40s. MD aware.
--- NOTE | 2024-08-02 19:45 | PTCARENOTE ---
Patient received sitting up in bed, eating dinner slowly. Denies N/V. Patient primarily speaks Croatian but does speak some Romanian. I speak some Croatian so we are able to communicate. She currently denies pain or other problems. Huffman catheter in
place, patent and draining clear yellow urine. Tolerating po intake. Respirations nonlabored. Scattered bruising noted of BUEs and BLEs. She continues to have BLE toe and foot numbness and tingling. Some right ankle tenderness. XR noted with no
fracture but some soft tissue swelling of right ankle. Right UE Midline in place. Afebrile and VSS. ST on CM. Patient is currently downgraded to Telemetry. Patient's friend is at the bedside.
[2024-08-03] VITALS (9 sets, daily range): BP systolic 111–137; BP diastolic 68–96; BMI 32.9
[2024-08-03] MEDS: ZOSYN 100 IV (03:55)
--- NOTE | 2024-08-03 05:10 | PTCARENOTE ---
Patient is a difficult stick for Lab draw. Unable to draw blood from Midline or peripheral line. Labs drawn after attempt x 4 by 2 RNs.
[2024-08-03 05:27] LABS: % Basophils 0.3 % (0-2); % Eosinophils 2.9 % (0-6); % Immature Granulocytes 0.6 % (0-0.5); % Lymphocytes 30.3 % (20.5-51.1); % Monocytes 8.3 % (1.7-9.3); % Neutrophils 57.6 % (42.2-75.2); Absolute Eosinophils 0.1 10^3/uL (0-0.7); Absolute Monocytes 0.3 10^3/uL (0.1-0.6); Absolute Neutrophils 1.8 10^3/uL (1.4-6.5); Hematocrit 25.3 % (37.0-47.0); Hemoglobin 7.8 g/dL (12.0-16.0); Mean Corp Hgb Conc. 30.8 g/dL (33.0-37.0); Mean Corpuscular Hgb 27.3 pg (27.0-31.0); Mean Corpuscular Volume 88.5 fL (81.0-99.0); Mean Platelet Volume 8.5 fL (7.4-10.4); Nucleated Red Blood Cells % 0 %; Platelet Count 281 10^3/uL (130-400); Red Blood Cell Count 2.86 10^6/uL (4.20-5.40); Red Cell Dist. Width 17.8 % (11.5-14.5); White Blood Cell Count 3.1 10^3/uL (4.8-10.8)
[2024-08-03 05:27] LABS: INR 1.11; PT 14.6 Sec (11.4-14.6)
[2024-08-03 05:28] LABS: APTT 34.3 Sec (23.4-35.0)
[2024-08-03 05:56] LABS: ALT (SGPT) 16 U/L (0-35); AST (SGOT) 107 U/L (14-36); Albumin 2.2 g/dl (3.5-5.0); Alkaline Phosphatase 176 U/L (38-126); Blood Urea Nitrogen < 2 mg/dl (7-17); Calcium 7.6 mg/dl (8.4-10.2); Carbon Dioxide 22 mmol/L (22-30); Chloride 110 mmol/L (98-107); Estimated Creatinine Clearance > 125 ml/min; Glucose 76 mg/dl (70-99); Potassium 3.1 mmol/L (3.5-5.1); Sodium 139 mmol/L (135-145); Total Bilirubin 1.7 mg/dl (0.2-1.3); Total Protein 5.3 g/dl (6.3-8.2); eGFR > 60.00
--- NOTE | 2024-08-03 07:25 | PTCARENOTE ---
Report given verbally to oncoming Amna braden RN. Questions answered.
--- NOTE | 2024-08-03 07:56 | W.PN.UPDATE ---
Update Note
Progress Note Update
Anemia likely acute on chronic, in the setting of infection/sepsis, malnutrition, blood loss from wounds.
No evidence for add'l hematologic issue.
Continue B12, folic acid, Vit D supplements. I've also added Vit C supplements, which is likely low but not reliable/easy to test for. (Vit C deficiency can cause hair loss and poor wound healing.)
Heme will sign off, pls call w/ questions.
--- NOTE | 2024-08-03 08:30 | W.PN.ID1 ---
Date of Service
Date of Service: August 03, 2024
Today's Communication
Continue antibiotics. Narrow to Unasyn.
Assessment / Plan
Bilateral buttock/gluteal cellulitis with superficial tissue ulcerations
- Given history of immobility, suspect local reaction to incontinence
Marked anemia
Leukopenia
SIRS (hypotension, tachycardia, leukopenia)
- improved
Fatty liver
Elevated bilirubin
Obesity
Recommendations:
Currently on Zosyn (day #5).
No resistant organisms recovered.
Narrow to Unasyn for an additional 3 to 5 days.
Monitor white count and temperature curve.
Continue with supportive measures. Local care to the superficial buttock wounds.
Further recommendations as additional data is returned.
����������������������������������������������������������
Chief Complaint
-: Cellulitis
Subjective / Review of Systems
Patient seen and examined. No specific complaints at present. Reports some mild shortness of breath.
Review of Systems: No Fever and No Chills
Vital Signs / Physical Exam
Vital Signs
Vital Signs
Temp Pulse Resp BP Pulse Ox
98.6 F 100 28 123/90 98
08/03/24 07:41 08/03/24 08:00 08/02/24 20:00 08/03/24 08:00 08/03/24 08:00
Physical Exam
Constitutional: No Acute Distress, Comfortable, Chronically Ill, Non-toxic and Obese
Head: Normocephalic
Eyes: No Conjunctival Hemorrhage and Sclera Anicteric
Cardiovascular: S1/S2; Negative S3/S4
Pulmonary: Coarse and Non Labored
Gastrointestinal: Soft, Non Tender and Non Distended
Extremities: Edema; Negative Cyanosis or Erythema
Wound: Other (Buttock wounds dressed. Surrounding tissue remains erythematous, although slight improvement. Wounds appear less 'moist')
Neurological: Awake and Alert
Psychological: Calm
Objective Data
Lab Data
Lab Results
08/03/24 05:04
08/03/24 05:04
PT 14.6 Sec (11.4-14.6) 08/03/24 05:03
INR 1.11 08/03/24 05:03
APTT 34.3 Sec (23.4-35.0) 08/03/24 05:03
Estimated Creat Clear > 125 ml/min 08/03/24 05:04
Lactic Acid Cancelled 07/30/24 21:30
Total Bilirubin 1.7 mg/dl (0.2-1.3) H 08/03/24 05:04
AST 107 U/L (14-36) H 08/03/24 05:04
ALT 16 U/L (0-35) 08/03/24 05:04
Alkaline Phosphatase 176 U/L (38-126) H 08/03/24 05:04
Most recent labs reviewed.
Micro Results:
07/30/24 15:56 Blood Culture - Preliminary
Blood/Venous No Growth in 72 hours- Final report to follow
07/30/24 15:56 Blood Culture - Preliminary
Blood/Venous No Growth in 72 hours- Final report to follow
07/31/24 04:22 MRSA Screen - Final
Nose No Methicillin Resistant Staphylococcus aureus isolated.
Imaging:
07/30/2024 CT chest / abdomen / pelvis with IV contrast: Hepatomegaly with severe fatty infiltration. No retroperitoneal mass or adenopathy. Nonocclusive thrombus demonstrated throughout most of the splenic vein. Portal vein is patent. No
abdominal free air or ascites. No focal collection or abscess noted. Mild nonspecific soft tissue stranding within the ischial rectal fossa fat bilaterally, right slightly greater than left. No focal collection or abscess seen, although on direct
visualization, attenuation noted in the right buttock/gluteal area on image 105.
(Photo taken 07/31/2024)
[2024-08-03] MEDS: VITAMIN B-12 1000 MCG PO (09:17)
[2024-08-03] MEDS: PEPCID 20 MG PO (09:17)
[2024-08-03] MEDS: UNASYN IV ×2 (09:18→15:48)
[2024-08-03] MEDS: SODIUM BICARBONATE 650 MG PO ×2 (09:18→15:48)
[2024-08-03] MEDS: VITAMIN C 1000 MG PO (09:18)
[2024-08-03] MEDS: FOLVITE 1 MG PO (09:18)
[2024-08-03] MEDS: KCL 40 MEQ PO ×2 (09:18→21:08)
--- NOTE | 2024-08-03 10:33 | PN.CDI ---
CDI
- -
CDI:
Physician Documentation Request
Admit Date: 07/30/24 17:02
Dear Doctor Mike,
Hospitalist progress notes states 'normocytic anemia-Likely multifactorial secondary to malnutrition, folate and B12 deficiency'
To ensure the quality of the medical record, based on the above information and the recognized standards for malnutrition , could you please verify in your progress notes which of the following responses best reflects the patient's nutritional
status:
(Specify severity) Malnutrition is/was present and is a clinical diagnosis (please provide additional support in the medical record)
No nutritional deficiency
Other (please specify)
[place] Criteria ([facility] Hospitalist 2017)
2 or more criteria must be present for either
non severe or severe malnutrition
Note that the criteria differs related to the
presence of an acute or chronic illness
Acute Illness Chronic Illness
Energy Intake Non Severe: <75% for >7 days Non Severe: <75% for >1 month
Severe: <50% for >5 days Severe: <75% for >1 month
Weight Loss Non Severe: 1-2% over 1 week Non Severe: 5% over 1 month
5% over 1 month 7.5% over 3 months
7.5% over 3 months 10% over 6 months
1 year N/A 20% over 1 year
Severe: >2% over 1 week Severe: >5% over 1 month
>5% over 1 month >7.5% over 3 months
>7.5% over 3 months >10% over 6 months
1 year N/A >20% over 1 year
Body Fat Non Severe: Mild Decrease Non Severe: Mild Loss
Severe: Moderate Decrease Severe: Severe Loss
Muscle Mass Non Severe: Mild Decrease Non Severe: Mild Loss
Severe: Moderate Decrease Severe: Severe Loss
Fluid Accumulation Non Severe: Mild Accumulation Non Severe: Mild Accumulation
Severe: Moderate to severe Severe: Moderate to severe
accumulation accumulation
Reduced Blending Tank Tender Helper Strength Non Severe: N/A Non Severe: N/A
Severe: Measurably reduced Severe: Measurably reduced
Use of terms such as suspected, likely, concern for, or probable (associated with a specific diagnosis that is being evaluated, monitored, or treated as if it exists) are acceptable and can be coded in the inpatient setting, when documented at the
time of discharge.
Thank you,
Ladi Meadows RN, BSN
CDI Specialist
tiger text
Please use your independent medical judgment in providing your response.
--- NOTE | 2024-08-03 10:37 | PN.CDI ---
CDI
- -
CDI:
Physician Documentation Request
Admit Date: 07/30/24 17:02
Dear Doctor Mike,
08/02 WOCN note states ' Multiple scattered deep dermal stage 2 pressure injuries/moisture related injuries bilateral buttocks (R>L) and linear stage 2 vs MASD coccyx crease ulcer.'
Physician documentation of the type and location of wounds is required for compliant documentation. Based on the above clinical findings and your assessment, please provide the following in your progress note:
1. Location of the ulcer/wound, including laterality.
2. Type (etiology) of ulcer/wound:
- Traumatic wound
- Pressure (decubitus) ulcer
- Other
Use of terms such as suspected, likely, concern for, or probable (associated with a specific diagnosis that is being evaluated, monitored, or treated as if it exists) are acceptable and can be coded in the inpatient setting, when documented at the
time of discharge.
Thank you,
Ladi Meadows RN, BSN
CDI Specialist
tiger text
Please use your independent medical judgment in providing your response.
*Source: National Pressure Ulcer Advisory Panel (NPUAP)
[2024-08-03] MEDS: DILAUDID 0.5 MG IV ×2 (11:21→20:40)
--- NOTE | 2024-08-03 11:51 | W.PN.HOSP.TC ---
Today's Communication/Plan
-
Transition to IV Unasyn per ID
Continue to trend CBC, follow-up for final cultures
Check CPK level
Assessment / Plan
Assessment / Plan
#Septic shock secondary to bilateral gluteal cellulitis with skin ulceration
-Status post vasopressor course with Levophed, has been hemodynamically stable since
-CT A/P was negative for deep tissue infection or abscess
-ID following, has been improving on IV Zosyn; s/p vancomycin, negative MRSA test
-Was evaluated by surgery, recommended no surgical intervention at this time
-Blood cultures pending final results, have been negative after 48 hours
-Antibiotics de-escalated to Unasyn by ID today
-Continue to trend CBC and temperature curve
-Continue with as needed analgesia
#Leukopenia
-Likely secondary to B vitamin deficiency and reactive component with sepsis
-White cell count has been in the range of 3-4
-Continue to trend CBC
#Bruising
-Patient complaining of generalized discomfort, noted to have bruising along extremities
-Question if she has some underlying coagulopathy
-On arrival PT 15.8, APTT 40.5
-Repeat coags WNL
#Transaminitis
-ALT levels normal, AST elevated in the 100s (>10 X ALT)
-Suspect that this may be secondary to muscle breakdown and ulcerations
-Will continue to trend LFTs, consider RUQ US
#Normocytic anemia
-Likely multifactorial secondary to folate and B12 deficiency; possible component of inflammatory anemia
-Status post 2 units of PRBC for initial hemoglobin 5.4; most recent hemoglobin 8.4
-Iron panel without evidence of iron deficiency; reticulocyte count 2 likely low in the context of B vitamin deficiency
-No obvious signs of bleeding, trace amounts near her skin ulcers on the buttocks
-Continue to trend daily CBC
#Nonocclusive splenic vein thrombus
-Noted on arterial Doppler ultrasound
-Evaluated by heme/onc, recommended against anticoagulation
#Vitamin D deficiency
-Was started on vitamin D supplement here
#Mild metabolic acidosis
-Likely secondary to infection, was started on oral bicarbonate previously here
-Continue to trend BMP, expect this to improve with elimination of infection
#Hair loss
-Cannot rule out underlying inflammatory condition/autoimmunity
-Per the patient it started about 2 months ago, with hair falling out
-TSH levels were normal, no other obvious metabolic cause
-Should follow-up with chemical process equipment operator as outpatient
#Hepatomegaly
-With her obesity, suspicion high for NAFLD
-Will need to follow-up with gastroenterology as outpatient
#Stage II ulcerative lesions of the buttocks
-Likely related to pressure, also possibly contamination from incontinence
-Wound care following
#Musculoskeletal chest wall pain
-Has generalized discomfort, especially with palpation
-Reproducible pain to the left chest, ordered lidocaine patch
#Weakness
-Patient states roughly 2 months ago she developed difficulty with walking upstairs and falls
-Still seems fairly weak, has not been out of bed much in the hospital
-PT/OT ordered for assessment
-Consider checking CK level
DVT prophylaxis: SCDs
Diet: Regular
CODE STATUS: Full code
Anticipated Discharge: 24 - 48 hours
Subjective/Interval History
-
Date of Service: August 03, 2024
Seen and examined at bedside. No acute events reported overnight. AFVSS this morning
States she feels better, seems like she has more energy and is in less discomfort today. Still generalized tenderness to palpation/achiness, improved from previously per her history. Also mentions some chest discomfort associated with breathing.
Reproducible to palpation of the chest wall
Denies any other acute complaints
Objective Data
-
Labs:
Laboratory Results
08/03/24 08/03/24
05:03 05:04
WBC 3.1 L
Hgb 7.8 L
Hct 25.3 L
Plt Count 281
PT 14.6
INR 1.11
APTT 34.3
Sodium 139
Potassium 3.1 L
Chloride 110 H
Carbon Dioxide 22
BUN < 2 L
Creatinine 0.5 L
Glucose 76
Calcium 7.6 L
Total Bilirubin 1.7 H
AST 107 H
ALT 16
Alkaline Phosphatase 176 H
Vital Signs:
Vital Signs
Temp Pulse Resp BP Pulse Ox
98.6 F 110 28 123/90 98
08/03/24 07:41 08/03/24 10:00 08/02/24 20:00 08/03/24 08:00 08/03/24 08:00
I&O
08/02/24 08/03/24 08/04/24
06:59 06:59 06:59
Intake Total 1140 / 1140 2170 / 2170
Output Total 3005 / 3005 2800 / 2800
Balance -1865 / -1865 -630 / -630
Review of Systems
-
History Source: Patient
All other systems: Reviewed and negative
Physical Exam
-
General: Well Developed, No Apparent Distress, Comfortable and Obese
HEENT: Normocephalic, Atraumatic, Moist Mucous Membranes, Anicteric and Other (Patches of thin hair)
Respiratory: Clear to Auscultation and Non Labored Respirations; Negative Wheezes, Rales or Rhonchi
Cardiac: Regular Rhythm and S1/S2; Negative Murmur, Rub or Gallop
GI: Soft, Nontender, Nondistended and Normal Bowel Sounds
Musculoskeletal: No Clubbing, No Cyanosis, No Edema and Other (Tenderness to palpation generally, reproducible chest wall tenderness)
Skin: Warm, Dry and Normal Turgor; Negative Rash
Neuro: AO x 3 and Nonfocal/Grossly Intact
Psych: Calm
Data Reviewed
-
Labs: Labs Reviewed by me, Discussed with Patient and Discussed with Family
[2024-08-03 13:02] LABS: Creatine Phosphokinase < 20 U/L (30-135)
[2024-08-03] MEDS: LIDOCAINE 4% PATCH 1 PATCH TOPICAL (13:20)
[2024-08-03] MEDS: THERAGRAN 1 TABLET PO (18:01)
--- NOTE | 2024-08-03 18:07 | PTCARENOTE ---
Pt transferred from IMU . Report received from irasema BINGHAM. Patient resting comfortably in bed. Tele monitor in place.
[2024-08-04] VITALS (7 sets, daily range): BP systolic 122–161; BP diastolic 84–97; BMI 34.1
[2024-08-04] MEDS: DILAUDID 0.5 MG IV ×2 (00:12→03:30)
[2024-08-04] MEDS: UNASYN IV ×3 (00:14→11:04)
[2024-08-04] MEDS: SODIUM BICARBONATE 650 MG PO ×4 (00:15→21:31)
[2024-08-04] MEDS: BENADRYL 25 MG PO (05:11)
[2024-08-04 06:03] LABS: % Basophils 0.2 % (0-2); % Eosinophils 3.5 % (0-6); % Immature Granulocytes 1.1 % (0-0.5); % Lymphocytes 24.2 % (20.5-51.1); Absolute Eosinophils 0.2 10^3/uL (0-0.7); Absolute Immature Granulocytes 0.1 10^3/uL (0-0.05); Absolute Lymphocytes 1.1 10^3/uL (1.2-3.4); Absolute Monocytes 0.5 10^3/uL (0.1-0.6); Absolute Neutrophils 2.8 10^3/uL (1.4-6.5); Hematocrit 25.6 % (37.0-47.0); Hemoglobin 8.2 g/dL (12.0-16.0); Mean Corpuscular Hgb 27.4 pg (27.0-31.0); Mean Corpuscular Volume 85.6 fL (81.0-99.0); Nucleated Red Blood Cells % 0 %; Red Blood Cell Count 2.99 10^6/uL (4.20-5.40); Red Cell Dist. Width 17.7 % (11.5-14.5); White Blood Cell Count 4.6 10^3/uL (4.8-10.8)
[2024-08-04 06:10] LABS: Troponin I < 0.012 ng/ml
[2024-08-04 06:12] LABS: Blood Urea Nitrogen < 2 mg/dl (7-17); Calcium 7.6 mg/dl (8.4-10.2); Carbon Dioxide 21 mmol/L (22-30); Chloride 109 mmol/L (98-107); Creatine Phosphokinase < 20 U/L (30-135); Estimated Creatinine Clearance > 125 ml/min; Glucose 75 mg/dl (70-99); Potassium 3.5 mmol/L (3.5-5.1); Sodium 138 mmol/L (135-145); eGFR > 60.00
[2024-08-04] MEDS: KCL 40 MEQ PO (08:19)
[2024-08-04] MEDS: FOLVITE 1 MG PO (08:19)
[2024-08-04] MEDS: VITAMIN B-12 1000 MCG PO (08:19)
[2024-08-04] MEDS: VITAMIN B1 100 MG PO (08:19)
[2024-08-04] MEDS: PEPCID 20 MG PO (08:19)
[2024-08-04] MEDS: THERAGRAN 1 TABLET PO (08:19)
[2024-08-04] MEDS: VITAMIN C 1000 MG PO (08:19)
[2024-08-04] MEDS: LIDOCAINE 4% PATCH 1 PATCH TOPICAL (08:20)
--- NOTE | 2024-08-04 11:14 | W.PN.ID1 ---
Date of Service
Date of Service: August 04, 2024
Today's Communication
Sign off.
Assessment / Plan
Bilateral buttock/gluteal cellulitis with superficial tissue ulcerations
- Given history of immobility, suspect local reaction to incontinence
Marked anemia
Leukopenia
SIRS (hypotension, tachycardia, leukopenia)
- improved
Fatty liver
Elevated bilirubin
Obesity
Recommendations:
Currently antibiotic d#6.
Narrow to Keflex 500 mg p.o. 4 times daily for an additional 4 days.
Continue with supportive measures. Local care to the superficial buttock wounds.
Little more to offer from a Infectious Diseases standpoint.
Will see again at your request.
����������������������������������������������������������
Chief Complaint
-: Cellulitis
Subjective / Review of Systems
Review of Systems: No Fever and No Chills
Vital Signs / Physical Exam
Vital Signs
Vital Signs
Temp Pulse Resp BP Pulse Ox
98.5 F 114 17 161/91 98
08/04/24 07:35 08/04/24 07:35 08/04/24 07:35 08/04/24 07:35 08/04/24 07:35
Physical Exam
Constitutional: No Acute Distress, Comfortable, Chronically Ill, Non-toxic and Obese
Head: Normocephalic
Eyes: No Conjunctival Hemorrhage and Sclera Anicteric
Cardiovascular: S1/S2; Negative S3/S4
Pulmonary: Coarse and Non Labored
Gastrointestinal: Soft, Non Tender and Non Distended
Extremities: Edema; Negative Cyanosis or Erythema
Wound: Other (Buttock wounds dressed. )
Neurological: Awake and Alert
Psychological: Calm
Objective Data
Lab Data
Lab Results
08/04/24 05:33
08/04/24 05:33
PT 14.6 Sec (11.4-14.6) 08/03/24 05:03
INR 1.11 08/03/24 05:03
APTT 34.3 Sec (23.4-35.0) 08/03/24 05:03
Estimated Creat Clear > 125 ml/min 08/04/24 05:33
Lactic Acid Cancelled 07/30/24 21:30
Total Bilirubin 1.7 mg/dl (0.2-1.3) H 08/03/24 05:04
AST 107 U/L (14-36) H 08/03/24 05:04
ALT 16 U/L (0-35) 08/03/24 05:04
Alkaline Phosphatase 176 U/L (38-126) H 08/03/24 05:04
Most recent labs reviewed.
Micro Results:
07/30/24 15:56 Blood Culture - Preliminary
Blood/Venous No Growth in 4 days- Final report to follow
07/30/24 15:56 Blood Culture - Preliminary
Blood/Venous No Growth in 4 days- Final report to follow
07/31/24 04:22 MRSA Screen - Final
Nose No Methicillin Resistant Staphylococcus aureus isolated.
Imaging:
07/30/2024 CT chest / abdomen / pelvis with IV contrast: Hepatomegaly with severe fatty infiltration. No retroperitoneal mass or adenopathy. Nonocclusive thrombus demonstrated throughout most of the splenic vein. Portal vein is patent. No
abdominal free air or ascites. No focal collection or abscess noted. Mild nonspecific soft tissue stranding within the ischial rectal fossa fat bilaterally, right slightly greater than left. No focal collection or abscess seen, although on direct
visualization, attenuation noted in the right buttock/gluteal area on image 105.
[2024-08-04] MEDS: ZOFRAN 4 MG IV (11:27)
--- NOTE | 2024-08-04 12:00 | PTCARENOTE ---
Patient having nausea and vomiting after taking PO pills and while eating breakfast. Patient also having loose stools. PRN Zofran administered per order. Language line used to communicate with patient. Patient states that for 1.5 months she has had
nausea and vomiting after eating. Patient states that she has also been losing her hair since that time as well. Other symptoms patient reported is weakness and body aches. MD made aware. Labs ordered. Stool sample sent.
--- NOTE | 2024-08-04 13:10 | W.PN.HOSP.TC ---
Today's Communication/Plan
-
Transition to Keflex
Malabsorption labs
Test for norovirus
Nutritional supplements
Monitor BMP and CBC
Assessment / Plan
Assessment / Plan
#Septic shock secondary to bilateral gluteal cellulitis with skin ulceration
-Status post vasopressor course with Levophed, has been hemodynamically stable since
-CT A/P was negative for deep tissue infection or abscess
-ID following, has been improving on IV Zosyn; s/p vancomycin, negative MRSA test
-Was evaluated by surgery, recommended no surgical intervention at this time
-Blood cultures pending final results, have been negative after 48 hours
-Antibiotics de-escalated from Unasyn to Keflex, last day ABX 08/08
-Continue to trend CBC and temperature curve
-Continue with as needed analgesia
#Malnutrition
-Suspect that this may be related to underlying malabsorptive process
-Multiple vitamin and mineral deficiencies seen on admission
-Dietary history adequate for multiple sources of nutrition, variety
-Currently on vitamin supplements with vitamin C, B vitamins, multivitamin
-Ordering celiac panel, fecal fat, fecal elastase to assess for underlying malabsorptive process
-Encourage p.o. intake for now
#Nausea and vomiting
-Has had on occasion but was significant today
-Had nausea and vomiting following her morning meds
-Zofran ordered, norovirus testing ordered
#Leukopenia
-Likely secondary to B vitamin deficiency and reactive component with sepsis
-White cell count has been in the range of 3-4
-Continue to trend CBC
-May benefit from bone marrow biopsy as OP
#Bruising
-Patient complaining of generalized discomfort, noted to have bruising along extremities
-Question if she has some underlying coagulopathy
-On arrival PT 15.8, APTT 40.5
-Repeat coags WNL
#Transaminitis
-ALT levels normal, AST elevated in the 100s (>10 X ALT)
-Suspect that this may be secondary to muscle breakdown and ulcerations
-Will continue to trend LFTs, consider RUQ US
#Normocytic anemia
-Likely multifactorial secondary to folate and B12 deficiency; possible component of inflammatory anemia
-Status post 2 units of PRBC for initial hemoglobin 5.4; most recent hemoglobin 8.4
-Iron panel without evidence of iron deficiency; reticulocyte count 2 likely low in the context of B vitamin deficiency
-No obvious signs of bleeding, trace amounts near her skin ulcers on the buttocks
-Continue to trend daily CBC
#Nonocclusive splenic vein thrombus
-Noted on arterial Doppler ultrasound
-Evaluated by heme/onc, recommended against anticoagulation
#Vitamin D deficiency
-Was started on vitamin D supplement here
#Mild metabolic acidosis
-Likely secondary to infection, was started on oral bicarbonate previously here
-Continue to trend BMP, expect this to improve with elimination of infection
#Hair loss
-Cannot rule out underlying inflammatory condition/autoimmunity
-Per the patient it started about 2 months ago, with hair falling out
-TSH levels were normal, no other obvious metabolic cause
-Should follow-up with track patrol as outpatient
#Hepatomegaly
-With her obesity, suspicion high for NAFLD
-Will need to follow-up with gastroenterology as outpatient
#Stage II ulcerative lesions of the buttocks
-Likely related to pressure, also possibly contamination from incontinence
-Wound care following
#Musculoskeletal chest wall pain
-Has generalized discomfort, especially with palpation
-Reproducible pain to the left chest, ordered lidocaine patch
#Weakness
-Patient states roughly 2 months ago she developed difficulty with walking upstairs and falls
-Still seems fairly weak, has not been out of bed much in the hospital
-CK level normal
DVT prophylaxis: SCDs
Diet: Regular
CODE STATUS: Full code
Anticipated Discharge: 24 - 48 hours
Subjective/Interval History
-
Date of Service: August 04, 2024
Seen and examined at the bedside. No acute events reported overnight. AFVSS this morning. Organisational Psychologist [id number] assisted with conversation
She states she felt well at time of my evaluation. Pain improving daily. Later in the morning she did start to complain of some nausea and vomiting, noted to have some nausea and vomiting.
I had a very long discussion about her GI history. States that she has had times where she has had multiple days of diarrhea without a clear reason why. They are not very frequent to though have happened on multiple occurrences. She denies any
known reactions to foods including those that contain gluten. Does state that milk has upset her stomach recently. On a daily basis at home, she seems to have a consistent source of nutrition with 2-3 meals daily. Has a variety of foods she eats
and include vegetables fruits, meats, breads. Denies any previous intra-abdominal procedures.
States she has a bit of a sore throat this morning though has no other acute complaints
Objective Data
-
Labs:
Laboratory Results
08/04/24
05:33
WBC 4.6 L
Hgb 8.2 L
Hct 25.6 L
Plt Count
Sodium 138
Potassium 3.5
Chloride 109 H
Carbon Dioxide 21 L
BUN < 2 L
Creatinine 0.4 L
Glucose 75
Calcium 7.6 L
Vital Signs:
Vital Signs
Temp Pulse Resp BP Pulse Ox
98.5 F 113 17 130/87 94
08/04/24 11:00 08/04/24 11:00 08/04/24 11:00 08/04/24 11:00 08/04/24 11:00
I&O
08/03/24 08/04/24 08/05/24
06:59 06:59 06:59
Intake Total 2170 / 2170
Output Total 2800 / 2800 1575 / 1575
Balance -630 / -630 -1575 / -1575
Review of Systems
-
History Source: Patient
All other systems: Reviewed and negative
Physical Exam
-
General: Well Developed, No Apparent Distress, Comfortable and Obese
HEENT: Normocephalic, Atraumatic, Moist Mucous Membranes, Anicteric, PERRLA and Other (Generalized hair thinning)
Respiratory: Clear to Auscultation and Non Labored Respirations
Cardiac: Regular Rhythm and S1/S2; Negative Murmur, Rub or Gallop
GI: Soft, Nontender, Nondistended and Normal Bowel Sounds
Musculoskeletal: No Clubbing, No Cyanosis, No Edema and Other (Generalized tenderness to palpation, improving)
Skin: Warm, Dry and Normal Turgor; Negative Rash or Jaundice
Neuro: AO x 3, Nonfocal/Grossly Intact and Central Nerve's Intact
Hematologic / Lymphatic: No Lymphadenopathy
Psych: Calm
Data Reviewed
-
Labs: Labs Reviewed by me, Discussed with Physician (Infectious disease) and Discussed with Patient
--- NOTE | 2024-08-04 13:46 | CM ---
Reviewed the chart notes. Placed a call to [facility] . CM spoke with customer counter representative who informed CM that she collects information and passes it on to the APS branch who will call CM back. CM provided contact information to
customer counter representative and awaits call back. CM continues to be available to patient/family and is monitoring medical plan for needs at discharge.
Plan: Discharge plans will depend on the patient's progress. Patient has no insurance. [facility] information was provided by previous CM.
[2024-08-04] MEDS: KEFLEX 500 MG PO ×3 (14:03→21:31)
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
--- NOTE | 2024-08-04 16:20 | WOUNDNOTE ---
L HIP/THIGH (POSTERIOR)
--- NOTE | 2024-08-04 16:21 | WOUNDNOTE ---
R HIP/THIGH/KNEE (POSTERIOR)
--- NOTE | 2024-08-04 16:23 | WOUNDNOTE ---
R AXILLA/UPPER MEDIAL ARM
--- NOTE | 2024-08-04 16:38 | WOUNDNOTE ---
[facility] RN note: Was asked to take pictures of patient's bruises for documentation by nursing supervisor trust accounts Ana Lugo. Patient turned to R semi side lying position. Heels off bed with pillow. Patient turned slowly in bed. Bariatric air chair cushion
placed in recliner chair. Will follow as needed.
[2024-08-05] VITALS (9 sets, daily range): BP systolic 124–140; BP diastolic 82–101; BMI 32.8
[2024-08-05 05:31] LABS: IgA 287 mg/dl (70-400)
[2024-08-05] MEDS: TYLENOL 650 MG PO (06:35)
[2024-08-05 07:12] LABS: % Basophils 0.3 % (0-2); % Eosinophils 2.7 % (0-6); % Immature Granulocytes 1.2 % (0-0.5); % Lymphocytes 26.5 % (20.5-51.1); % Monocytes 9.1 % (1.7-9.3); % Neutrophils 60.2 % (42.2-75.2); Absolute Eosinophils 0.2 10^3/uL (0-0.7); Absolute Immature Granulocytes 0.1 10^3/uL (0-0.05); Absolute Lymphocytes 1.6 10^3/uL (1.2-3.4); Absolute Monocytes 0.5 10^3/uL (0.1-0.6); Absolute Neutrophils 3.6 10^3/uL (1.4-6.5); Hematocrit 24.4 % (37.0-47.0); Hemoglobin 7.6 g/dL (12.0-16.0); Mean Corp Hgb Conc. 31.1 g/dL (33.0-37.0); Mean Corpuscular Hgb 27.7 pg (27.0-31.0); Mean Corpuscular Volume 89.1 fL (81.0-99.0); Mean Platelet Volume 9.8 fL (7.4-10.4); Nucleated Red Blood Cells % 0 %; Platelet Count 313 10^3/uL (130-400); Red Blood Cell Count 2.74 10^6/uL (4.20-5.40); Red Cell Dist. Width 17.9 % (11.5-14.5); White Blood Cell Count 5.9 10^3/uL (4.8-10.8)
[2024-08-05 07:53] LABS: ALT (SGPT) 19 U/L (0-35); AST (SGOT) 111 U/L (14-36); Albumin 2.1 g/dl (3.5-5.0); Alkaline Phosphatase 202 U/L (38-126); Blood Urea Nitrogen 2 mg/dl (7-17); Calcium 7.5 mg/dl (8.4-10.2); Carbon Dioxide 23 mmol/L (22-30); Chloride 110 mmol/L (98-107); Direct Bilirubin 1.2 mg/dl (0.0-0.4); Estimated Creatinine Clearance > 125 ml/min; Glucose 94 mg/dl (70-99); Potassium 3.3 mmol/L (3.5-5.1); Sodium 138 mmol/L (135-145); Total Bilirubin 1.8 mg/dl (0.2-1.3); Total Protein 5.2 g/dl (6.3-8.2); eGFR > 60.00
[2024-08-05] MEDS: KCL ELIXIR 40 MEQ PO (09:09)
[2024-08-05] MEDS: THERAGRAN 1 TABLET PO (09:09)
[2024-08-05] MEDS: FEOSOL 325 MG PO (09:09)
[2024-08-05] MEDS: SODIUM BICARBONATE 650 MG PO ×3 (09:09→21:18)
[2024-08-05] MEDS: PEPCID 20 MG PO (09:10)
[2024-08-05] MEDS: VITAMIN B1 100 MG PO (09:10)
[2024-08-05] MEDS: VITAMIN C 1000 MG PO (09:10)
[2024-08-05] MEDS: VITAMIN B-12 1000 MCG PO (09:10)
[2024-08-05] MEDS: LIDOCAINE 4% PATCH 1 PATCH TOPICAL (09:11)
[2024-08-05] MEDS: FOLVITE 1 MG PO (09:11)
[2024-08-05] MEDS: KEFLEX 500 MG PO ×4 (09:11→21:18)
--- NOTE | 2024-08-05 09:36 | PTCARENOTE ---
MD made aware of tachycardia, HR sustaining in 130s and fever. 1 unit PRBCs ordered. Temp rechecked after patient received Tylenol and is 97.6.
--- NOTE | 2024-08-05 11:59 | CON.GI ---
Addendum entered and electronically signed by Lyndsey Jiang MD 08/05/24 16:49:
I saw and examined the patient.
The ACID PUMP OPERATOR's note was reviewed and I agree with the note.
Comment: This is an unfortunate 18-year-old female with no significant past medical history who presented on 07/30 with rash on her buttock and was diagnosed with and was diagnosed with gluteal cellulitis and also had sepsis and was on pressors was
able to wean off of it and has been on antibiotics. She also had leukopenia and severe anemia and has been started on thiamine folic acid B12 and multivitamin and counts have improved. She did receive 2 units of packed red blood cells and her
hemoglobin went up from 5.4 and now is 8.4 but today is 7.6 and is scheduled to receive another unit of blood. she was also noted to have severe vitamin D deficiency and has been started on supplements. On imaging she was found to have nonocclusive
splenic vein thrombosis was evaluated by hematology and recommended against anticoagulation and also was noted to have bruising on her upper extremities her platelet counts are normal and INR is normal.. She was also noted to have abnormal LFTs and
fatty liver on imaging. She works at [employer]. She is also been having weakness and has not really been able to ambulate in the hospital. She has been having symptoms of abdominal pain with nausea vomiting diarrhea prior to admission and even
in the hospital had recurrent nausea vomiting and we were consulted. She did have norovirus tested yesterday which was negative rest of the stool studies are pending
Assessment and plan 1. Severe anemia most likely related to malnutrition with decreased oral intake of iron and also anemia of chronic disease her iron studies are more consistent with AOCD may be related to her sepsis with severe cellulitis and
also may be related to chronic blood loss from her periods. will also need to rule out chronic GI blood loss and will need eventual endoscopy and colonoscopy for this. Celiac serologies are currently pending.
2. She also has been having symptoms of nausea vomiting diarrhea intermittently CT on admission was negative for bowel obstruction, symptoms may be related to severe multi vitamin deficiencies she has alopecia. also she has been started on
supplements with folate B12 thiamine and also vitamin D for deficiency. Celiac serologies currently pending. continue Pepcid. will need eventual E/C when stable if symptoms persist. She may also need autoimmune workup
3. She also has abnormal LFTs with fatty liver on imaging studies and on ultrasound and CT will need further workup of this as outpatient continue to monitor LFTs. HIV was negative will get hepatitis serologies. She denies alcohol use her AST is
greater than ALT.
Original Note:
Consultation
-
Date/Time Consultation Requested: 08/05/24 1115
Date/Time Consultation Performed: 08/05/24 1430
Requesting Provider: Neil Mckeon DO
Performing Provider: NIKHIL Stone, Lyndsey Jiang MD
Reason for Consultation: anemia/bruising
Medical History
Chief Complaint / HPI
Chief Complaint: weakness
History of Present Illness:
Pt is a 18yo with admission 07/30 with reported rash and hives on buttock with increased redness and progressive weakness. On admission there was concern for cellulitis with multiple excoriated wounds, ulceration and bruising throughout her body and
sepsis with hypotension and tachycardia. She is also noted with multiple issue with hypokalemia, leukopenia, normocytic anemia with hbg down to 5.4 and iron studies not consistent with iron deficiency but folate deficiency with folate 2.2 with
B12 448 and severe vitamin D deficiency with level <12.8. She also has elevated LFT's with initial labs with bili 2.6, AST 90, ALT 21, alk phos 182 ,INR 1.23, and albumin 2.6. Drug screen + Opiates. abd imaging since admission with CT
chest/ab/pelvis with treace effusion, hepatomegaly, severe fatty liver, nonocclusive splenic vein thrombosis and patent portal vein, soft tissue stranding in ischiorectal fossa fat, b/l right greater than left. Doppler US with HM, no
cholelithiasis, GBWT or biliary dilation, normal directional flow cannot confirm splenic vein thrombosis.US abdomen with mild hepatic enlargement, diffuse fatty liver, no cholelithiasis or acute cholecystitis.
With use of language line as pt speaks only tanzanian. She admits to only medical care as child was when she was sick and has not seen MD in December years. She came to to [place] about 3 years ago and has been working at [employer]. She states a few
weeks ago she fell and has been weak and unable to walk with development of sores on Buttocks. She admits to weight loss but unsure how much. She c/o scratchy throat and mid abdominal pain. Difficulty to say what makes pain better or worse. She
also admits to diarrhea. She denies no dysphagia, GERD, nausea, vomiting. Denies NSAID use but does use Tylenol as needed.
Past Medical History
Past Medical History: Other (no medical care for years only when sick as child years ago)
Social History
Tobacco: Non-Smoker
Alcohol: None
Drug: None
Living: Other (friends )
Family History
Family History: Other (father history unknown, mother lives in [facility] with hx diabetes )
Allergies / Home Medications
Allergy/AdvReac Type Severity Reaction Status Date / Time
pineapple Allergy Unknown Verified 07/31/24 00:13
�Medication �Instructions �Recorded
No Meds [No Current Medications] 07/30/24
Review of Systems
-
Unable to obtain full review of systems at this time due to: Language Barrier
History Source: Patient
Constitutional: Reports Weight Loss (unsure on amount ) and Fatigue
EENT: Reports No Symptoms
Respiratory: Reports No Symptoms
Cardiac: Reports No Symptoms
Abdomen/GI: Reports Abdominal Pain and Diarrhea
: Reports No Symptoms and Other (denies mense for last 4-5 months )
Musculoskeletal: Reports Other (weakness states inability to walk in past 2 weeks s/p fall)
Skin: Reports No Symptoms
Neurological: Reports Weakness
Endocrine: Reports No Symptoms
Hematologic/Lymphatic: Reports No Symptoms
Vital Signs
Temp Pulse Resp BP Pulse Ox
97.6 F 127 18 135/88 95
08/05/24 09:26 08/05/24 07:35 08/05/24 07:35 08/05/24 07:35 08/05/24 07:35
Physical Exam
Exam
General: Other (noted with poor hygiene with long nails and matted hair with some missing spots of hair, multiple diffuse bruising arms, legs, periarea)
HEENT: Normocephalic, Anicteric and Other (dry lips and mouth )
Respiratory: Clear
Cardiac: Other (tachy )
GI: Soft, Non Distended and Tender (mild diffuse )
Rectal: Deferred by Provider
Musculoskeletal: No Clubbing and No Cyanosis
Skin: Warm, Dry and Other (diffuse bruising )
Neuro: Awake, Alert and AO x 3
Psych: Calm
Results
WBC 5.9 10^3/uL (4.8-10.8) 08/05/24 06:37
Hgb 7.6 g/dL (12.0-16.0) L 08/05/24 06:37
Hct 24.4 % (37.0-47.0) L 08/05/24 06:37
MCV 89.1 fL (81.0-99.0) 08/05/24 06:37
Plt Count 313 10^3/uL (130-400) 08/05/24 06:37
Absolute Neuts (auto) 3.6 10^3/uL (1.4-6.5) 08/05/24 06:37
PT 14.6 Sec (11.4-14.6) 08/03/24 05:03
INR 1.11 08/03/24 05:03
APTT 34.3 Sec (23.4-35.0) 08/03/24 05:03
Sodium 138 mmol/L (135-145) 08/05/24 06:37
Potassium 3.3 mmol/L (3.5-5.1) L 08/05/24 06:37
Chloride 110 mmol/L (98-107) H 08/05/24 06:37
Carbon Dioxide 23 mmol/L (22-30) 08/05/24 06:37
BUN 2 mg/dl (7-17) L 08/05/24 06:37
Creatinine 0.4 mg/dL (0.6-1.0) L 08/05/24 06:37
Calcium 7.5 mg/dl (8.4-10.2) L 08/05/24 06:37
Total Bilirubin 1.8 mg/dl (0.2-1.3) H 08/05/24 06:37
AST 111 U/L (14-36) H 08/05/24 06:37
ALT 19 U/L (0-35) 08/05/24 06:37
Alkaline Phosphatase 202 U/L (38-126) H 08/05/24 06:37
Diagnostic Image Results:
07/30/24 CT Chest/abd/pelvis
Trace bilateral pleural effusion, right greater than left. Bibasilar atelectasis.
Hepatomegaly. Severe fatty infiltration.
Nonocclusive splenic vein thrombus. The portal vein is patent.
Mild nonspecific soft tissue stranding within the ischiorectal fossa fat, bilaterally, right slightly greater than left. However, no focal collection or abscess.
07/31 US doppler
Hepatomegaly with diffuse fatty liver.
No evidence of cholelithiasis, gallbladder wall thickening or biliary tract dilatation.
Normal directional blood flow in the hepatic and portal veins. Cannot confirm splenic vein thrombosis.
08/05/24 US abdomen
1. Mild hepatic enlargement. Suggestion of diffuse fatty infiltration of liver.
2. No evidence of cholelithiasis or acute cholecystitis.
Prior GI Procedures:
EGD: none
Colonoscopy: none
Assessment / Plan
-
Pt is a 18yo with admission 07/30 with reported rash and hives on buttock with increased redness and progressive weakness. On admission there was concern for cellulitis with multiple excoriated wounds, ulceration and bruising throughout her body and
sepsis with hypotension and tachycardia. She is also noted with multiple issue with hypokalemia, leukopenia, normocytic anemia with hbg down to 5.4 and iron studies not consistent with iron deficiency but folate deficiency with folate 2.2 with
B12 448 and severe vitamin D deficiency with level <12.8. She also has elevated LFT's with initial labs with bili 2.6, AST 90, ALT 21, alk phos 182 ,INR 1.23, and albumin 2.6. Drug screen + Opiates. abd imaging since admission with CT
chest/ab/pelvis with Trace effusion, hepatomegaly, severe fatty liver, nonocclusive splenic vein thrombosis and patent portal vein, soft tissue stranding in ischiorectal fossa fat, b/l right greater than left. Doppler US with HM, no
cholelithiasis, GBWT or biliary dilation, normal directional flow cannot confirm splenic vein thrombosis.US abdomen with mild hepatic enlargement, diffuse fatty liver, no cholelithiasis or acute cholecystitis.
-sepsis with hypotension/tachycardia on admission
-buttock cellulitis
-multiple bruising throughout
-elevated LFT's
-leukopenia
-normocytic anemia
-folate deficiency
-several vitamin D deficiency
-diarrhea
-hepatomegaly with severe fatty liver
-wt loss
PLAN:
etiology of symptoms related to related to folate, B12, vitamin D deficiency vs other
cont to replete
add CRP, ESR and fecal riley
agree with fecal fat, celiac testing
check stool studies including O+P testing
cont Pepcid
good nutrition
t/c eventual EGD/colon when improved with current issues
CT and US as noted some limitation without oral contrast
OP follow up for fatty liver
cont abx per ID
-
-
Thank you for consultation and allowing me to participate in the patient's care. Please call the continuing education instructor GI physician during the after hours with any questions or concerns.
--- NOTE | 2024-08-05 13:35 | W.PN.HOSP.TC ---
Addendum entered and electronically signed by Neil Mckeon DO 08/05/24 14:17:
CDI: Malnutrition is present despite BMI. Folate, B12 levels low, vitamin D deficiency noted, likely component of iron deficiency with her anemia. Suspicion for malabsorptive process is high, adequate home diet per history
Original Note:
Today's Communication/Plan
-
Order 1 unit PRBC for symptomatic anemia (tachycardia)
RUQ ultrasound
Follow-up malabsorptive studies
GI consult
Continue Keflex through 08/08
Assessment / Plan
Assessment / Plan
#Symptomatic anemia
#Normocytic anemia
-Likely multifactorial secondary to folate and B12 deficiency; possible component of inflammatory anemia
-Status post 2 units of PRBC for initial hemoglobin 5.4; most recent hemoglobin 8.4
-Iron panel without evidence of iron deficiency; reticulocyte count 2 likely low in the context of B vitamin deficiency
-No obvious signs of bleeding, trace amounts near her skin ulcers on the buttocks
-Hemoglobin today 7.6, significantly tachycardic, suspect still symptomatic from her anemia
-Ordered an additional 1 unit PRBC for today, continue to trend CBC
-Continue to monitor vital signs and for symptoms of anemia
#Malnutrition
-Suspect that this may be related to underlying malabsorptive process
-Multiple vitamin and mineral deficiencies seen on admission
-Dietary history adequate for multiple sources of nutrition, variety
-Currently on vitamin supplements with vitamin C, B vitamins, multivitamin
-Ordered celiac panel, fecal fat, fecal elastase to assess for underlying malabsorptive process
-Ordered stool WBC and calprotectin to assess for underlying IBD
-Encourage p.o. intake for now
-GI consulted
#Elevated LFTs
-Unclear etiology, imaging previously showed enlarged liver suspicious for steatosis
-ALT levels normal, AST elevated in the 100s (8 X ALT), elevated T. bili and D bili
-LFTs have been generally stable though persistently elevated
-Will order RUQ ultrasound to further assess
-GI consulted as above
#Nausea and vomiting
-Has had on occasion but was significant today
-Had nausea and vomiting following her morning meds
-Zofran ordered, norovirus testing ordered
#Septic shock secondary to bilateral gluteal cellulitis with skin ulceration
-Status post vasopressor course with Levophed, has been hemodynamically stable since
-CT A/P was negative for deep tissue infection or abscess
-ID following, has been improving on IV Zosyn; s/p vancomycin, negative MRSA test
-Was evaluated by surgery, recommended no surgical intervention at this time
-Blood cultures pending final results, have been negative after 48 hours
-Antibiotics de-escalated from Unasyn to Keflex, last day ABX 08/08
-Continue to trend CBC and temperature curve
-Continue with as needed analgesia
#Leukopenia
-Likely secondary to B vitamin deficiency and reactive component with sepsis
-Resolved after vitamin replacement
#Bruising
-Patient complaining of generalized discomfort, noted to have bruising along extremities
-Question if she has some underlying coagulopathy
-On arrival PT 15.8, APTT 40.5
-Repeat coags WNL
#Nonocclusive splenic vein thrombus
-Noted on arterial Doppler ultrasound
-Evaluated by heme/onc, recommended against anticoagulation
#Vitamin D deficiency
-Was started on vitamin D supplement here
#Mild metabolic acidosis
-Likely secondary to infection, was started on oral bicarbonate previously here
-Continue to trend BMP, expect this to improve with elimination of infection
#Hair loss
-Cannot rule out underlying inflammatory condition/autoimmunity
-Per the patient it started about 2 months ago, with hair falling out
-TSH levels were normal, no other obvious metabolic cause
-Should follow-up with director market research as outpatient
#Hepatomegaly
-With her obesity, suspicion high for NAFLD
-Will need to follow-up with gastroenterology as outpatient
#Stage II ulcerative lesions of the buttocks
-Likely related to pressure, also possibly contamination from incontinence
-Wound care following
#Musculoskeletal chest wall pain
-Has generalized discomfort, especially with palpation
-Reproducible pain to the left chest, ordered lidocaine patch
#Weakness
-Patient states roughly 2 months ago she developed difficulty with walking upstairs and falls
-Still seems fairly weak, has not been out of bed much in the hospital
-CK level normal
DVT prophylaxis: SCDs
Diet: Regular
CODE STATUS: Full code
Anticipated Discharge: 24 - 48 hours
Subjective/Interval History
-
Date of Service: August 05, 2024
Seen and examined at the bedside. No acute events reported overnight. AFVSS this morning though persistently tachycardic. [employer] #[id number] assisted with translation
I spoke with the patient in more regards to her history. Denies any previous medical or surgical diagnoses. Denies any family history of significant issues other than her mother with diabetes. Mentions that in the past she has had diarrhea
intermittently. I asked her if she had days where she has had diarrhea upwards of 10 times in a day, and she states on occasion. Also mentions that she has seen blood in her stool previously though not frequently. Denies any alcohol usage.
Denies previous pregnancies or living children
Otherwise she states she is feeling better. Denies any acute complaints.
Tachycardic at 130/min this morning, hemoglobin 7.6. Suspect she is still has a degree of symptomatic anemia
Objective Data
-
Labs:
Laboratory Results
08/05/24
06:37
WBC 5.9
Hgb 7.6 L
Hct 24.4 L
Plt Count 313
Sodium 138
Potassium 3.3 L
Chloride 110 H
Carbon Dioxide 23
BUN 2 L
Creatinine 0.4 L
Glucose 94
Calcium 7.5 L
Total Bilirubin 1.8 H
AST 111 H
ALT 19
Alkaline Phosphatase 202 H
Vital Signs:
Vital Signs
Temp Pulse Resp BP Pulse Ox
98.4 F 107 16 136/95 99
08/05/24 13:14 08/05/24 13:14 08/05/24 13:14 08/05/24 13:14 08/05/24 13:14
I&O
08/04/24 08/05/24 08/06/24
06:59 06:59 06:59
Intake Total 2160 / 2160 0 / 0
Output Total 1575 / 1575 2875 / 2875
Balance -1575 / -1575 -715 / -715 0 / 0
Review of Systems
-
History Source: Patient
All other systems: Reviewed and negative
Physical Exam
-
General: Well Developed, No Apparent Distress, Comfortable and Obese
HEENT: Normocephalic, Atraumatic, Moist Mucous Membranes and Anicteric
Respiratory: Clear to Auscultation and Non Labored Respirations
Cardiac: Regular Rhythm and S1/S2; Negative Murmur, Rub or Gallop
GI: Soft, Nondistended, Normal Bowel Sounds and Tender (Mild, generalized, no peritoneal sign)
Musculoskeletal: No Clubbing, No Cyanosis and No Edema
Skin: Warm and Dry; Negative Rash
Neuro: AO x 3 and Nonfocal/Grossly Intact
Psych: Calm
Data Reviewed
-
Labs: Labs Reviewed by me, Discussed with Physician (Gastroenterology) and Discussed with Patient
--- NOTE | 2024-08-05 14:04 | PN.CDI ---
CDI
- -
CDI:
Physician Documentation Request
Admit Date: 07/30/24 17:02
Dear Doctor Mike,
Hospitalist progress notes 08/02 states 'normocytic anemia-Likely multifactorial secondary to malnutrition, folate and B12 deficiency'
To ensure the quality of the medical record, based on the above information and the recognized standards for malnutrition , could you please verify in your progress notes which of the following responses best reflects the patient's nutritional
status:
(Specify severity) Malnutrition is/was present and is a clinical diagnosis (please provide additional support in the medical record)
No nutritional deficiency
Other (please specify)
[place] Criteria ([facility] Hospitalist 2017)
2 or more criteria must be present for either
non severe or severe malnutrition
Note that the criteria differs related to the
presence of an acute or chronic illness
Acute Illness Chronic Illness
Energy Intake Non Severe: <75% for >7 days Non Severe: <75% for >1 month
Severe: <50% for >5 days Severe: <75% for >1 month
Weight Loss Non Severe: 1-2% over 1 week Non Severe: 5% over 1 month
5% over 1 month 7.5% over 3 months
7.5% over 3 months 10% over 6 months
1 year N/A 20% over 1 year
Severe: >2% over 1 week Severe: >5% over 1 month
>5% over 1 month >7.5% over 3 months
>7.5% over 3 months >10% over 6 months
1 year N/A >20% over 1 year
Body Fat Non Severe: Mild Decrease Non Severe: Mild Loss
Severe: Moderate Decrease Severe: Severe Loss
Muscle Mass Non Severe: Mild Decrease Non Severe: Mild Loss
Severe: Moderate Decrease Severe: Severe Loss
Fluid Accumulation Non Severe: Mild Accumulation Non Severe: Mild Accumulation
Severe: Moderate to severe Severe: Moderate to severe
accumulation accumulation
Reduced Record Librarian Strength Non Severe: N/A Non Severe: N/A
Severe: Measurably reduced Severe: Measurably reduced
Use of terms such as suspected, likely, concern for, or probable (associated with a specific diagnosis that is being evaluated, monitored, or treated as if it exists) are acceptable and can be coded in the inpatient setting, when documented at the
time of discharge.
Thank you,
Ladi Meadows RN, BSN
CDI Specialist
tiger text
Please use your independent medical judgment in providing your response.
--- NOTE | 2024-08-05 14:18 | CM ---
Reviewed the chart notes. Patient order 1 unit PRBC for symptomatic anemia (tachycardia). CM continues to be available to patient/family and is monitoring medical plan for needs at discharge.
Plan: Discharge plans will depend on patient's progress. Barrier to assistance is that the patient has no insurance. Patient has [facility] information brochure in [place].
--- NOTE | 2024-08-05 15:47 | PTCARENOTE ---
Blood not started by this RN, primary RN was called in RR on a patient in a different room as this blood finished, this RN flushed midline IV and assessed post transfusion. VSS, blood tubing properly disposed of in red biohazard bag. Primary RN
updated on blood being finished.
[2024-08-06] VITALS (7 sets, daily range): BP systolic 127–154; BP diastolic 84–114; BMI 32.5
[2024-08-06] MEDS: TYLENOL 650 MG PO ×2 (02:19→20:09)
--- NOTE | 2024-08-06 05:08 | PTCARENOTE ---
Pt with HR on 130's, asymptomatic. Low grade fever noted with T 100.9 and treated with PRN tylenol and ice packs, + effect. HR down to pt's baseline.
[2024-08-06 09:42] LABS: % Basophils 0.3 % (0-2); % Eosinophils 2.3 % (0-6); % Immature Granulocytes 1.2 % (0-0.5); % Lymphocytes 21.7 % (20.5-51.1); % Neutrophils 67.5 % (42.2-75.2); Absolute Eosinophils 0.2 10^3/uL (0-0.7); Absolute Immature Granulocytes 0.1 10^3/uL (0-0.05); Absolute Lymphocytes 1.4 10^3/uL (1.2-3.4); Absolute Monocytes 0.5 10^3/uL (0.1-0.6); Absolute Neutrophils 4.4 10^3/uL (1.4-6.5); Hematocrit 27.6 % (37.0-47.0); Hemoglobin 8.8 g/dL (12.0-16.0); Mean Corp Hgb Conc. 31.9 g/dL (33.0-37.0); Mean Corpuscular Hgb 27.5 pg (27.0-31.0); Mean Corpuscular Volume 86.3 fL (81.0-99.0); Mean Platelet Volume 9.2 fL (7.4-10.4); Nucleated Red Blood Cells % 0.3 %; Platelet Count 311 10^3/uL (130-400); Red Cell Dist. Width 18.2 % (11.5-14.5); White Blood Cell Count 6.5 10^3/uL (4.8-10.8)
[2024-08-06] MEDS: FEOSOL 325 MG PO (10:10)
[2024-08-06] MEDS: VITAMIN C 1000 MG PO (10:10)
[2024-08-06] MEDS: SODIUM BICARBONATE 650 MG PO ×3 (10:10→21:24)
[2024-08-06] MEDS: LIDOCAINE 4% PATCH 1 PATCH TOPICAL (10:10)
[2024-08-06] MEDS: PEPCID 20 MG PO (10:10)
[2024-08-06] MEDS: FOLVITE 1 MG PO (10:10)
[2024-08-06] MEDS: VITAMIN B1 100 MG PO (10:10)
[2024-08-06] MEDS: KEFLEX 500 MG PO ×4 (10:10→21:24)
[2024-08-06] MEDS: THERAGRAN 1 TABLET PO (10:10)
[2024-08-06] MEDS: VITAMIN B-12 1000 MCG PO (10:11)
[2024-08-06] MEDS: ROXICODONE 5 MG PO ×2 (10:24→20:10)
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
[2024-08-06 10:42] LABS: Blood Urea Nitrogen 4 mg/dl (7-17); Calcium 7.4 mg/dl (8.4-10.2); Carbon Dioxide 27 mmol/L (22-30); Chloride 108 mmol/L (98-107); Estimated Creatinine Clearance > 125 ml/min; Glucose 76 mg/dl (70-99); Magnesium 1.7 mg/dl (1.6-2.3); Potassium 3.2 mmol/L (3.5-5.1); Sodium 140 mmol/L (135-145); eGFR > 60.00
[2024-08-06 10:43] LABS: Hepatitis B Surface Antigen Negative (Negative)
[2024-08-06 11:00] LABS: Hepatitis A Antibody, Total Positive (Negative); Hepatitis B Core Ab, Total Negative (Negative); Hepatitis B Surface Antibody Negative; Hepatitis C Antibody Negative (Negative)
--- NOTE | 2024-08-06 12:10 | CM ---
Reviewed the chart notes and spoke with Kenyatta MARIE ([phone]). CM provided Kenyatta with Manager [employer] Hemodialysis Technician's contact information from visit on Friday. Card is in chart. CM continues to be available to patient/family
and is monitoring medical plan for needs at discharge.
Plan: Discharge plans will depend on the patient's progress.
[2024-08-06 12:33] LABS: Erythrocyte Sed Rate 51 mm/hour (0-20)
[2024-08-06] MEDS: PROTONIX 40 MG PO (13:53)
[2024-08-06] MEDS: KCL ELIXIR 40 MEQ PO (13:53)
--- NOTE | 2024-08-06 14:04 | W.PN.HOSP.TC ---
Today's Communication/Plan
-
Start PPI
Speak with ID about recurrent fevers, continue Keflex for now
Continue vitamin supplementation and follow-up vitamin C levels
Follow-up malabsorptive workup
Check HAV IgM
Out of bed
Assessment / Plan
Assessment / Plan
#Severe malnutrition with vitamin deficiencies
#Presumed scurvy
-Suspect that this may be related to underlying malabsorptive process
-Multiple vitamin and mineral deficiencies seen on admission
-Dietary history adequate for multiple sources of nutrition, variety
-Currently on vitamin supplements with vitamin C, B vitamins, multivitamin
-Ordered celiac panel, fecal fat, fecal elastase to assess for underlying malabsorptive process
-Ordered stool WBC and calprotectin to assess for underlying IBD
Plan
-Continue with vitamin supplements and promoting oral intake
-Follow-up malabsorptive studies
-Follow-up vitamin C levels
#Elevated LFTs
#Positive hepatitis A antibody
#Hepatomegaly
-Unclear etiology, imaging previously showed enlarged liver suspicious for steatosis
-ALT levels normal, AST elevated in the 100s (8 X ALT), elevated T. bili and D bili
-LFTs have been generally stable though persistently elevated
-RUQ ultrasound showed normal liver contour, significant signs of steatosis
-Hepatitis panel did show hepatitis A antibody positivity, unclear of IgG versus IgM
Plan
-Order hepatitis A IgM
-Continue to trend LFTs
#Abdomen pain, nausea and vomiting
-Has had on occasion but was significant today
-Had nausea and vomiting following her morning meds
-Zofran ordered, norovirus and C. difficile testing negative
-Question if she has gastritis
Plan
-Ordering PPI empirically now
-Monitor clinically
#Sinus tachycardia
-Suspect that this is related to anemia, vitamin deficiency, pain, deconditioning
-Has been persistently tachycardic here, up to 130/min; no hypotension
-Has not had any symptoms, transiently improved to low 100s
-Will encourage out of bed, work with PT and OT
-Monitor vitals
#Symptomatic anemia
#Normocytic anemia
-Likely multifactorial secondary to folate and B12 deficiency; possible component of inflammatory anemia
-Iron panel without evidence of iron deficiency; reticulocyte count 2 likely low in the context of B vitamin deficiency
-Presented with hemoglobin 5.4; s/p 3 units of PRBC here with adequate response
-No obvious signs of bleeding, trace amounts near her skin ulcers on the buttocks
-Continue to trend CBC, supportive transfusions as needed
#Septic shock secondary to bilateral gluteal cellulitis with skin ulceration
-Status post vasopressor course with Levophed, has been hemodynamically stable since
-CT A/P was negative for deep tissue infection or abscess; s/p vancomycin and Zosyn course
-Blood cultures pending final results, have been negative after 48 hours
-Antibiotics de-escalated from Unasyn to Keflex, last day Abx 08/08
-Continue to trend CBC and temperature curve
-Will speak to ID about recurrence of low-grade fevers
#Bruising
-Patient complaining of generalized discomfort, noted to have bruising along extremities
-On arrival PT 15.8, APTT 40.5, repeat coags WNL
-Suspect that this is related to scurvy/vitamin C deficiency and compromised integrity of connective tissue
-Concerns were raised about possible abuse/sex trafficking, suspicion on lower side as of now
#Nonocclusive splenic vein thrombus
-Noted on arterial Doppler ultrasound
-Evaluated by heme/onc, recommended against anticoagulation
#Vitamin D deficiency
-Was started on vitamin D supplement here
#Mild metabolic acidosis
-Likely secondary to infection, was started on oral bicarbonate previously here
-Continue to trend BMP, expect this to improve with elimination of infection
#Hair loss
-Cannot rule out underlying inflammatory condition/autoimmunity
-Per the patient it started about 2 months ago, with hair falling out
-TSH levels were normal, no other obvious metabolic cause
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
#Stage II ulcerative lesions of the buttocks
-Likely related to pressure, also possibly contamination from incontinence
-Wound care following
#Musculoskeletal chest wall pain
-Has generalized discomfort, especially with palpation
-Reproducible pain to the left chest, ordered lidocaine patch
#Weakness
-Patient states roughly 2 months ago she developed difficulty with walking upstairs and falls
-Still seems fairly weak, has not been out of bed much in the hospital
-CK level normal
#Leukopenia
-Likely secondary to B vitamin deficiency and reactive component with sepsis
-Resolved after vitamin replacement
DVT prophylaxis: SCDs
Diet: Regular
CODE STATUS: Full code
Anticipated Discharge: > 48 hours
Subjective/Interval History
-
Date of Service: August 06, 2024
Seen and examined at the bedside. No acute events reported overnight. Remains tachycardic, fever about 100.9 �F this morning. Otherwise hemodynamically stable.
Malabsorption workup labs still pending. Hepatitis serology returned positive for hepatitis A antibody. As of this morning complaining of some upper abdominal pain.
She denies any other acute complaints
Objective Data
-
Labs:
Laboratory Results
08/06/24
09:20
WBC 6.5
Hgb 8.8 L
Hct 27.6 L
Plt Count 311
Sodium 140
Potassium 3.2 L
Chloride 108 H
Carbon Dioxide 27
BUN 4 L
Creatinine 0.4 L
Glucose 76
Calcium 7.4 L
Vital Signs:
Vital Signs
Temp Pulse Resp BP Pulse Ox
97.6 F 128 18 144/99 100
08/06/24 11:15 08/06/24 11:15 08/06/24 11:15 08/06/24 11:15 08/06/24 13:21
I&O
08/05/24 08/06/24 08/07/24
06:59 06:59 06:59
Intake Total 2160 / 2160 1470 / 1470
Output Total 2875 / 2875 1695 / 1695
Balance -715 / -715 -225 / -225
Review of Systems
-
History Source: Patient
All other systems: Reviewed and negative
Physical Exam
-
General: Well Developed, No Apparent Distress, Comfortable and Obese
HEENT: Normocephalic, Atraumatic, Moist Mucous Membranes, Anicteric, PERRLA and Other (Generalized thinning of the hair)
Respiratory: Clear to Auscultation and Non Labored Respirations
Cardiac: Regular Rhythm and S1/S2; Negative Murmur, Rub or Gallop
GI: Soft, Nondistended, Normal Bowel Sounds and Tender (Upper abdomen, no peritoneal signs)
Musculoskeletal: No Clubbing, No Cyanosis and No Edema
Skin: Warm, Dry and Normal Turgor; Negative Rash or Jaundice
Neuro: AO x 3 and Nonfocal/Grossly Intact
Psych: Calm
Data Reviewed
-
Labs: Labs Reviewed by me, Discussed with Physician (Gastroenterology) and Discussed with Patient
[2024-08-06] MEDS: KCL 40 MEQ PO (15:58)
--- NOTE | 2024-08-06 16:00 | PTCARENOTE ---
Patient ordered K elixir for potassium of 3.2 on this AM's labs, patient stating she cannot tolerate elixir, gagging with intake. MD made aware, 40 meq PO potassium pill ordered per MD, told this RN to hold 1800 dose of K elixir. Patient denies
nausea and has had no episode of emesis this shift, tolerating PO pills and intake. B/L buttock wound care completed with assistance of tech. Patient with matted bun on top of head, patient requested this RN cut off bun. Bun cut off with assistance
of Peg BINGHAM. STD panel ordered per at request of [employer] customer account representative, verbal order taken by this RN from MD stating okay to draw labs from food d/t patient's extensive B/L upper and lower extremity bruising. Chlamydia vaginal swab
obtained by this RN and sent to lab.
[2024-08-06 17:12] LABS: HIV Combo Negative (Negative)
--- NOTE | 2024-08-06 18:00 | PTCARENOTE ---
Patient's HR 120s-130s sinus tach on monitor throughout shift. Patient states no concerns throughout shift, good oral intake/appetite, hgb 8.8 on this AM's labs. MD made aware, LR at 100ml/hr ordered per MD.
[2024-08-06] MEDS: LR 1000 IV (18:35)
[2024-08-06 23:47] LABS: Endomysial IgA Antibody Titer <1:10 (<1:10)
[2024-08-07 03:20] VITALS: BP 143/81
[2024-08-07 05:39] VITALS: BMI 32.5
[2024-08-07 06:24] LABS: % Basophils 0.2 % (0-2); % Eosinophils 3.8 % (0-6); % Lymphocytes 22.7 % (20.5-51.1); % Monocytes 6.7 % (1.7-9.3); % Neutrophils 65.6 % (42.2-75.2); Absolute Eosinophils 0.2 10^3/uL (0-0.7); Absolute Immature Granulocytes 0.1 10^3/uL (0-0.05); Absolute Lymphocytes 1.2 10^3/uL (1.2-3.4); Absolute Monocytes 0.4 10^3/uL (0.1-0.6); Absolute Neutrophils 3.4 10^3/uL (1.4-6.5); Hematocrit 27.7 % (37.0-47.0); Hemoglobin 8.8 g/dL (12.0-16.0); Mean Corp Hgb Conc. 31.8 g/dL (33.0-37.0); Mean Corpuscular Volume 88.2 fL (81.0-99.0); Mean Platelet Volume 9.1 fL (7.4-10.4); Nucleated Red Blood Cells % 0 %; Platelet Count 312 10^3/uL (130-400); Red Blood Cell Count 3.14 10^6/uL (4.20-5.40); Red Cell Dist. Width 18.6 % (11.5-14.5); White Blood Cell Count 5.2 10^3/uL (4.8-10.8)
[2024-08-07] MEDS: LR 1000 IV (06:26)
[2024-08-07 06:45] LABS: ALT (SGPT) 16 U/L (0-35); AST (SGOT) 50 U/L (14-36); Albumin 2.2 g/dl (3.5-5.0); Alkaline Phosphatase 185 U/L (38-126); Blood Urea Nitrogen 4 mg/dl (7-17); Calcium 7.5 mg/dl (8.4-10.2); Carbon Dioxide 25 mmol/L (22-30); Chloride 107 mmol/L (98-107); Direct Bilirubin 1.3 mg/dl (0.0-0.4); Estimated Creatinine Clearance > 125 ml/min; Glucose 77 mg/dl (70-99); Potassium 3.6 mmol/L (3.5-5.1); Sodium 138 mmol/L (135-145); Total Bilirubin 1.9 mg/dl (0.2-1.3); Total Protein 5.6 g/dl (6.3-8.2); eGFR > 60.00
[2024-08-07 07:16] LABS: Erythrocyte Sed Rate 48 mm/hour (0-20)
--- NOTE | 2024-08-07 07:36 | W.PN.GI.CBS2 ---
Today's Communication / Plan
-
as per plan
Assessment / Plan
-
Pt is a 18yo with admission 07/30 with reported rash and hives on buttock with increased redness and progressive weakness. On admission there was concern for cellulitis with multiple excoriated wounds, ulceration and bruising throughout her body and
sepsis with hypotension and tachycardia. She is also noted with multiple issue with hypokalemia, leukopenia, normocytic anemia with hbg down to 5.4 and iron studies not consistent with iron deficiency but folate deficiency with folate 2.2 with
B12 448 and severe vitamin D deficiency with level <12.8. She also has elevated LFT's with initial labs with bili 2.6, AST 90, ALT 21, alk phos 182 ,INR 1.23, and albumin 2.6. Drug screen + Opiates. abd imaging since admission with CT
chest/ab/pelvis with Trace effusion, hepatomegaly, severe fatty liver, nonocclusive splenic vein thrombosis and patent portal vein, soft tissue stranding in ischiorectal fossa fat, b/l right greater than left. Doppler US with HM, no
cholelithiasis, GBWT or biliary dilation, normal directional flow cannot confirm splenic vein thrombosis.US abdomen with mild hepatic enlargement, diffuse fatty liver, no cholelithiasis or acute cholecystitis.
Impression:
-sepsis with hypotension/tachycardia on admission
-buttock cellulitis
-multiple bruising throughout
-elevated LFT's
-non occlusive splenic vein thrombosis-> no AC per Heme.
-leukopenia
-normocytic anemia
-folate deficiency
-several vitamin D deficiency
-diarrhea-> solid BM today
-N/V-tolerating solid diet now
-hepatomegaly with severe fatty liver
-wt loss
PLAN:
etiology of symptoms related to multiple nutritional deficiencies/possible scurvy
celiac serologies, fecal fats, syphilis pending
stool WBC negative
hepatitis B, C negative; Hep A Ab total (+), IgM pending
continue Pepcid
good nutrition
OP follow up for fatty liver
continue antibiotics per ID -- consider blood, urine cultures with persistent low grade fevers
to consider outpatient EGD/[place] when stable and if sx persist.
Subjective
Subjective
Date of Service: August 07, 2024
Patient denies feeling fever or chills, had fever (100.4) yesterday but today improved (98.4)
No nausea, vomiting currently. She does c/o mild generalized abdominal pain. No diarrhea.
She has not been eating much, but when asked what she wanted to eat she expressed excitement about eating tamales.
Objective
Data Reviewed
Laboratory Data:
Laboratory Results
08/07/24 06:08
08/07/24 06:08
Laboratory Results
PT 14.6 Sec (11.4-14.6) 08/03/24 05:03
INR 1.11 08/03/24 05:03
APTT 34.3 Sec (23.4-35.0) 08/03/24 05:03
Phosphorus 3.6 mg/dl (2.5-4.5) 08/01/24 05:29
Magnesium 1.7 mg/dl (1.6-2.3) 08/06/24 09:20
Total Bilirubin 1.9 mg/dl (0.2-1.3) H 08/07/24 06:08
AST 50 U/L (14-36) H 08/07/24 06:08
ALT 16 U/L (0-35) 08/07/24 06:08
Alkaline Phosphatase 185 U/L (38-126) H 08/07/24 06:08
Vital Signs and I&O:
Vital Signs
Temp Pulse Resp BP Pulse Ox
98.4 F 126 18 143/81 100
08/07/24 03:20 08/07/24 03:20 08/07/24 03:20 08/07/24 03:20 08/07/24 03:20
I&O
08/06/24 08/07/24 08/08/24
06:59 06:59 06:59
Intake Total 1470 / 1470 2520 / 2520
Output Total 1695 / 1695 800 / 800
Balance -225 / -225 1720 / 1720
Physical Exam
Physical Exam
Cardiology: Normal Sinus Rhythm and Other (+tachycardia)
Pulmonary: Clear
GI: Soft, Non Distended, Non Tender and Normal Bowel Sounds
Extremities: Edema (+bilateral lower extremity edema), Warm and Other (+diffuse ecchymoses )
[2024-08-07 07:45] VITALS: BP 144/81
[2024-08-07] MEDS: FOLVITE 1 MG PO (10:02)
[2024-08-07] MEDS: KEFLEX 500 MG PO ×4 (10:03→22:46)
[2024-08-07] MEDS: VITAMIN B1 100 MG PO (10:03)
[2024-08-07] MEDS: THERAGRAN 1 TABLET PO (10:03)
[2024-08-07] MEDS: SODIUM BICARBONATE 650 MG PO ×3 (10:03→22:46)
[2024-08-07] MEDS: VITAMIN C 1000 MG PO (10:03)
[2024-08-07] MEDS: VITAMIN B-12 1000 MCG PO (10:03)
[2024-08-07] MEDS: PEPCID 20 MG PO (10:04)
[2024-08-07] MEDS: LIDOCAINE 4% PATCH TOPICAL (10:04)
[2024-08-07] MEDS: FEOSOL 325 MG PO (10:04)
[2024-08-07 11:05] VITALS: BP 148/76
[2024-08-07 11:48] LABS: COVID-19 Antigen Negative (Negative)
--- NOTE | 2024-08-07 13:44 | W.PN.HOSP.TC ---
Today's Communication/Plan
-
Repeat infectious workup
Continue PPI
Continue Keflex
Order echocardiogram
CTA thorax to rule out PE
Cardiology consult for tachycardia
Assessment / Plan
Assessment / Plan
#Severe malnutrition with vitamin deficiencies
#Presumed scurvy
-Suspect that this may be related to underlying malabsorptive process
-Multiple vitamin and mineral deficiencies seen on admission
-Dietary history adequate for multiple sources of nutrition, variety
-Currently on vitamin supplements with vitamin C, B vitamins, multivitamin
-Ordered celiac panel, fecal fat, fecal elastase to assess for underlying malabsorptive process
-Ordered stool WBC and calprotectin to assess for underlying IBD
-Continue with vitamin supplements and promoting oral intake
-Follow-up malabsorptive studies
-Follow-up vitamin C levels
#Elevated LFTs
#Positive hepatitis A antibody
#Hepatomegaly
-Unclear etiology, imaging previously showed enlarged liver suspicious for steatosis
-ALT levels normal, AST elevated in the 100s (8 X ALT), elevated T. bili and D bili
-LFTs have been generally stable though persistently elevated
-RUQ ultrasound showed normal liver contour, significant signs of steatosis
-Hepatitis panel did show hepatitis A antibody positivity, unclear of IgG versus IgM though likely old infection
-Follow-up HAV IgM levels, trend LFTs
#Abdomen pain, nausea and vomiting
-Has had on occasion but was significant today
-Had nausea and vomiting following her morning meds
-Zofran ordered, norovirus and C. difficile testing negative
-Question if she has gastritis, though did not improve with daily PPI
-CT C/A/P today without any obvious findings
-Continue with daily PPI therapy
#Sinus tachycardia
-Suspect that this is related to anemia, vitamin deficiency, pain, deconditioning
-Has been persistently tachycardic here, up to 130/min; no hypotension
-Has not had any symptoms, transiently improved to low 100s
-Will encourage out of bed, work with PT and OT
-Worsened today with heart rate up to 160, EKG pending
-Ordered troponin levels, follow-up ECG, cardiology consult
-CTA to rule out pulmonary emboli
#Symptomatic anemia
#Normocytic anemia
-Likely multifactorial secondary to folate and B12 deficiency; possible component of inflammatory anemia
-Iron panel without evidence of iron deficiency; reticulocyte count 2 likely low in the context of B vitamin deficiency
-Presented with hemoglobin 5.4; s/p 3 units of PRBC here with adequate response
-No obvious signs of bleeding, trace amounts near her skin ulcers on the buttocks
-Continue to trend CBC, supportive transfusions as needed
#Septic shock secondary to bilateral gluteal cellulitis with skin ulceration
-Status post vasopressor course with Levophed, has been hemodynamically stable since
-CT A/P was negative for deep tissue infection or abscess; s/p vancomycin and Zosyn course
-Blood cultures pending final results, have been negative after 48 hours
-Antibiotics de-escalated from Unasyn to Keflex, last day Abx 08/08
-Continue to trend CBC and temperature curve
-Repeat blood cultures, UA with urine culture, viral panel due to recurrent fever
#Bruising
-Patient complaining of generalized discomfort, noted to have bruising along extremities
-On arrival PT 15.8, APTT 40.5, repeat coags WNL
-Suspect that this is related to scurvy/vitamin C deficiency and compromised integrity of connective tissue
-Concerns were raised about possible abuse/sex trafficking, suspicion on lower side as of now
#Nonocclusive splenic vein thrombus
-Noted on arterial Doppler ultrasound
-Evaluated by heme/onc, recommended against anticoagulation
#Vitamin D deficiency
-Was started on vitamin D supplement here
#Mild metabolic acidosis
-Likely secondary to infection, was started on oral bicarbonate previously here
-Continue to trend BMP, expect this to improve with elimination of infection
#Hair loss
-Cannot rule out underlying inflammatory condition/autoimmunity
-Per the patient it started about 2 months ago, with hair falling out
-TSH levels were normal, no other obvious metabolic cause
-Should follow-up with co founder and ceo as outpatient
#Stage II ulcerative lesions of the buttocks
-Likely related to pressure, also possibly contamination from incontinence
-Wound care following
#Musculoskeletal chest wall pain
-Has generalized discomfort, especially with palpation
-Reproducible pain to the left chest, ordered lidocaine patch
#Weakness
-Patient states roughly 2 months ago she developed difficulty with walking upstairs and falls
-Still seems fairly weak, has not been out of bed much in the hospital
-CK level normal
-Promote OOB
#Leukopenia
-Likely secondary to B vitamin deficiency and reactive component with sepsis
-Resolved after vitamin replacement
DVT prophylaxis: SCDs
Diet: Regular
CODE STATUS: Full code
Anticipated Discharge: > 48 hours
Subjective/Interval History
-
Date of Service: August 07, 2024
Seen and examined at the bedside. No acute events reported overnight. Tachycardic at 130 but otherwise hemodynamically stable and afebrile at time of my eval. [employer] used for interview
She still has significant pain in the upper abdomen, chest, as well as generally. Heart rate remains tachycardic, up to 160 per nursing. Fever of 100.4 �F overnight
Denied any new acute complaints
Objective Data
-
Labs:
Laboratory Results
08/07/24
06:08
WBC 5.2
Hgb 8.8 L
Hct 27.7 L
Plt Count 312
Sodium 138
Potassium 3.6
Chloride 107
Carbon Dioxide 25
BUN 4 L
Creatinine 0.4 L
Glucose 77
Calcium 7.5 L
Total Bilirubin 1.9 H
AST 50 H
ALT 16
Alkaline Phosphatase 185 H
Vital Signs:
Vital Signs
Temp Pulse Resp BP Pulse Ox
99.0 F 140 20 148/76 100
08/07/24 11:05 08/07/24 11:05 08/07/24 11:05 08/07/24 11:05 08/07/24 11:05
I&O
08/06/24 08/07/24 08/08/24
06:59 06:59 06:59
Intake Total 1470 / 1470 2520 / 2520
Output Total 1695 / 1695 800 / 800
Balance -225 / -225 1720 / 1720
Review of Systems
-
History Source: Patient
All other systems: Reviewed and negative
Physical Exam
-
General: Well Developed, Pain, Chills, Appears Chronically Ill and Obese
HEENT: Normocephalic, Atraumatic, Moist Mucous Membranes, Anicteric and Other (Head now shaved)
Respiratory: Clear to Auscultation and Non Labored Respirations
Cardiac: Regular Rhythm, S1/S2 and Tachycardic; Negative Murmur, Rub or Gallop
GI: Soft, Nondistended, Normal Bowel Sounds and Tender (Upper abdomen, no peritoneal sign)
Musculoskeletal: No Clubbing, No Cyanosis and No Edema
Skin: Warm, Dry, Normal Turgor and Other (Healing ulcers on bilateral buttocks, using blood from right buttocks; no purulence or fluctuance); Negative Rash
Neuro: AO x 3 and Nonfocal/Grossly Intact
Hematologic / Lymphatic: No Lymphadenopathy
Data Reviewed
-
CT Scan: Discussed with Nurse and Discussed with Patient
Medical Tests (Nuc Med, Echo etc): Discussed with Physician (Cardiology)
Labs: Labs Reviewed by me and Discussed with Patient
[2024-08-07 15:26] LABS: Troponin I < 0.012 ng/ml
[2024-08-07 15:30] VITALS: BP 141/77
[2024-08-07] MEDS: PROTONIX 40 MG PO (15:40)
[2024-08-07 19:13] VITALS: BP 119/63
[2024-08-07] MEDS: LR IV (21:03)
[2024-08-07 22:14] LABS: Troponin I < 0.012 ng/ml
[2024-08-07 22:34] LABS: Urine Albumin Trace (Neg - Trace); Urine Bilirubin Negative (Negative); Urine Character Clear (Clear); Urine Color Yellow; Urine Glucose Negative (Negative); Urine Ketone Negative (Negative); Urine Leukocyte Negative (Negative); Urine Nitrite Negative (Negative); Urine Occult Blood Trace (Negative); Urine Specific Gravity 1.005 (<1.030); Urine Urobilinogen Negative (Neg - 1+)
[2024-08-07] MEDS: TYLENOL 650 MG PO (22:46)
[2024-08-07 22:51] LABS: Fat, Fecal - Neutral Normal (Normal); Fat, Fecal - Split Normal (Normal)
[2024-08-07 23:17] LABS: Urine Red Blood Cell 0-2 /HPF (0-2); Urine Squamous Cell None seen /LPF (Few)
[2024-08-07 23:21] VITALS: BP 142/88
[2024-08-08 03:14] VITALS: BP 129/67
[2024-08-08 05:54] VITALS: BMI 32.3
[2024-08-08 07:45] VITALS: BP 145/79
[2024-08-08] MEDS: LIDOCAINE 4% PATCH 1 PATCH TOPICAL (08:38)
[2024-08-08] MEDS: PEPCID 20 MG PO (08:39)
[2024-08-08] MEDS: KEFLEX 500 MG PO ×4 (08:39→21:22)
[2024-08-08] MEDS: FEOSOL 325 MG PO (08:39)
[2024-08-08] MEDS: VITAMIN B1 100 MG PO (08:39)
[2024-08-08] MEDS: SODIUM BICARBONATE 650 MG PO ×3 (08:39→21:22)
[2024-08-08] MEDS: VITAMIN C 1000 MG PO (08:39)
[2024-08-08] MEDS: FOLVITE 1 MG PO (08:39)
[2024-08-08] MEDS: PROTONIX 40 MG PO (08:39)
[2024-08-08] MEDS: VITAMIN B-12 1000 MCG PO (08:39)
[2024-08-08] MEDS: THERAGRAN 1 TABLET PO (08:39)
[2024-08-08] MEDS: DRISDOL (VITAMIN D2) 50000 UNITS PO (09:12)
[2024-08-08 09:46] LABS: % Basophils 0.2 % (0-2); % Eosinophils 2.9 % (0-6); % Immature Granulocytes 0.7 % (0-0.5); % Lymphocytes 24.8 % (20.5-51.1); % Monocytes 6.4 % (1.7-9.3); Absolute Eosinophils 0.2 10^3/uL (0-0.7); Absolute Lymphocytes 1.4 10^3/uL (1.2-3.4); Absolute Monocytes 0.4 10^3/uL (0.1-0.6); Absolute Neutrophils 3.5 10^3/uL (1.4-6.5); Hematocrit 28.7 % (37.0-47.0); Hemoglobin 8.9 g/dL (12.0-16.0); Mean Corpuscular Hgb 27.6 pg (27.0-31.0); Mean Corpuscular Volume 89.1 fL (81.0-99.0); Mean Platelet Volume 8.8 fL (7.4-10.4); Nucleated Red Blood Cells % 0 %; Platelet Count 406 10^3/uL (130-400); Red Blood Cell Count 3.22 10^6/uL (4.20-5.40); Red Cell Dist. Width 18.6 % (11.5-14.5); White Blood Cell Count 5.5 10^3/uL (4.8-10.8)
[2024-08-08 10:01] LABS: ALT (SGPT) 19 U/L (0-35); AST (SGOT) 72 U/L (14-36); Albumin 2.2 g/dl (3.5-5.0); Alkaline Phosphatase 189 U/L (38-126); Blood Urea Nitrogen 4 mg/dl (7-17); Calcium 7.9 mg/dl (8.4-10.2); Carbon Dioxide 23 mmol/L (22-30); Chloride 109 mmol/L (98-107); Direct Bilirubin 1.4 mg/dl (0.0-0.4); Estimated Creatinine Clearance > 125 ml/min; Glucose 85 mg/dl (70-99); Magnesium 1.8 mg/dl (1.6-2.3); Potassium 3.3 mmol/L (3.5-5.1); Sodium 139 mmol/L (135-145); Total Bilirubin 2.1 mg/dl (0.2-1.3); Total Protein 5.5 g/dl (6.3-8.2); eGFR > 60.00
[2024-08-08 10:12] LABS: Troponin I < 0.012 ng/ml
[2024-08-08 10:34] LABS: Erythrocyte Sed Rate 50 mm/hour (0-20)
--- NOTE | 2024-08-08 10:49 | PTCARENOTE ---
Patient cdiff and norovirus negative, placed on standard precautions.
[2024-08-08] MEDS: KCL 270 MEQ IV (11:06)
[2024-08-08 11:25] VITALS: BP 136/80
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
[2024-08-08] MEDS: KCL 40 MEQ PO ×2 (15:20→21:21)
[2024-08-08 15:30] VITALS: BP 147/78
--- NOTE | 2024-08-08 17:16 | CON.CAR ---
Consultation
Consultation Request
Requesting Provider: Mike
Performing Provider: Tera
Reason for Consultation: Tachycardia
Medical History
-
Chief Complaint: Septic shock
History of Present Illness:
Patient is a 18-year-old female without a significant reported past medical history who initially presented due to rash and hives on buttock with associated weakness. On admission, patient was noted to have multiple excoriations, ulcerations,
bruising with evidence of septic shock (hypotension and tachycardia). Additionally, patient was noted to have severe malnutrition along with vitamin deficiencies, elevated LFTs with positive hep A antibody, diffuse abdominal pain, symptomatic
severe anemia, nonocclusive splenic vein thrombus, hair loss, leukopenia. Cardiology consulted due to sinus tachycardia. Patient's had waxing waning heart rate which has persisted above 100 bpm since admission. In discussion with patient, she
reports some episodes of palpitations which were chronic for her but no reported diagnosis of arrhythmia. She notes that when the heart rate is high, she experiences mild discomfort/aching in the chest which resolves as the heart rate comes down.
She notes no chest pain with other activity or exertion. Patient is a non-smoker, no alcohol, no illicits.
Past Medical History
Past Medical History: Other (See HPI)
Past Surgical History: None
Social History
Tobacco: Non-Smoker
Alcohol: None
Drug: None
Living: Other (With friends)
Employment: Employed
Family History
Family History: Reviewed & Not Pertinent
Allergies / Home Medications
Allergy/AdvReac Type Severity Reaction Status Date / Time
pineapple Allergy Unknown Verified 07/31/24 00:13
�Medication �Instructions �Recorded �Confirmed �Type
No Meds [No Current Medications] 07/30/24 07/30/24 History
Review of Systems
-
Unable to obtain full review of systems at this time due to: Language Barrier
History Source: Patient
All other systems: Negative unless noted
Constitutional: Weight Loss, Fatigue and Other (Hair loss)
EENT: No Symptoms
Respiratory: No Symptoms
Cardiac: Palpitations
Abdomen/GI: Abdominal Pain, Nausea, Diarrhea and Pain
: No Symptoms
Musculoskeletal: Joint Pain, Muscle Pain and Other (Weakness)
Skin: Rash and Other (Buttock abscess/pain)
Neurological: Weakness
Endocrine: No Symptoms
Hematologic/Lymphatic: Bruising
Physical Exam
Vital Signs
Temp Pulse Resp BP Pulse Ox
97.5 F 141 18 147/78 96
08/08/24 15:30 08/08/24 15:30 08/08/24 15:30 08/08/24 15:30 08/08/24 15:30
Lab Results
08/08/24 09:33
08/08/24 09:33
Troponin I < 0.012 ng/ml 08/08/24 09:33
Physical exam:
GENERAL: no acute distress
EYE: sclera anicteric
NECK: Supple, no JVD, no carotid bruit appreciated
ENT: normal nose, dry mucosal membranes
CARDIAC: Tachycardic rate and regular rhythm, +S1/S2, no murmur, rubs, or gallops
CHEST/PULMONARY: Normal effort, clear breath sounds
ABDOMEN: Soft, mild diffuse tenderness, not distended
NEUROLOGICAL: Alert and oriented x3
SKIN: Warm and dry, diffuse bruising, matted hair, overall poor hygiene/long nails
PSYCH: Normal and appropriate interaction.
Impression / Plan
-
PCP: None
Cardiology: None
.
TTE 08/07/2024: EF 50-55%, grossly normal LV RV size and function, mild AI, trace TR PASP 20-25 mmHg
.
Assessment:
Tachycardia, sinus, minimally symptomatic
� Telemetry demonstrating what appears to be sinus tachycardia with rate variation with appropriate increase and decrease
� Multitude of factors which may contribute including ongoing infection, pain, concern for VTE, anemia, vitamin deficiency, deconditioning
� Echocardiogram noted as above
� EKG without significant ST-T abnormality, troponin negative
� CT chest subtle pulmonary edema, no evidence of PE; DVT prophylaxis with SCDs
Septic shock secondary to bilateral gluteal cellulitis with skin ulceration, improving
Symptomatic anemia
Severe vitamin deficiencies with likely malabsorption in the setting of malnutrition
� Ongoing GI workup
Positive hep A antibody
Hepatomegaly
Nonocclusive splenic vein thrombus
Plan:
� Supportive care in the setting of multitude of factors which may play a role in tachycardia including infection, deficiencies, anemia, deconditioning.
� Echocardiogram showing normal (grossly) LV RV function without significant valvular disease CT scan without evidence of PE however mild pulmonary edema. Patient not hypoxic. Consider single dose of Lasix for diuresis monitor response however
would recommend overall conservative therapy in the setting of her multiple issues as previously noted
� Monitor on telemetry
� Repeat electrolytes with goal potassium greater than 4, magnesium greater than 2
� AM EKG
� Will follow
Discussed with nursing
Data Reviewed
-
EKG: Tracing Personally Visualized and interpreted
Radiology: Report Reviewed by me
CT Scan: Report Reviewed by me
Medical Tests (Nuc Med, Echo etc): Report Reviewed by me
Labs: Labs Reviewed by me
Old Records: Reviewed
[2024-08-08 19:24] VITALS: BP 139/80
[2024-08-08 23:23] VITALS: BP 141/89
[2024-08-09] VITALS (7 sets, daily range): BP systolic 124–146; BP diastolic 78–93; PULSE 145; BMI 32.7
[2024-08-09 05:59] LABS: % Basophils 0.2 % (0-2); % Eosinophils 2.6 % (0-6); % Immature Granulocytes 0.6 % (0-0.5); % Monocytes 7.5 % (1.7-9.3); % Neutrophils 64.1 % (42.2-75.2); Absolute Eosinophils 0.2 10^3/uL (0-0.7); Absolute Lymphocytes 1.5 10^3/uL (1.2-3.4); Absolute Monocytes 0.5 10^3/uL (0.1-0.6); Hematocrit 26.5 % (37.0-47.0); Hemoglobin 8.2 g/dL (12.0-16.0); Mean Corp Hgb Conc. 30.9 g/dL (33.0-37.0); Mean Corpuscular Hgb 27.6 pg (27.0-31.0); Mean Corpuscular Volume 89.2 fL (81.0-99.0); Mean Platelet Volume 8.9 fL (7.4-10.4); Nucleated Red Blood Cells % 0 %; Platelet Count 373 10^3/uL (130-400); Red Blood Cell Count 2.97 10^6/uL (4.20-5.40); Red Cell Dist. Width 18.8 % (11.5-14.5); White Blood Cell Count 6.2 10^3/uL (4.8-10.8)
[2024-08-09 06:25] LABS: Blood Urea Nitrogen 5 mg/dl (7-17); Calcium 7.1 mg/dl (8.4-10.2); Carbon Dioxide 23 mmol/L (22-30); Chloride 110 mmol/L (98-107); Estimated Creatinine Clearance > 125 ml/min; Glucose 81 mg/dl (70-99); Potassium 3.9 mmol/L (3.5-5.1); Sodium 140 mmol/L (135-145); eGFR > 60.00
[2024-08-09] MEDS: VITAMIN B-12 1000 MCG PO (08:58)
[2024-08-09] MEDS: SODIUM BICARBONATE 650 MG PO ×3 (08:58→22:01)
[2024-08-09] MEDS: FEOSOL 325 MG PO (08:58)
[2024-08-09] MEDS: VITAMIN C 1000 MG PO (08:58)
[2024-08-09] MEDS: LIDOCAINE 4% PATCH TOPICAL ×2 (08:58→09:29)
[2024-08-09] MEDS: FOLVITE 1 MG PO (08:58)
[2024-08-09] MEDS: VITAMIN B1 100 MG PO (08:58)
[2024-08-09] MEDS: PROTONIX 40 MG PO (08:58)
[2024-08-09] MEDS: THERAGRAN 1 TABLET PO (08:59)
[2024-08-09] MEDS: PEPCID 20 MG PO (08:59)
--- NOTE | 2024-08-09 10:45 | W.PN.CARDCBS ---
Today's Communication / Plan
-
Continues with sinus tachycardia that is multifactorial. She also appears very anxious. Would not overtreat at this time but as her other comorbidities improve, if still with sinus tachycardia, could consider beta suzanne therapy
Echo was stable with normal LV size and function.
EKG unremarkable and trop negative.
Cont supportive care in the setting of multitude of factors which may play a role in tachycardia including infection, deficiencies, anemia, deconditioning.
Cont tele
Replete lytes as necessary including potassium greater than 4 and Mg greater than 2.
Impression / Plan
-
.
PCP: None
Cardiology: None
.
TTE 08/07/2024: EF 50-55%, grossly normal LV RV size and function, mild AI, trace TR PASP 20-25 mmHg
.
Impression:
Tachycardia, sinus, minimally symptomatic
Septic shock secondary to bilateral gluteal cellulitis with skin ulceration, improving
Symptomatic anemia
Severe vitamin deficiencies with likely malabsorption in the setting of malnutrition
� Ongoing GI workup
Positive hep A antibody
Hepatomegaly
Nonocclusive splenic vein thrombus
Plan:
Continues with sinus tachycardia that is multifactorial. She also appears very anxious. Would not overtreat at this time but as her other comorbidities improve, if still with sinus tachycardia, could consider beta suzanne therapy
Echo was stable with normal LV size and function.
EKG unremarkable and trop negative.
Cont supportive care in the setting of multitude of factors which may play a role in tachycardia including infection, deficiencies, anemia, deconditioning.
Cont tele
Replete lytes as necessary including potassium greater than 4 and Mg greater than 2.
Patient is a 18-year-old female without a significant reported past medical history who initially presented due to rash and hives on buttock with associated weakness. On admission, patient was noted to have multiple excoriations, ulcerations,
bruising with evidence of septic shock (hypotension and tachycardia). Additionally, patient was noted to have severe malnutrition along with vitamin deficiencies, elevated LFTs with positive hep A antibody, diffuse abdominal pain, symptomatic
severe anemia, nonocclusive splenic vein thrombus, hair loss, leukopenia. Cardiology consulted due to sinus tachycardia. Patient's had waxing waning heart rate which has persisted above 100 bpm since admission. In discussion with patient, she
reports some episodes of palpitations which were chronic for her but no reported diagnosis of arrhythmia. She notes that when the heart rate is high, she experiences mild discomfort/aching in the chest which resolves as the heart rate comes down.
She notes no chest pain with other activity or exertion. Patient is a non-smoker, no alcohol, no illicits.
Progress Note - Technical Support Intern
Subjective
Date of Service: August 09, 2024
Pt seen and examined. No complaints. No chest pain or shortness of breath.
Objective
Labs:
08/09/24 05:36
08/09/24 05:36
Labs
Hgb 8.2 g/dL (12.0-16.0) L 08/09/24 05:36
Hct 26.5 % (37.0-47.0) L 08/09/24 05:36
Plt Count 373 10^3/uL (130-400) 08/09/24 05:36
PT 14.6 Sec (11.4-14.6) 08/03/24 05:03
INR 1.11 08/03/24 05:03
APTT 34.3 Sec (23.4-35.0) 08/03/24 05:03
Sodium 140 mmol/L (135-145) 08/09/24 05:36
Potassium 3.9 mmol/L (3.5-5.1) 08/09/24 05:36
BUN 5 mg/dl (7-17) L 08/09/24 05:36
Creatinine 0.4 mg/dL (0.6-1.0) L 08/09/24 05:36
Glucose 81 mg/dl (70-99) 08/09/24 05:36
Troponins
08/07/24 08/07/24 08/08/24
14:50 21:41 09:33
Troponin I < 0.012 < 0.012 < 0.012
Vital Signs and I&O:
Vital Signs
Temp Pulse Resp BP Pulse Ox
99.5 F 154 16 134/92 98
08/09/24 07:30 08/09/24 07:30 08/09/24 07:30 08/09/24 07:30 08/09/24 09:44
Vital Signs
Temp Pulse Resp BP Pulse Ox
99.5 F 154 16 134/92 98
08/09/24 07:30 08/09/24 07:30 08/09/24 07:30 08/09/24 07:30 08/09/24 09:44
Intake & Output
08/07/24 08/08/24 08/09/24 08/10/24
06:59 06:59 06:59 06:59
Intake Total 2520 / 2520 960 / 960 1440 / 1440
Output Total 800 / 800 2350 / 2350 1325 / 1325
Balance 1720 / 1720 -1390 / -1390 115 / 115
Physical Exam
Physical Exam
General: No acute distress, appears anxious, awake and alert
Neck: Negative JVD
Heart: Tachycardia, Negative S3 positive S1/S2, Negative S4, No murmur
Lungs: CTA b/l, negative wheezes/rales/rhonchi
Abd: Positive BS, NT/ND, neg rebound/rigidity/guarding
Ext: Negative cyanosis/clubbing/edema
Neuro: nonfocal
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
[2024-08-09 11:48] LABS: Vitamin C (Ascorbic Acid) 8 umol/L (23-114)
[2024-08-09] MEDS: TYLENOL 650 MG PO (12:10)
--- NOTE | 2024-08-09 15:05 | CM ---
Reviewed the chart notes. Patient was able to sit edge of bed for ~18 minutes per PT. Patient able to perform leg lifts from edge of bed. Bed mobility remains dependent. CM continues to be available to patient/family and is monitoring medical
plan for needs at discharge.
Plan: Discharge plan will depend on the patient's progress.
[2024-08-09] MEDS: LOVENOX 40 MG SC (17:08)
[2024-08-09 19:56] LABS: Hepatitis A IgM Antibody Negative (Negative)
[2024-08-10 03:04] VITALS: BP 135/86
[2024-08-10 05:40] VITALS: BMI 32.5
[2024-08-10 07:47] VITALS: BP 135/92
[2024-08-10 08:40] LABS: % Basophils 0.4 % (0-2); % Eosinophils 3.8 % (0-6); % Immature Granulocytes 0.8 % (0-0.5); % Lymphocytes 23.8 % (20.5-51.1); % Monocytes 7.3 % (1.7-9.3); % Neutrophils 63.9 % (42.2-75.2); Absolute Eosinophils 0.2 10^3/uL (0-0.7); Absolute Lymphocytes 1.2 10^3/uL (1.2-3.4); Absolute Monocytes 0.4 10^3/uL (0.1-0.6); Absolute Neutrophils 3.3 10^3/uL (1.4-6.5); Hematocrit 26.4 % (37.0-47.0); Hemoglobin 8.3 g/dL (12.0-16.0); Mean Corp Hgb Conc. 31.4 g/dL (33.0-37.0); Mean Corpuscular Hgb 28.4 pg (27.0-31.0); Mean Corpuscular Volume 90.4 fL (81.0-99.0); Mean Platelet Volume 8.9 fL (7.4-10.4); Nucleated Red Blood Cells % 0 %; Platelet Count 396 10^3/uL (130-400); Red Blood Cell Count 2.92 10^6/uL (4.20-5.40); Red Cell Dist. Width 18.9 % (11.5-14.5); White Blood Cell Count 5.2 10^3/uL (4.8-10.8)
[2024-08-10 09:00] LABS: Blood Urea Nitrogen 6 mg/dl (7-17); Calcium 7.4 mg/dl (8.4-10.2); Carbon Dioxide 25 mmol/L (22-30); Chloride 109 mmol/L (98-107); Estimated Creatinine Clearance > 125 ml/min; Glucose 75 mg/dl (70-99); Potassium 3.5 mmol/L (3.5-5.1); Sodium 141 mmol/L (135-145); eGFR > 60.00
[2024-08-10] MEDS: LIDOCAINE 4% PATCH TOPICAL (09:18)
[2024-08-10] MEDS: SODIUM BICARBONATE 650 MG PO ×3 (09:20→22:15)
[2024-08-10] MEDS: VITAMIN B-12 1000 MCG PO (09:20)
[2024-08-10] MEDS: THERAGRAN 1 TABLET PO (09:21)
[2024-08-10] MEDS: PEPCID 20 MG PO (09:21)
[2024-08-10] MEDS: FEOSOL 325 MG PO (09:21)
[2024-08-10] MEDS: FOLVITE 1 MG PO (09:21)
[2024-08-10] MEDS: PROTONIX 40 MG PO (09:21)
[2024-08-10] MEDS: VITAMIN C 1000 MG PO (09:21)
[2024-08-10 09:54] LABS: Magnesium 1.8 mg/dl (1.6-2.3); Phosphorus 3.8 mg/dl (2.5-4.5)
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
[2024-08-10 11:28] VITALS: BP 134/88
[2024-08-10] MEDS: KCL 20 MEQ PO (11:47)
[2024-08-10] MEDS: INDERAL LA 60 MG PO (11:47)
[2024-08-10] MEDS: MAGNESIUM OXIDE 500 MG PO (11:47)
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
[2024-08-10 15:13] VITALS: BP 125/84
[2024-08-10] MEDS: TYLENOL 650 MG PO (15:32)
[2024-08-10 15:43] LABS: Syphilis/T. pallidum Ab Reflex Negative (Negative)
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
[2024-08-10] MEDS: LOVENOX SC (18:32)
[2024-08-10 19:35] VITALS: BP 122/77
[2024-08-10] MEDS: MAG-TAB SR 84 MG PO (20:10)
[2024-08-10 22:53] VITALS: BP 111/77
[2024-08-10 23:25] LABS: Calprotectin, Fecal 92 ug/g (<=49)
[2024-08-11 01:05] LABS: Pancreatic Elastase, Fecal 798 ug/g (>=100)
[2024-08-11 03:18] VITALS: BP 125/82
[2024-08-11] MEDS: LIDOCAINE 4% PATCH 1 PATCH TOPICAL (08:38)
[2024-08-11] MEDS: MAG-TAB SR 84 MG PO ×2 (08:39→22:00)
[2024-08-11] MEDS: VITAMIN B-12 1000 MCG PO (08:39)
[2024-08-11] MEDS: THERAGRAN 1 TABLET PO (08:39)
[2024-08-11] MEDS: VITAMIN C 1000 MG PO (08:39)
[2024-08-11] MEDS: PEPCID 20 MG PO (08:39)
[2024-08-11] MEDS: PROTONIX 40 MG PO (08:39)
[2024-08-11] MEDS: FEOSOL 325 MG PO (08:40)
[2024-08-11] MEDS: INDERAL LA 60 MG PO (08:41)
[2024-08-11] MEDS: FOLVITE 1 MG PO (08:41)
[2024-08-11] MEDS: SODIUM BICARBONATE 650 MG PO ×3 (08:42→22:00)
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
[2024-08-11 10:28] LABS: % Basophils 0.4 % (0-2); % Eosinophils 9.2 % (0-6); % Immature Granulocytes 0.8 % (0-0.5); % Lymphocytes 27.4 % (20.5-51.1); % Monocytes 6.7 % (1.7-9.3); % Neutrophils 55.5 % (42.2-75.2); Absolute Eosinophils 0.4 10^3/uL (0-0.7); Absolute Lymphocytes 1.3 10^3/uL (1.2-3.4); Absolute Monocytes 0.3 10^3/uL (0.1-0.6); Absolute Neutrophils 2.7 10^3/uL (1.4-6.5); Hematocrit 27.8 % (37.0-47.0); Hemoglobin 8.6 g/dL (12.0-16.0); Mean Corp Hgb Conc. 30.9 g/dL (33.0-37.0); Mean Corpuscular Hgb 28.6 pg (27.0-31.0); Mean Corpuscular Volume 92.4 fL (81.0-99.0); Nucleated Red Blood Cells % 0 %; Platelet Count 412 10^3/uL (130-400); Red Blood Cell Count 3.01 10^6/uL (4.20-5.40); Red Cell Dist. Width 19.5 % (11.5-14.5); White Blood Cell Count 4.8 10^3/uL (4.8-10.8)
[2024-08-11 10:56] LABS: Blood Urea Nitrogen 6 mg/dl (7-17); Calcium 7.6 mg/dl (8.4-10.2); Carbon Dioxide 24 mmol/L (22-30); Chloride 108 mmol/L (98-107); Estimated Creatinine Clearance > 125 ml/min; Glucose 78 mg/dl (70-99); Potassium 3.7 mmol/L (3.5-5.1); Sodium 137 mmol/L (135-145); eGFR > 60.00
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
[2024-08-11] MEDS: TYLENOL 650 MG PO ×2 (12:19→17:08)
[2024-08-11] MEDS: BENTYL 10 MG PO (12:20)
[2024-08-11 13:13] LABS: tTG IgA Antibody 8.4 EU/ml (0-19); tTG IgG Antibody 9.2 EU/ml (0-19)
--- NOTE | 2024-08-11 15:03 | CM ---
Reviewed the chart notes. Patient has no insurance therefore does not qualify for SNF as recommended by PT. CM continues to be available to patient/family and is monitoring medical plan for needs at discharge.
Plan: Discharge to home when medically stable.
[2024-08-11 15:05] VITALS: BP 118/83
[2024-08-11 15:50] VITALS: BP 118/83
[2024-08-11] MEDS: LOVENOX 40 MG SC (17:08)
[2024-08-11 19:20] VITALS: BP 124/91
[2024-08-11 23:09] VITALS: BP 117/82
[2024-08-12 03:39] VITALS: BP 117/82
[2024-08-12 05:04] VITALS: BMI 32.1
[2024-08-12 06:55] LABS: % Basophils 0.5 % (0-2); % Immature Granulocytes 0.8 % (0-0.5); % Lymphocytes 28.3 % (20.5-51.1); % Monocytes 6.5 % (1.7-9.3); % Neutrophils 54.9 % (42.2-75.2); Absolute Eosinophils 0.4 10^3/uL (0-0.7); Absolute Lymphocytes 1.1 10^3/uL (1.2-3.4); Absolute Monocytes 0.3 10^3/uL (0.1-0.6); Absolute Neutrophils 2.2 10^3/uL (1.4-6.5); Hematocrit 27.1 % (37.0-47.0); Hemoglobin 8.2 g/dL (12.0-16.0); Mean Corp Hgb Conc. 30.3 g/dL (33.0-37.0); Mean Corpuscular Hgb 28.1 pg (27.0-31.0); Mean Corpuscular Volume 92.8 fL (81.0-99.0); Mean Platelet Volume 9.2 fL (7.4-10.4); Nucleated Red Blood Cells % 0 %; Platelet Count 416 10^3/uL (130-400); Red Blood Cell Count 2.92 10^6/uL (4.20-5.40); Red Cell Dist. Width 19.8 % (11.5-14.5)
[2024-08-12 07:08] VITALS: BP 109/70
[2024-08-12 07:23] LABS: Blood Urea Nitrogen 6 mg/dl (7-17); Calcium 7.5 mg/dl (8.4-10.2); Carbon Dioxide 24 mmol/L (22-30); Chloride 109 mmol/L (98-107); Estimated Creatinine Clearance > 125 ml/min; Glucose 85 mg/dl (70-99); Potassium 3.5 mmol/L (3.5-5.1); Sodium 137 mmol/L (135-145); eGFR > 60.00
[2024-08-12] MEDS: THERAGRAN 1 TABLET PO (09:44)
[2024-08-12] MEDS: FOLVITE 1 MG PO (09:44)
[2024-08-12] MEDS: PEPCID 20 MG PO (09:44)
[2024-08-12] MEDS: MAG-TAB SR 84 MG PO ×2 (09:44→20:57)
[2024-08-12] MEDS: INDERAL LA 60 MG PO (09:45)
[2024-08-12] MEDS: FEOSOL 325 MG PO (09:45)
[2024-08-12] MEDS: LIDOCAINE 4% PATCH 1 PATCH TOPICAL (09:47)
[2024-08-12] MEDS: SODIUM BICARBONATE 650 MG PO (09:48)
[2024-08-12] MEDS: PROTONIX 40 MG PO (09:48)
[2024-08-12] MEDS: VITAMIN C 1000 MG PO (09:48)
[2024-08-12] MEDS: VITAMIN B-12 1000 MCG PO (09:48)
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
[2024-08-12] MEDS: NEURONTIN 200 MG PO ×2 (10:37→20:57)
--- NOTE | 2024-08-12 11:17 | CM ---
Reviewed the chart notes. Huffman removed this morning. CM continues to be available to patient/family and is monitoring medical plan for needs at discharge.
Plan: Discharge when medically stable.
[2024-08-12 11:30] VITALS: BP 110/75
--- NOTE | 2024-08-12 11:32 | W.PN.UPDATE ---
Update Note
Progress Note Update
patient seen chart reviewed. discussed with nursing. through the sand hauler line i asked ms small a number of questions trying to get a handle on her mental state and how this severe malnutrition could have happened. she maintains that her bruises
are new only from this admission which is difficuit to believe. she says that bp checks checks of LE circulation etc etc caused the bruising. the alopecia is two months in duration. her hair started falling out for no apparent reason. she also
lost her appetite around the same time and says she went from XL size to L in that time. she said she recognized that she was not eating as much but eating would make her nauseated. she adamantly denied that anyone was harming her in any way. she
also denied that she is depressed. she said she has moments where she is sad which is normal for anyone but she does not see herself as sad or mistreated in any way. her affect was appropriate i would say. the sand hauler was quite good in asking
clarifying questions and providing me with translations. it is curious that she would be so deficient in vitamins (perhaps zinc too and that could contribute to hair loss) but the vitamin deficiencies could account for her sx. i don't see at this
point anything for psych to do here at this point . she is on no psych meds. i don't see a need for any. psych signing off. please call us if you need us to return.
[2024-08-12 13:13] VITALS: BP 110/75
--- NOTE | 2024-08-12 14:20 | WOUNDNOTE ---
WO RN note: Patient is on a Centrella Pro bed. She has a bariatric air chair cushion. Buttocks/coccyx ulcers improved from last week. Scattered bruises on arms and legs. Patient assists with turning. Patient voided on bedpan. Patient turned to L
semi side lying position with help from [facility]. Heels off bed with bariatric air chair cushion. Patient reports an appetite. Will follow as needed.
--- NOTE | 2024-08-12 14:20 | WOUNDNOTE ---
R HIP/LEG (LATERAL)
--- NOTE | 2024-08-12 14:20 | WOUNDNOTE ---
WO RN note: Patient is on a Centrea Max Pro bed. She has a bariatric air chair cushion. Buttocks/coccyx ulcers improved from last week. Scattered bruises on arms and legs. Patient assists with turning. Patient voided on bedpan. Patient turned to
L semi side lying position [facility]. Heels off bed with bariatric air chair cushion. Patient reports an appetite. Will follow as needed.
--- NOTE | 2024-08-12 15:15 | PTCARENOTE ---
Huffman removed @ 11am, voided twice on bedpan since.
[2024-08-12 15:25] VITALS: BP 116/78
[2024-08-12] MEDS: LOVENOX 40 MG SC (17:39)
[2024-08-12 19:45] VITALS: BP 107/68
[2024-08-13] VITALS (7 sets, daily range): BP systolic 108–127; BP diastolic 67–89; BMI 31.8
[2024-08-13 09:19] LABS: Hematocrit 25.8 % (37.0-47.0); Mean Corpuscular Hgb 28.3 pg (27.0-31.0); Mean Corpuscular Volume 91.2 fL (81.0-99.0); Mean Platelet Volume 9.1 fL (7.4-10.4); Platelet Count 387 10^3/uL (130-400); Red Blood Cell Count 2.83 10^6/uL (4.20-5.40); Red Cell Dist. Width 19.9 % (11.5-14.5); White Blood Cell Count 4.3 10^3/uL (4.8-10.8)
[2024-08-13 09:48] LABS: Blood Urea Nitrogen 4 mg/dl (7-17); Calcium 7.7 mg/dl (8.4-10.2); Carbon Dioxide 25 mmol/L (22-30); Chloride 109 mmol/L (98-107); Estimated Creatinine Clearance > 125 ml/min; Glucose 76 mg/dl (70-99); Potassium 3.5 mmol/L (3.5-5.1); Sodium 138 mmol/L (135-145); eGFR > 60.00
[2024-08-13] MEDS: INDERAL LA 60 MG PO (10:13)
[2024-08-13] MEDS: PEPCID 20 MG PO (10:14)
[2024-08-13] MEDS: PROTONIX 40 MG PO (10:14)
[2024-08-13] MEDS: VITAMIN C 1000 MG PO (10:14)
[2024-08-13] MEDS: NEURONTIN 200 MG PO ×2 (10:14→21:24)
[2024-08-13] MEDS: MAG-TAB SR 84 MG PO ×2 (10:14→21:24)
[2024-08-13] MEDS: THERAGRAN 1 TABLET PO (10:14)
[2024-08-13] MEDS: VITAMIN B-12 1000 MCG PO (10:14)
[2024-08-13] MEDS: FOLVITE 1 MG PO (10:14)
[2024-08-13] MEDS: LIDOCAINE 4% PATCH 1 PATCH TOPICAL (10:15)
[2024-08-13] MEDS: FEOSOL 325 MG PO (10:16)
[2024-08-13 10:38] LABS: % Basophils 0.5 % (0-2); % Eosinophils 4.7 % (0-6); % Immature Granulocytes 0.5 % (0-0.5); % Lymphocytes 32.2 % (20.5-51.1); % Monocytes 5.2 % (1.7-9.3); % Neutrophils 56.9 % (42.2-75.2); Absolute Eosinophils 0.2 10^3/uL (0-0.7); Absolute Lymphocytes 1.4 10^3/uL (1.2-3.4); Absolute Monocytes 0.2 10^3/uL (0.1-0.6); Absolute Neutrophils 2.4 10^3/uL (1.4-6.5); Nucleated Red Blood Cells % 0 %
--- NOTE | 2024-08-13 11:16 | CM ---
CM following re: discharge planning.
Reviewed the chart notes. Patient has no insurance therefore does not qualify for SNF as recommended by PT. CM continues to be available to patient/family and is monitoring medical plan for needs at discharge.
Plan: Discharge to home when medically stable.
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
[2024-08-13] MEDS: LOVENOX 40 MG SC (18:01)
[2024-08-13] MEDS: FLUSH (NSS) 2 FLUSH IV (21:26)
[2024-08-14 03:08] VITALS: BP 110/76
[2024-08-14 06:00] VITALS: BMI 31.5
[2024-08-14 08:00] VITALS: BP 124/80
[2024-08-14] MEDS: FOLVITE 1 MG PO (08:50)
[2024-08-14] MEDS: MAG-TAB SR 84 MG PO ×2 (08:51→20:55)
[2024-08-14] MEDS: INDERAL LA 60 MG PO (08:51)
[2024-08-14] MEDS: PROTONIX 40 MG PO (08:52)
[2024-08-14] MEDS: VITAMIN B-12 1000 MCG PO (08:52)
[2024-08-14] MEDS: FEOSOL 325 MG PO (08:52)
[2024-08-14] MEDS: VITAMIN C 1000 MG PO (08:52)
[2024-08-14] MEDS: PEPCID 20 MG PO (08:52)
[2024-08-14] MEDS: THERAGRAN 1 TABLET PO (08:52)
[2024-08-14] MEDS: LIDOCAINE 4% PATCH TOPICAL (08:53)
[2024-08-14] MEDS: NEURONTIN 200 MG PO ×2 (08:53→20:55)
[2024-08-14 12:33] VITALS: BP 114/78
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
[2024-08-14 16:00] VITALS: BP 129/87
[2024-08-14] MEDS: LOVENOX 40 MG SC (17:00)
[2024-08-14 19:44] VITALS: BP 110/73
[2024-08-14 23:11] VITALS: BP 102/68
[2024-08-15 02:59] VITALS: BP 114/79; BMI 31.4
[2024-08-15 06:00] VITALS: BMI 31.4
[2024-08-15 07:30] VITALS: BP 121/82
--- NOTE | 2024-08-15 08:54 | W.PN.GI.CBS2 ---
Today's Communication / Plan
-
Please see assessment and plan for details.
Assessment / Plan
-
1. Severe malnutrition: Protein and vitamin malnutrition, with initial sepsis and cellulitis, now all much improved. Likely secondary to extremely poor intake, though patient states that she was eating some regular food prior to admission.
Underlying GI malabsorptive process to cause such a diffuse malabsorption at this age seems less likely though is not excluded. Now that she is doing better, will plan EGD and colonoscopy tomorrow. I discussed at length with her via the
information broker, will plan clears today, preparation tonight and EGD and colonoscopy tomorrow.
Subjective
Subjective
Date of Service: August 15, 2024
Called back to see patient for endoscopy and colonoscopy. Patient is seen with video information broker. Patient initially admitted on July 30 with rash and sepsis, requiring pressors and antibiotics, found to be profoundly malnourished, with
leukopenia, severe B12, folate, vitamin D deficiencies as well as scurvy. She is now feeling overall much better. She has occasional abdominal pain has been tolerating diet without significant difficulties. She has no significant diarrhea, and
labs have all much improved.
Objective
Data Reviewed
Laboratory Data:
Laboratory Results
08/13/24 09:01
08/13/24 09:01
Laboratory Results
PT 14.6 Sec (11.4-14.6) 08/03/24 05:03
INR 1.11 08/03/24 05:03
APTT 34.3 Sec (23.4-35.0) 08/03/24 05:03
Phosphorus 3.8 mg/dl (2.5-4.5) 08/10/24 08:29
Magnesium 1.8 mg/dl (1.6-2.3) 08/10/24 08:29
Total Bilirubin 2.1 mg/dl (0.2-1.3) H 08/08/24 09:33
AST 72 U/L (14-36) H 08/08/24 09:33
ALT 19 U/L (0-35) 08/08/24 09:33
Alkaline Phosphatase 189 U/L (38-126) H 08/08/24 09:33
Vital Signs and I&O:
Vital Signs
Temp Pulse Resp BP Pulse Ox
98.5 F 106 16 121/82 98
08/15/24 07:30 08/15/24 07:30 08/15/24 07:30 08/15/24 07:30 08/15/24 07:30
I&O
08/14/24 08/15/24 08/16/24
06:59 06:59 06:59
Intake Total 1200 / 1200 1030 / 1030
Balance 1200 / 1200 1030 / 1030
Physical Exam
Physical Exam
General: NAD
Abdomen: normal bowel sounds, soft, no tenderness, no masses or bruits, no ascites
[2024-08-15] MEDS: PROTONIX 40 MG PO (09:39)
[2024-08-15] MEDS: NEURONTIN 200 MG PO ×2 (09:39→21:11)
[2024-08-15] MEDS: THERAGRAN 1 TABLET PO (09:39)
[2024-08-15] MEDS: INDERAL LA 60 MG PO (09:40)
[2024-08-15] MEDS: PEPCID 20 MG PO (09:40)
[2024-08-15] MEDS: VITAMIN C 1000 MG PO (09:40)
[2024-08-15] MEDS: FEOSOL 325 MG PO (09:40)
[2024-08-15] MEDS: VITAMIN B-12 1000 MCG PO (09:41)
[2024-08-15] MEDS: FOLVITE 1 MG PO (09:41)
[2024-08-15] MEDS: MAG-TAB SR 84 MG PO ×2 (09:41→21:11)
[2024-08-15] MEDS: LIDOCAINE 4% PATCH TOPICAL (09:44)
[2024-08-15] MEDS: DRISDOL (VITAMIN D2) 50000 UNITS PO (10:02)
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
[2024-08-15 11:40] VITALS: BP 124/83
[2024-08-15 15:41] VITALS: BP 104/68
[2024-08-15] MEDS: NULYTELY SOLUTION 4 LITERS PO (17:14)
[2024-08-15] MEDS: LOVENOX 40 MG SC (17:22)
[2024-08-15 19:25] VITALS: BP 110/69
[2024-08-15 23:40] VITALS: BP 123/78
[2024-08-16] VITALS (10 sets, daily range): BP systolic 106–134; BP diastolic 68–89; BMI 31.3
--- NOTE | 2024-08-16 09:22 | W.PN.UPDATE ---
Update Note
Progress Note Update
s/p EGD for severe protein energy malnutrition andalso anemia:
- No gross lesions in the entire esophagus.
- Z-line variable, 33 cm from the incisors. Biopsied.
- Nodular mucosa in the entire stomach. Biopsied.
- The examined duodenum was normal but very friable. Biopsies were taken with a cold forceps for histology.
Plan
- Await pathology results.
- Follow an antireflux regimen.
- Use Protonix (pantoprazole) 40 mg PO daily.
- Resume previous diet.
- Follow up on the biopsies.
- Discussed with the patient though cost control supervisor regarding drinking the colonoscopy prep. Patient was nauseous with the prep, I did give other options for the prep and the patient did not want to try other preps as she was very nauseous and didnt
think she would tolerate it.
[2024-08-16] MEDS: LIDOCAINE 4% PATCH TOPICAL (09:47)
--- NOTE | 2024-08-16 10:29 | PTCARENOTE ---
Pt received back from PACU, VSS, wound care complete, AM meds administered late due to procedure. Pt resting comfortably in bed at this time.
[2024-08-16] MEDS: INDERAL LA 60 MG PO (10:32)
[2024-08-16] MEDS: FOLVITE 1 MG PO (10:32)
[2024-08-16] MEDS: THERAGRAN 1 TABLET PO (10:33)
[2024-08-16] MEDS: NEURONTIN 200 MG PO ×2 (10:33→19:53)
[2024-08-16] MEDS: FEOSOL 325 MG PO (10:33)
[2024-08-16] MEDS: PROTONIX 40 MG PO (10:34)
[2024-08-16] MEDS: VITAMIN C 1000 MG PO (10:34)
[2024-08-16] MEDS: MAG-TAB SR 84 MG PO ×2 (10:34→19:53)
[2024-08-16] MEDS: VITAMIN B-12 1000 MCG PO (10:35)
[2024-08-16] MEDS: PEPCID 20 MG PO (10:35)
--- NOTE | 2024-08-16 11:14 | CM ---
Reviewed the chart notes. Patient is s/p EGD today. Per note, unable to tolerate prep for colonoscopy. CM continues to be available to patient/family and is monitoring medical plan for needs at discharge.
Plan: PT recommending SNF, but the patient is not eligible for insurance, therefore home when medically stable.
[2024-08-16 13:59] LABS: % Basophils 0.4 % (0-2); % Eosinophils 3.4 % (0-6); % Immature Granulocytes 0.8 % (0-0.5); % Lymphocytes 26.9 % (20.5-51.1); % Monocytes 5.7 % (1.7-9.3); % Neutrophils 62.8 % (42.2-75.2); Absolute Eosinophils 0.2 10^3/uL (0-0.7); Absolute Lymphocytes 1.3 10^3/uL (1.2-3.4); Absolute Monocytes 0.3 10^3/uL (0.1-0.6); Absolute Neutrophils 3.1 10^3/uL (1.4-6.5); Hematocrit 25.2 % (37.0-47.0); Mean Corp Hgb Conc. 31.7 g/dL (33.0-37.0); Mean Corpuscular Hgb 29.4 pg (27.0-31.0); Mean Corpuscular Volume 92.6 fL (81.0-99.0); Nucleated Red Blood Cells % 0 %; Platelet Count 367 10^3/uL (130-400); Red Blood Cell Count 2.72 10^6/uL (4.20-5.40); Red Cell Dist. Width 22.2 % (11.5-14.5); White Blood Cell Count 4.9 10^3/uL (4.8-10.8)
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
[2024-08-16 14:40] LABS: Blood Urea Nitrogen 3 mg/dl (7-17); Calcium 7.8 mg/dl (8.4-10.2); Carbon Dioxide 24 mmol/L (22-30); Chloride 108 mmol/L (98-107); Estimated Creatinine Clearance > 125 ml/min; Glucose 77 mg/dl (70-99); Potassium 3.7 mmol/L (3.5-5.1); Sodium 136 mmol/L (135-145); eGFR > 60.00
[2024-08-16 14:48] LABS: Anisocytosis 1+; Hypochromasia 2+; Normal RBC Morphology No; Ovalocytes 1+; Polychromasia 1+; Target Cells 1+
[2024-08-16] MEDS: LOVENOX 40 MG SC (17:07)
[2024-08-16] MEDS: KCL 40 MEQ PO (19:53)
[2024-08-17 03:37] VITALS: BP 124/81
[2024-08-17 06:00] VITALS: BMI 30.7
[2024-08-17 07:35] VITALS: BP 130/74
[2024-08-17] MEDS: KCL 40 MEQ PO ×2 (08:47→21:14)
[2024-08-17] MEDS: FEOSOL 325 MG PO (08:47)
[2024-08-17] MEDS: VITAMIN B-12 1000 MCG PO (08:47)
[2024-08-17] MEDS: PEPCID 20 MG PO (08:47)
[2024-08-17] MEDS: PROTONIX 40 MG PO (08:47)
[2024-08-17] MEDS: VITAMIN C 1000 MG PO (08:47)
[2024-08-17] MEDS: MAG-TAB SR 84 MG PO ×2 (08:47→21:14)
[2024-08-17] MEDS: INDERAL LA 60 MG PO (08:47)
[2024-08-17] MEDS: NEURONTIN 200 MG PO ×2 (08:47→21:14)
[2024-08-17] MEDS: FOLVITE 1 MG PO (08:47)
[2024-08-17] MEDS: THERAGRAN 1 TABLET PO (08:47)
[2024-08-17] MEDS: LIDOCAINE 4% PATCH 1 PATCH TOPICAL (08:48)
[2024-08-17] MEDS: DESENEX/MITRAZOL/ZEASORB 1 APPLIC TOPICAL (08:48)
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
[2024-08-17 10:34] LABS: ALT (SGPT) 34 U/L (0-35); AST (SGOT) 98 U/L (14-36); Albumin 2.1 g/dl (3.5-5.0); Alkaline Phosphatase 187 U/L (38-126); Blood Urea Nitrogen 2 mg/dl (7-17); Calcium 7.8 mg/dl (8.4-10.2); Carbon Dioxide 23 mmol/L (22-30); Chloride 107 mmol/L (98-107); Estimated Creatinine Clearance > 125 ml/min; Glucose 80 mg/dl (70-99); Sodium 135 mmol/L (135-145); Total Bilirubin 3.9 mg/dl (0.2-1.3); Total Protein 5.8 g/dl (6.3-8.2); eGFR > 60.00
[2024-08-17 10:39] LABS: Potassium 4.3 mmol/L (3.5-5.1)
--- NOTE | 2024-08-17 11:17 | PTCARENOTE ---
Communicated with patient via Language line IPad. Patient refused to stand or get OOB this am to sit in chair. Patient crying and screaming that she cannot stand. Patient also incontinent of urine. Patient states, 'It is an important day. Today I
will eat and I will rest. I will get up tomorrow.' PT in room with RN and refused with the help of both us to stand. Patient has no no c/o pain, except if you touch her arms.
--- NOTE | 2024-08-17 11:30 | CM ---
Reviewed the chart notes. Per PT, patient remains dependent with bed mobility. CM continues to be available to patient/family and is monitoring medical plan for needs at discharge.
Plan: PT recommending SNF, but the patient is not eligible for insurance, therefore home when medically stable.
[2024-08-17 11:45] VITALS: BP 128/89
--- NOTE | 2024-08-17 12:25 | W.PN.GI.CBS2 ---
Addendum entered and electronically signed by Violetta Newton MD 08/17/24 12:42:
Also n4eed to consider hemolytic n to the anemia
Addendum entered and electronically signed by Violetta Newton MD 08/17/24 12:36:
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
Original Note:
Today's Communication / Plan
-
Plan
- Await pathology results.
-Tolerating regular diet
- Use Protonix (pantoprazole) 40 mg PO daily.
-Discussed with patient through cafeteria director yesterday and also this morning, she does not want to go through the colonoscopy as she does not want to take the prep to clear the colon.
Elevated LFT's including total bilirubin
Hepatitis serologies and celiac panel negative.
Ultrasound and CT scan reviewed, fatty liver noted.
Will check AMA, ASMA, ceruloplasmin, alpha-1 antitrypsin.
If LFTs continue to go up, would consider repeating ultrasound Doppler at that time
Will follow-up on the above
Assessment / Plan
-
1. Severe malnutrition: Protein and vitamin malnutrition, with initial sepsis and cellulitis, now all much improved. Likely secondary to extremely poor intake, though patient states that she was eating some regular food prior to admission.
Underlying GI malabsorptive process to cause such a diffuse malabsorption at this age seems less likely though is not excluded.
s/p EGD for severe protein energy malnutrition andalso anemia:
- No gross lesions in the entire esophagus.
- Z-line variable, 33 cm from the incisors. Biopsied.
- Nodular mucosa in the entire stomach. Biopsied.
- The examined duodenum was normal but very friable. Biopsies were taken with a cold forceps for histology.
Plan
- Await pathology results.
-Tolerating regular diet
- Use Protonix (pantoprazole) 40 mg PO daily.
-Discussed with patient through cafeteria director yesterday and also this morning, she does not want to go through the colonoscopy as she does not want to take the prep to clear the colon.
Elevated LFT's including total bilirubin
Hepatitis serologies and celiac panel negative.
Ultrasound and CT scan reviewed, fatty liver noted.
Will check AMA, ASMA, ceruloplasmin, alpha-1 antitrypsin.
If LFTs continue to go up, would consider repeating ultrasound Doppler at that time
Will follow-up on the above
Subjective
Subjective
Date of Service: August 17, 2024
Patient reports some discomfort in the left mid abdomen, no nausea or vomiting. Tolerating diet and no diarrhea
Objective
Data Reviewed
Laboratory Data:
Laboratory Results
08/16/24 13:33
08/17/24 09:08
Laboratory Results
PT 14.6 Sec (11.4-14.6) 08/03/24 05:03
INR 1.11 08/03/24 05:03
APTT 34.3 Sec (23.4-35.0) 08/03/24 05:03
Phosphorus 3.8 mg/dl (2.5-4.5) 08/10/24 08:29
Magnesium 1.8 mg/dl (1.6-2.3) 08/10/24 08:29
Total Bilirubin 3.9 mg/dl (0.2-1.3) H 08/17/24 09:08
AST 98 U/L (14-36) H 08/17/24 09:08
ALT 34 U/L (0-35) 08/17/24 09:08
Alkaline Phosphatase 187 U/L (38-126) H 08/17/24 09:08
Vital Signs and I&O:
Vital Signs
Temp Pulse Resp BP Pulse Ox
99.6 F 145 16 130/74 99
08/17/24 07:35 08/17/24 07:35 08/17/24 07:35 08/17/24 07:35 12/24/24 07:35
I&O
08/16/24 08/17/24 08/18/24
06:59 06:59 06:59
Intake Total 1800 / 1800 1440 / 1440
Balance 1800 / 1800 1440 / 1440
Physical Exam
Physical Exam
GI: Soft, Non Distended and Tender (Some discomfort on palpation in the left mid abdomen)
[2024-08-17 15:20] VITALS: BP 124/84
[2024-08-17] MEDS: LOVENOX 40 MG SC (16:51)
[2024-08-17 19:49] VITALS: BP 107/68
[2024-08-17 23:19] VITALS: BP 116/76
[2024-08-18 03:21] VITALS: BP 102/68
[2024-08-18] MEDS: TYLENOL 650 MG PO (03:50)
[2024-08-18 06:26] VITALS: BMI 30.4
[2024-08-18 07:35] VITALS: BP 115/75
[2024-08-18 08:32] LABS: Hematocrit 25.3 % (37.0-47.0); Hemoglobin 7.8 g/dL (12.0-16.0); Mean Corp Hgb Conc. 30.8 g/dL (33.0-37.0); Mean Corpuscular Hgb 29.5 pg (27.0-31.0); Mean Corpuscular Volume 95.8 fL (81.0-99.0); Platelet Count 340 10^3/uL (130-400); Red Blood Cell Count 2.64 10^6/uL (4.20-5.40); Red Cell Dist. Width 22.7 % (11.5-14.5); White Blood Cell Count 4.9 10^3/uL (4.8-10.8)
[2024-08-18 08:41] LABS: ALT (SGPT) 33 U/L (0-35); AST (SGOT) 96 U/L (14-36); Albumin 2.2 g/dl (3.5-5.0); Alkaline Phosphatase 192 U/L (38-126); Blood Urea Nitrogen 3 mg/dl (7-17); Carbon Dioxide 22 mmol/L (22-30); Chloride 108 mmol/L (98-107); Estimated Creatinine Clearance > 125 ml/min; Glucose 82 mg/dl (70-99); Potassium 4.3 mmol/L (3.5-5.1); Sodium 134 mmol/L (135-145); Total Bilirubin 4.6 mg/dl (0.2-1.3); Total Protein 5.8 g/dl (6.3-8.2); eGFR > 60.00
[2024-08-18 09:07] LABS: % Basophils 0.2 % (0-2); % Eosinophils 4.9 % (0-6); % Immature Granulocytes 0.6 % (0-0.5); % Lymphocytes 32.8 % (20.5-51.1); % Neutrophils 52.5 % (42.2-75.2); Absolute Eosinophils 0.2 10^3/uL (0-0.7); Absolute Lymphocytes 1.6 10^3/uL (1.2-3.4); Absolute Monocytes 0.4 10^3/uL (0.1-0.6); Absolute Neutrophils 2.6 10^3/uL (1.4-6.5); Nucleated Red Blood Cells % 0 %
[2024-08-18] MEDS: INDERAL LA PO (09:07)
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
[2024-08-18] MEDS: LIDOCAINE 4% PATCH 1 PATCH TOPICAL (09:45)
[2024-08-18] MEDS: NEURONTIN 200 MG PO ×2 (09:46→21:38)
[2024-08-18] MEDS: VITAMIN C 1000 MG PO (09:46)
[2024-08-18] MEDS: PROTONIX 40 MG PO (09:46)
[2024-08-18] MEDS: KCL 40 MEQ PO ×2 (09:46→21:38)
[2024-08-18] MEDS: FEOSOL 325 MG PO (09:47)
[2024-08-18] MEDS: THERAGRAN 1 TABLET PO (09:47)
[2024-08-18] MEDS: MAG-TAB SR 84 MG PO ×2 (09:47→21:38)
[2024-08-18] MEDS: PEPCID 20 MG PO (09:47)
[2024-08-18] MEDS: VITAMIN B-12 1000 MCG PO (09:47)
[2024-08-18] MEDS: FOLVITE 1 MG PO (10:02)
[2024-08-18 10:16] LABS: Direct Bilirubin 3.5 mg/dl (0.0-0.4)
[2024-08-18 10:32] LABS: INR 1.08; PT 14.5 Sec (11.4-14.6)
[2024-08-18 11:29] VITALS: BP 116/81
[2024-08-18 11:31] LABS: LDH 248 U/L (120-246)
[2024-08-18] MEDS: INDERAL LA 80 MG PO (12:00)
--- NOTE | 2024-08-18 13:17 | W.PN.GI.CBS2 ---
Today's Communication / Plan
-
CLD tomorrow, Colonoscopy Friday. If LFTs continue to increase, recommend repeating abdominal US w/ dopplers
Assessment / Plan
-
Domenica Paulson is a 18 y.o. female who was initially admitted on July 30 with rash and sepsis, requiring pressors and antibiotics, found to be profoundly malnourished, with leukopenia, severe B12, folate, vitamin D deficiencies as well as scurvy,
GI asked to reevaluate due to NAHEED and elevated liver enyzmes.
1. Severe malnutrition: Protein and vitamin malnutrition, with initial sepsis and cellulitis, now all much improved. Likely secondary to extremely poor intake, though patient states that she was eating some regular food prior to admission.
Underlying GI malabsorptive process to cause such a diffuse malabsorption at this age seems less likely though is not excluded.
-->Stool studies: normal stool fat and pancreatic elastase; mildly elevated fecal calprotectin-92; neg. crypto/giardia, stool leukocytes, salmonella/shigella, camplobacter, shiga-toxin, c.diff
-->s/p EGD for severe protein energy malnutrition and also anemia:
- No gross lesions in the entire esophagus.
- Z-line variable, 33 cm from the incisors. Biopsied.
- Nodular mucosa in the entire stomach. Biopsied.
- The examined duodenum was normal but very friable. Biopsies were taken with a cold forceps for histology.
2. Elevated LFTs
-Imaging shows hepatic steatosis and hepatomegaly.
-On imaging she was found to have nonocclusive splenic vein thrombosis was evaluated by hematology and recommended against anticoagulation
-LFTs increasin.1 --> 3.9 (from 08/08 to 08/17, not checked inbetween) --> 4.6, Dbili 3.5, AST 96, ALT 33, Alk phos 192
-AMA, ASMA, ceruloplasmin, alpha-1 antitrypsin pending
-check hemolysis labs
-Hepatitis serologies and celiac panel negative
-If LFTs continue to increase, recc repeating abdominal US w/ dopplers
Plan
-Discussed with patient through heavy equipment technician today about colonoscopy, which she is now agreeable to. Plan for clear liquids tomorrow and colonoscopy tomorrow. I have low suspicion for IBD or even parasitic/helminth infection. It is unclear what is
driving her severe malnutrition, vitamin and mineral deficiencies.
- Await pathology results from EGD
-Tolerating regular diet, change to clear liquids tomorrow with plans for colonoscopy on Friday
-if LFTs continue to increase on tomorrows labs, repeat abdominal US with dopplers
- Use Protonix (pantoprazole) 40 mg PO daily.
Subjective
Subjective
Date of Service: August 18, 2024
Patient seen in follow-up, evaluation performed using activity leaderTy� ID number [id number]. Discussed attempting colonoscopy with patient, very tearful. She asked heavy equipment technician not to relay certain information to me, I do not know what was
discussed. I cannot tell what her reluctance is to continuing the evaluation, suspect she is nervous or scared about some information that she does not to disclose. Nonetheless, after discussion she is agreeable to performing colonoscopy on friday,
plan for clear liquids tomorrow.
Objective
Data Reviewed
Laboratory Data:
Laboratory Results
08/18/24 08:00
08/18/24 08:00
Laboratory Results
PT 14.5 Sec (11.4-14.6) 08/18/24 09:45
INR 1.08 08/18/24 09:45
APTT 34.3 Sec (23.4-35.0) 08/03/24 05:03
Phosphorus 3.8 mg/dl (2.5-4.5) 08/10/24 08:29
Magnesium 1.8 mg/dl (1.6-2.3) 08/10/24 08:29
Total Bilirubin 4.6 mg/dl (0.2-1.3) H 08/18/24 08:00
AST 96 U/L (14-36) H 08/18/24 08:00
ALT 33 U/L (0-35) 08/18/24 08:00
Alkaline Phosphatase 192 U/L (38-126) H 08/18/24 08:00
Vital Signs and I&O:
Vital Signs
Temp Pulse Resp BP Pulse Ox
98.1 F 107 16 116/81 100
08/18/24 11:29 08/18/24 11:29 08/18/24 11:29 08/18/24 11:29 08/18/24 11:29
I&O
08/17/24 08/18/24 08/19/24
06:59 06:59 06:59
Intake Total 1440 / 1440 600 / 600
Balance 1440 / 1440 600 / 600
Physical Exam
Physical Exam
GI: Soft, Non Distended and Tender (Some discomfort on palpation in the left mid abdomen)
[2024-08-18 15:25] VITALS: BP 119/79
[2024-08-18] MEDS: LOVENOX 40 MG SC (16:40)
[2024-08-18 18:54] VITALS: BP 110/70
[2024-08-18 23:33] VITALS: BP 114/73
[2024-08-19 03:15] VITALS: BP 110/74
[2024-08-19 05:46] VITALS: BMI 29.8
[2024-08-19 08:03] VITALS: BP 111/73
[2024-08-19 08:16] LABS: % Basophils 0.4 % (0-2); % Eosinophils 6.6 % (0-6); % Immature Granulocytes 0.4 % (0-0.5); % Monocytes 8.7 % (1.7-9.3); % Neutrophils 50.9 % (42.2-75.2); Absolute Eosinophils 0.3 10^3/uL (0-0.7); Absolute Lymphocytes 1.5 10^3/uL (1.2-3.4); Absolute Monocytes 0.4 10^3/uL (0.1-0.6); Absolute Neutrophils 2.3 10^3/uL (1.4-6.5); Hematocrit 24.7 % (37.0-47.0); Hemoglobin 7.9 g/dL (12.0-16.0); Mean Corpuscular Hgb 30.3 pg (27.0-31.0); Mean Corpuscular Volume 94.6 fL (81.0-99.0); Mean Platelet Volume 9.3 fL (7.4-10.4); Nucleated Red Blood Cells % 0 %; Platelet Count 361 10^3/uL (130-400); Red Blood Cell Count 2.61 10^6/uL (4.20-5.40); Red Cell Dist. Width 22.5 % (11.5-14.5); White Blood Cell Count 4.6 10^3/uL (4.8-10.8)
[2024-08-19 08:47] LABS: ALT (SGPT) 34 U/L (0-35); AST (SGOT) 105 U/L (14-36); Albumin 2.2 g/dl (3.5-5.0); Alkaline Phosphatase 191 U/L (38-126); Blood Urea Nitrogen 3 mg/dl (7-17); Carbon Dioxide 22 mmol/L (22-30); Chloride 107 mmol/L (98-107); Estimated Creatinine Clearance > 125 ml/min; Glucose 78 mg/dl (70-99); Potassium 4.3 mmol/L (3.5-5.1); Sodium 134 mmol/L (135-145); eGFR > 60.00
[2024-08-19] MEDS: VITAMIN C 1000 MG PO (09:02)
[2024-08-19] MEDS: THERAGRAN 1 TABLET PO (09:02)
[2024-08-19] MEDS: INDERAL LA 80 MG PO (09:02)
[2024-08-19] MEDS: VITAMIN B-12 1000 MCG PO (09:03)
[2024-08-19] MEDS: FOLVITE 1 MG PO (09:03)
[2024-08-19] MEDS: FEOSOL 325 MG PO (09:03)
[2024-08-19] MEDS: PEPCID 20 MG PO (09:03)
[2024-08-19] MEDS: MAG-TAB SR 84 MG PO ×2 (09:03→20:57)
[2024-08-19] MEDS: PROTONIX 40 MG PO (09:04)
[2024-08-19] MEDS: KCL 40 MEQ PO ×2 (09:04→20:57)
[2024-08-19] MEDS: LIDOCAINE 4% PATCH TOPICAL (09:04)
[2024-08-19] MEDS: NEURONTIN 200 MG PO ×2 (09:04→20:56)
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
[2024-08-19 11:28] VITALS: BP 128/92
--- NOTE | 2024-08-19 12:53 | W.PN.GI.CBS2 ---
Today's Communication / Plan
-
for colonoscopy tomorrow
Assessment / Plan
-
Domenica Paulson is a 18 y.o. female who was initially admitted on July 30 with rash and sepsis, requiring pressors and antibiotics, found to be profoundly malnourished, with leukopenia, severe B12, folate, vitamin D deficiencies as well as scurvy,
GI asked to reevaluate due to NAHEED and elevated liver enyzmes.
1. Severe malnutrition: Protein and vitamin malnutrition, with initial sepsis and cellulitis, now all much improved. Likely secondary to extremely poor intake, though patient states that she was eating some regular food prior to admission.
Underlying GI malabsorptive process to cause such a diffuse malabsorption at this age seems less likely though is not excluded.
-->Stool studies: normal stool fat and pancreatic elastase; mildly elevated fecal calprotectin-92; neg. crypto/giardia, stool leukocytes, salmonella/shigella, camplobacter, shiga-toxin, c.diff
-->s/p EGD for severe protein energy malnutrition and also anemia:
- No gross lesions in the entire esophagus.
- Z-line variable, 33 cm from the incisors. Biopsied.
- Nodular mucosa in the entire stomach. Biopsied.
- The examined duodenum was normal but very friable. Biopsies were taken with a cold forceps for histology.
2. Elevated LFTs
-Imaging shows hepatic steatosis and hepatomegaly.
-On imaging she was found to have nonocclusive splenic vein thrombosis was evaluated by hematology and recommended against anticoagulation
-LFTs increasin.1 --> 3.9 (from 08/08 to 08/17, not checked inbetween) --> 4.6, Dbili 3.5, AST 96, ALT 33, Alk phos 192
-AMA, ASMA, ceruloplasmin, alpha-1 antitrypsin pending
-check hemolysis labs
-Hepatitis serologies and celiac panel negative
-If LFTs continue to increase, recc repeating abdominal US w/ dopplers
Plan
-await endoscopy biopsies
- continue to trend lfts which are stable today
- for colonoscopy tomorrow. Does need to take some prep and will give miralax
d/w Dr. Mckeon
Subjective
Subjective
Date of Service: August 19, 2024
pt without specific complaints, refuses to take a prep for a colonoscopy. d/w pt through staff interpreter [id number]
Objective
Data Reviewed
Laboratory Data:
Laboratory Results
08/19/24 07:43
08/19/24 07:43
Laboratory Results
PT 14.5 Sec (11.4-14.6) 08/18/24 09:45
INR 1.08 08/18/24 09:45
APTT 34.3 Sec (23.4-35.0) 08/03/24 05:03
Phosphorus 3.8 mg/dl (2.5-4.5) 08/10/24 08:29
Magnesium 1.8 mg/dl (1.6-2.3) 08/10/24 08:29
Total Bilirubin 4.0 mg/dl (0.2-1.3) H 08/19/24 07:43
AST 105 U/L (14-36) H 08/19/24 07:43
ALT 34 U/L (0-35) 08/19/24 07:43
Alkaline Phosphatase 191 U/L (38-126) H 08/19/24 07:43
Vital Signs and I&O:
Vital Signs
Temp Pulse Resp BP Pulse Ox
99.7 F 114 17 128/92 95
08/19/24 11:28 08/19/24 11:28 08/19/24 11:28 08/19/24 11:28 08/19/24 11:28
I&O
08/18/24 08/19/24 08/20/24
06:59 06:59 06:59
Intake Total 600 / 600 720 / 720
Balance 600 / 600 720 / 720
Physical Exam
Physical Exam
GI: Soft and Non Tender
[2024-08-19 15:21] VITALS: BP 117/80
--- NOTE | 2024-08-19 15:56 | CM ---
Reviewed the chart notes and spoke with the patient at the bedside using the video fretted string instrument repairer. Discussed with the patient why she is refusing colonoscopy and working with PT/OT. Per patient, 'I don't feel safe'. Per discussion regarding
colonoscopy 'I don't want to do it, I don't feel safe'. Discussed working with PT/OT. Patient stated 'I want to do it at my pace so I don't hurt or become scared'. CM attempted to explain that PT/OT's goals are for her to be strong enough to
return to home and that they are not forcing her, but encouraging her to challenge herself. Patient became tearful. CM thanked her for discussion. RN updated. CM continues to be available to patient/family and is monitoring medical plan for
needs at discharge.
Plan: Discharge to home when medically stable.
[2024-08-19] MEDS: LOVENOX SC (17:41)
[2024-08-19 19:43] VITALS: BP 141/99
[2024-08-19 23:34] VITALS: BP 138/87
--- NOTE | 2024-08-20 01:19 | PTCARENOTE ---
pt scheduled for colonoscopy in am, refuses to take miralax and non complaint with ordered diet, eating food provided by friend. Educated pt through steamfitter [id number], verbalizes understanding, however continues to refuse.
[2024-08-20 03:33] VITALS: BP 130/71
[2024-08-20 06:00] VITALS: BMI 29.5
[2024-08-20 08:01] VITALS: BP 122/79
[2024-08-20 09:04] LABS: Ceruloplasmin 19 mg/dL (16-45)
[2024-08-20 09:14] LABS: Blood Urea Nitrogen 2 mg/dl (7-17); Carbon Dioxide 23 mmol/L (22-30); Chloride 107 mmol/L (98-107); Estimated Creatinine Clearance > 125 ml/min; Glucose 83 mg/dl (70-99); Potassium 3.8 mmol/L (3.5-5.1); Sodium 134 mmol/L (135-145); eGFR > 60.00
[2024-08-20 09:44] LABS: Hematocrit 25.4 % (37.0-47.0); Mean Corp Hgb Conc. 31.5 g/dL (33.0-37.0); Mean Corpuscular Hgb 30.3 pg (27.0-31.0); Mean Corpuscular Volume 96.2 fL (81.0-99.0); Mean Platelet Volume 9.9 fL (7.4-10.4); Platelet Count 375 10^3/uL (130-400); Red Blood Cell Count 2.64 10^6/uL (4.20-5.40); Red Cell Dist. Width 22.2 % (11.5-14.5); White Blood Cell Count 4.3 10^3/uL (4.8-10.8)
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
[2024-08-20] MEDS: VITAMIN C 1000 MG PO (09:55)
[2024-08-20] MEDS: VITAMIN B-12 1000 MCG PO (09:56)
[2024-08-20] MEDS: PEPCID 20 MG PO (09:56)
[2024-08-20] MEDS: THERAGRAN 1 TABLET PO (09:56)
[2024-08-20] MEDS: KCL 40 MEQ PO (09:56)
[2024-08-20] MEDS: FOLVITE 1 MG PO (09:56)
[2024-08-20] MEDS: NEURONTIN 200 MG PO (09:56)
[2024-08-20] MEDS: MAG-TAB SR 84 MG PO (09:56)
[2024-08-20] MEDS: FEOSOL 325 MG PO (09:56)
[2024-08-20] MEDS: PROTONIX 40 MG PO (09:56)
[2024-08-20] MEDS: INDERAL LA 80 MG PO (09:56)
[2024-08-20] MEDS: LIDOCAINE 4% PATCH TOPICAL (09:57)
--- NOTE | 2024-08-20 09:59 | CM ---
Addendum entered by Adrianne Berger RN 08/21/24 09:13:
CM spoke with Kenyatta MARIE ([phone]) to update on patient's AMA discharge.
Addendum entered by Adrianne Berger RN 08/20/24 16:04:
CM met with patient in room. COnfirmed that patient understands that she will have no nursing support at home. CM provided patient with phone number for [facility]. Patient stated she understood and would follow up.
Addendum entered by Adrianne Berger RN 08/20/24 10:30:
CM updated CM lead generation specialist with discharge planning challenges. As per resident, medical team will speak with patient regarding leaving AMA.
CM received TT from Ana Lugo RN stating that they have concerns regarding transportation home for patient as she is currently max assist and wheelchair van would be unsafe.
Original Note:
CM spoke with Kenyatta MARIE ([phone]). Kenyatta advise this CM that patient is refusing all care at this time. Kenyatta stated that patient on her visit with patient, patient declined assistance. If patient is discharged, Kenyatta will attempt
to follow patient in the community.
Plan for hospitalist to discuss AMA with patient. CM will follow.
[2024-08-20 10:26] LABS: Total Protein 6.3 g/dl (6.3-8.2)
[2024-08-20 10:36] LABS: Haptoglobin 87 mg/dL (30-200)
[2024-08-20 11:02] LABS: % Basophils 0.2 % (0-2); % Eosinophils 4.5 % (0-6); % Immature Granulocytes 0.5 % (0-0.5); % Lymphocytes 31.9 % (20.5-51.1); % Monocytes 8.9 % (1.7-9.3); Absolute Eosinophils 0.2 10^3/uL (0-0.7); Absolute Lymphocytes 1.4 10^3/uL (1.2-3.4); Absolute Monocytes 0.4 10^3/uL (0.1-0.6); Absolute Neutrophils 2.3 10^3/uL (1.4-6.5); Nucleated Red Blood Cells % 0 %
[2024-08-20 11:19] VITALS: BP 132/81
--- NOTE | 2024-08-20 13:30 | WOUNDNOTE ---
WOC RN Note: Patient's bilateral buttocks ulcers continue to heal. Sacral skin intact. Skin on heels intact. L foot/ankle remain tender. Bruising improved. Buttocks dressings changed. Instructed patient using director corporate compliance ([employer] #[id number]) buttocks
skin/wound care, pressure injury prevention with turning q 2 hrs, perform ankle ROM, dorsiflexion exercises to improve/avoid foot drop. Patient agreed to try multipodus splints. t/c Spoke with PT Hailee who agrees she would benefit from multipodus
splints. t/c SPD and ordered multipodus splints. Will confirm with hospitalist. Patient instructed to take home the bariatric air chair cushion. Discussed with RN Jordon.
--- NOTE | 2024-08-20 14:00 | WOUNDNOTE ---
[facility] RN note: Dr. Leyva approved multipodus splints. Size medium splints applied to patient's Le's. Patient tolerated well. Using underwriting assistant, instructed patient to wear multipodus splints while in bed, and remove splints 2hrs twice a day and as
needed for skin checks. Instructed patient not to wear the splints while out of bed and encouraged patient to get out of bed to chair more with bariatric air chair cushion. Wound care supplies given.
[2024-08-20 14:55] LABS: F-Actin Antibody IgG 24 Units (0-19); Mitochondrial M2 Ab, IgG 22.8 Units (0.0-24.9)
[2024-08-20 15:28] VITALS: BP 140/106
[2024-08-20] MEDS: AFLURIA (36 mos+) 2024-2025 FORMULA 0.5 ML IM (15:54)
--- NOTE | 2024-08-20 15:54 | CM ---
[place] cardiac rehabilitation specialist approved S ambulance transport to help facilitate a safe transport home.
[2024-08-20] MEDS: LOVENOX SC (16:41)
--- NOTE | 2024-08-20 17:37 | W.PN.UPDATE ---
Update Note
Progress Note Update
Patient was planned for colonoscopy today but she refused the procedure. Spoke with the patient using dredge pipe operator service explaining the indication for the procedure and possible consequence of not having the procedure done which would include
inability to find cause of her anemia and likely persistence of it. I had explained to the patient that as long as she understands the indication for colonoscopy and possible consequences of not having the procedure, the decision will be ultimately
be up to the patient. Patient refused to explain her reasoning for refusing her colonoscopy and deferred the procedure. Will sign off.
--- NOTE | 2024-08-20 18:00 | PTCARENOTE ---
Patient leaving AMA by ambulance pickup at 1800. Friend at bedside. Friend will be waiting at the house for patient.
[2024-08-23 07:30] LABS: Smooth Muscle Antibody Titer <1:20 (<1:20)
[2024-08-23 15:27] LABS: Alpha-1-Antitrypsin 161 mg/dL (90-200)
== END 2024-08-20 19:03 | disposition left against medical advice (07) | DRG 871 ==
LOC: 2 NORTH 17:02
PROVIDERS: Hospitalist; Internal Medicine Gastroenterology; Nurse Practitioner Gerontology; Nurse Practitioner Primary Care; Physician Assistant Medical; Registered Nurse; Student in an Organized Health Care Education/Training Program; ADMITTING PHYSICIAN Internal Medicine; ATTENDING PHYSICIAN Internal Medicine; CONSULT PHYSICIAN Internal Medicine Cardiovascular Disease; CONSULT PHYSICIAN Internal Medicine Critical Care Medicine; CONSULT PHYSICIAN Internal Medicine Gastroenterology; CONSULT PHYSICIAN Internal Medicine Infectious Disease; CONSULT PHYSICIAN Surgery; EMERGENCY PHYSICIAN Student in an Organized Health Care Education/Training Program; OTHER PHYSICIAN Internal Medicine Hematology & Oncology; OTHER PHYSICIAN Psychiatry & Neurology Psychiatry
PROC: 30233N1 Transfusion of Nonautologous Red Blood Cells into Peripheral Vein, Percutaneous Approach (ICD-10-PCS; 2024-07-31)
PROC: 0DB68ZX Excision of Stomach, Via Natural or Artificial Opening Endoscopic, Diagnostic (ICD-10-PCS; 2024-08-16)
PROC: 0DB98ZX Excision of Duodenum, Via Natural or Artificial Opening Endoscopic, Diagnostic (ICD-10-PCS; 2024-08-16)
PROC: 3E02340 Introduction of Influenza Vaccine into Muscle, Percutaneous Approach (ICD-10-PCS; 2024-08-20)
DX: A41.9 Sepsis, unspecified organism (principal); E43 Unspecified severe protein-calorie malnutrition; R57.1 Hypovolemic shock; R65.21 Severe sepsis with septic shock; E87.20 Acidosis, unspecified; L03.317 Cellulitis of buttock; I82.890 Acute embolism and thrombosis of other specified veins; T76.51XA Adult forced sexual exploitation, suspected, initial encounter; D58.9 Hereditary hemolytic anemia, unspecified; D50.0 Iron deficiency anemia secondary to blood loss (chronic); L89.322 Pressure ulcer of left buttock, stage 2; L89.312 Pressure ulcer of right buttock, stage 2; E88.09 Other disorders of plasma-protein metabolism, not elsewhere classified; E66.9 Obesity, unspecified; Z68.35 Body mass index [BMI] 35.0-35.9, adult; K76.0 Fatty (change of) liver, not elsewhere classified; E53.8 Deficiency of other specified B group vitamins; E55.9 Vitamin D deficiency, unspecified; E54 Ascorbic acid deficiency; R10.31 Right lower quadrant pain; Z53.29 Procedure and treatment not carried out because of patient's decision for other reasons; E87.6 Hypokalemia; K22.89 Other specified disease of esophagus; K31.89 Other diseases of stomach and duodenum; R11.2 Nausea with vomiting, unspecified; R00.0 Tachycardia, unspecified; R19.7 Diarrhea, unspecified; D72.819 Decreased white blood cell count, unspecified; D63.8 Anemia in other chronic diseases classified elsewhere; Z60.3 Acculturation difficulty; Z60.8 Other problems related to social environment; F41.9 Anxiety disorder, unspecified; R79.89 Other specified abnormal findings of blood chemistry; S40.022A Contusion of left upper arm, initial encounter; S40.021A Contusion of right upper arm, initial encounter; X58.XXXA Exposure to other specified factors, initial encounter; R07.89 Other chest pain; R20.3 Hyperesthesia; Z74.01 Bed confinement status; Z59.71 Insufficient health insurance coverage; Z56.0 Unemployment, unspecified; Z23 Encounter for immunization; Z11.52 Encounter for screening for COVID-19
CPT/HCPCS: 88305; 71046; 71250; 71260; 71275; 73590; 73610; 73630; 74019; 74176; 74177; 76700; 80048; 80053; 80306; 80307; 81003; 81015; 82103; 82104; 82180; 82248; 82306; 82390; 82550; 82607; 82653; 82705; 82728; 82746; 82784; 82805; 83010; 83036; 83516; 83540; 83550; 83605; 83615; 83735; 83993; 84100; 84155; 84443; 84484; 84703; 85014; 85018; 85025; 85027; 85045; 85610; 85652; 85730; 86015; 86140; 86231; 86256; 86381; 86704; 86706; 86708; 86709; 86780; 86803; 86850; 86900; 86901; 86920; 87040; 87045; 87046; 87070; 87077; 87324; 87328; 87329; 87340; 87389; 87427; 87449; 87491; 87502; 87591; 87798; 87807; 87811; 88342; 89055; 90686; 93005; 93306; 93970; 93971; 93975; 96365; 96366; 96367; 96375; 97163; 97167; 97530; 97535; 99285; G0008; P9016; Q9967

== ENCOUNTER 2024-09-15 12:19 | Emergency (ER) | payer SELFPAY ==
--- NOTE | 2024-09-15 12:27 | ED.GENMED ---
Addendum entered and electronically signed by Eliseo Munroe DO 09/15/24 14:57:
Previously reviewed with biomedical equipment technician they will take jurisdiction for the body, records from this visit a prior visit fax to the biomedical equipment technician
Original Note:
History of Present Illness
General
Chief Complaint: CODE
Source: ambulance crew
Exam Limitations: clinical condition
Time Seen by Provider: 09/15/24 12:23
Nursing documentation reviewed up to this point in time: agreed with
History of Present Illness
History of Present Illness:
18 year-old female from [facility] history of' leukemia' apparently signed out AMA recently, call for cardiac arrest intubated with a Sohail LT IO line in place ACLS protocol epi x 5-- asystolic for greater than 30 minutes--no shockable rhythms, no
ROSC--[place] detectives involved although nothing suspicious per the medics other than a prescription for tramadol from a [facility] pharmacy filled in [place] in [place]
Patient is essentially DOA
Past History
Past History
ED Past Medical History: Other (Unknown infection)
Social History
Tobacco: Other
Alcohol: Other
Drug: Other
Personal: Other
Living: other
Employment: Other
Family History
Family History: Other
Review of Systems
Review of Systems
Unable to obtain full review of systems at this time due to: intubated
Other source history: ambulance crew
All Other Systems: Not applicable
Phy Exam
Physical Exam
Physical Exam:
Physical Exam
General: Asystolic 18-year-old female fixed dilated cool
Neck: Midline trachea
Heart: No heart rate
Lungs: No spontaneous respiratory
Abdomen: Old appearing ecchymosis
Neuro: Fixed dilated
Skin: Ecchymosis over abdomen and extremity
Psychiatric: Unable to assess
Extremities: IO x 2 cool motted extremities
Course
Vital Signs
Initial and Last Documented VS:
Initial Vital Signs
Pulse
0
09/15/24 12:20
Last Documented Vital Signs
Pulse
0
09/15/24 12:20
MDM/Problems Addressed
Differential Diagnosis Includes:
Cardiac arrest respiratory arrest
*Pulse Oximetry
Patient hypoxic: no
*Cloth Examiner Machine Interpretation
Rate: other
Interpretation: abnormal
Heart Rate: 0
Rhythm: other (Asystole)
*Critical Care Note
Total Time (30-74mins, 75-104mins- exclusive of procedures): 2
Data Reviewed
Review of Other/Old Records Reveals: Records (I briefly reviewed discharge summary GI notes oncology notes)
Source: ambulance crew
Update Note
Update Note:
Patient asystolic for greater than 30 minutes, fixed dilated with signs of rigor
Essentially DOA
Prior records reviewed is unclear if the patient really had leukemia from my review of the records perhaps had a reactive leukopenia,
Call placed to the biomedical equipment technician
EMS reports that the detectives were already involved
ED Attending Note
-
Portions of this chart may have been created with voice recognition software.� Occasional wrong word or��sound alike� substitutions may have occurred due to the inherent limitations of voice recognition software.
Discharge Plan
Departure
Prescriptions:
No Action
No Current Medications
0
Referrals:
UNKNOWN - PT NOT,INTERVIEWE [Family Provider] -
Interventions
Interventions:
*Risk Screen - Suicide Last Done: 09/15/24 12:24
*General Assessment Last Done: 09/15/24 12:24
*Neglect/Abuse Screening Last Done: 09/15/24 12:24
*ED COVID-19 Vaccine History Last Done: 09/15/24 12:24
ED- Cardiac Assessment Last Done: 09/15/24 12:25
ED- Pulmonary Assessment Last Done: 09/15/24 12:25
Discharge Date and Time
Print Language: LITHUANIAN
== END 2024-09-15 15:04 | disposition expired ==
LOC: EMR 12:19
PROVIDERS: EMERGENCY PHYSICIAN Emergency Medicine
DX: I46.9 Cardiac arrest, cause unspecified (principal); C95.90 Leukemia, unspecified not having achieved remission
CPT/HCPCS: 99283